=== PATIENT | male | born 1955 | race Caucasian/White ===

== ENCOUNTER → 2019-05-08 08:49 | Outpatient (CLI) | payer OTHER, SELFPAY ==
--- NOTE | 2019-05-08 | DI.ECHO.S_ITS ---
[facility] +---------+ : : [address] : : : [place], [place] : : : : [id number] : : : : Phone: [phone] Echocardiogram Report + + :Name: MADDIE DE LEON Study Date: 05/08/2019 Height: 69 in : :[facility] Exam Location: [facility] Weight: 183 lb : : Gender: Male BSA: 2.0 m2 : :: 1955 Age: 63 yrs BP: 128/74 mmHg: :Reason For Study: DIZZINESS : : Performed By: Conrado Yu : :Referring: ADELA VILLEDA : + + Interpretation Summary Overall left ventricular systolic function is preserved with the ejection fraction visually estimated to be 55-60% with thinning and akinesis of the proximal fourth of the inferior wall but no other focal wall motion abnormalities. There is borderline concentric left ventricular hypertrophy with diastolic parameters that suggest probable normal left ventricular diastolic function and normal filling pressures. There has been no significant change since the previous study. The right ventricle is at the upper limits of normal in size and systolic function is normal and appears unchanged compared to the previous study. The right ventricular systolic pressure is estimated to be at least 24 mmHg based on an estimated right atrial pressure of 3 mm Hg, and it is likely slightly lower compared to the previous study. Both atria are normal in size but both have slightly increased in size compared to the previous study. There is no significant valvular heart disease. Procedure: A two-dimensional transthoracic echocardiogram with color flow and Doppler was performed. The study quality was technically difficult. Comparison is made with the echocardiogram of 11/20/10. The patient was in normal sinus rhythm during the exam. Left Ventricle: The left ventricle is normal in size. There is borderline concentric left ventricular hypertrophy. Overall left ventricular systolic function is preserved. The ejection fraction is estimated to be 55-60%. There is thinning and akinesis of the proximal fourth of the inferior wall but no other focal wall motion abnormalities. There is been no significant change from the previous exam. Diastolic parameters suggest probable normal left ventricular diastolic function and normal filling pressures. There has been no significant change since the previous study. Right Ventricle: The right ventricle is at the upper limits of normal in size. The right ventricular systolic function is normal. This is unchanged compared to the previous study. Atria: Both atria are normal in size. This is slightly increased in size compared to the previous study. The interatrial septum is intact with no evidence for an atrial septal defect. Mitral Valve: The mitral valve leaflets are slightly calcified. The mitral valve leaflets appear to open well. There is trace mitral regurgitation. Aortic Valve: The aortic valve is trileaflet. The aortic valve is slightly calcified. The aortic valve opens well. No aortic regurgitation is present. Tricuspid Valve: The tricuspid valve is normal in structure and function. There is trace tricuspid regurgitation. The right ventricular systolic pressure is estimated to be at least 24 mmHg based on an estimated right atrial pressure of 3 mm Hg. This is slightly lower compared to the previous study. Pulmonic Valve: The pulmonic valve is not well visualized. There is no pulmonic valvular regurgitation. There is no significant valvular heart disease. Great Vessels: The aortic root is normal size. The ascending aorta could not be visualized. The pulmonary artery is normal size. The IVC is of normal diameter and collapses greater than 50% with a sniff. This suggests a low right atrial pressure of 3 mm Hg. Pericardium/ Pleura There is no pericardial effusion. There is no pleural effusion. MMode/2D Measurements & Calculations LVIDd: 4.1 cm LVOT diam: 2.2 cm LVIDs: 3.3 cm Ao root diam: 2.8 cm FS: 19.4 % EPSS: 0.52 cm IVSd: 0.95 cm LVPWd: 1.0 cm LV paz. diameter/BSA (cm/m^2): 2.1 LV sys. diameter/BSA (cm/m^2): 1.7 LA dimension: 3.4 cm RA long axis: 4.6 cm LA A2 area: 20.3 cm2 RA area: 16.3 cm2 LA A4 area: 17.4 cm2 RA vol: 49.8 ml LA length (vol): 5.0 cm RA : 25.0 ml/m2 LA vol: 60.3 ml IVC diam: 2.1 cm LA vol index: 30.3 ml/m2 Doppler Measurements & Calculations Ao V2 max: 135.1 cm/sec LVOT Max Jordan: 81.9 cm/sec Ao V2 mean: 101.5 cm/sec LV V1 max P.7 mmHg Ao max P.3 mmHg LV V1 VTI: 20.2 cm Ao mean P.4 mmHg JOHN(I,D): 2.8 cm2 Ao V2 VTI: 28.1 cm JOHN(V,D): 2.4 cm2 sev ratio: 0.72 JOHN indexed to BSA (cm^2/m^2): 1.4 MV E max jordan: 57.0 cm/sec TR max jordan: 228.5 cm/sec MV A max jordan: 66.8 cm/sec TR max P.9 mmHg MV E/A: 0.85 PA V2 max: 74.1 cm/sec Med Peak E' Jordan: 7.7 cm/sec PA V2 mean: 59.0 cm/sec E/E' med: 7.4 PA mean P.5 mmHg Lat Peak E' Jordan: 7.9 cm/sec PA pr(Accel): 44.1 mmHg E/E' lat: 7.2 PA Accel Time: 0.08 sec E/e' average: 7.3 MV dec time: 0.22 sec SV(PAULOT): 78.7 ml Reading Physician:PM
== END ==
PROVIDERS: PCP Nurse Practitioner Family; Visit Provider Specialist
DX: R42 Dizziness and giddiness (principal)
CPT/HCPCS: 93306

== ENCOUNTER 2023-08-14 13:58 | Emergency (ER) | payer MEDICARE, OTHER, SELFPAY ==
[2023-08-14] VITALS (13 sets, daily range): BP systolic 136–174; BP diastolic 69–90; PULSE 60–96; RESP 16–20; TEMP 36.6–37.3; O2SAT 93–99; BMI 27.0
[2023-08-14 14:51] LABS: Add Manual Diff / Slide Review NO; Basophils Absolute Auto 100 /uL (0-100); Basophils Percent Auto 0.7 % (0-2); Eosinophils Absolute Auto 200 /uL (0-450); Eosinophils Percent Auto 1.2 % (2-4); Hematocrit 41.8 % (41-53); Hemoglobin 14.8 g/dL (13.5-17.5); Lymphocytes Absolute Auto 1800 /uL (1100-4500); Lymphocytes Percent Auto 12.5 % (25-40); Mean Corpuscular HGB Conc 35.3 % (30-36); Mean Corpuscular Hemoglobin 30.9 PG (26-34); Mean Corpuscular Volume 87.4 fL (80-100); Monocytes Absolute Auto 1000 /uL (0-900); Neutrophils Absolute Auto 11200 /uL (1500-7000); Neutrophils Percent Auto 78.6 % (50-75); Platelet Count 254 X10^3/uL (150-400); Red Blood Cell Count 4.78 X10^6/uL (4.5-5.9); Red Cell Distribution Width 13.1 % (11.6-14.8); White Blood Cell Count 14.2 X10^3/uL (4.5-11.0)
[2023-08-14 15:30] LABS: Alanine Aminotransferase 21 IU/L (<50); Albumin 4.5 g/dL (3.5-5.0); Albumin Globulin Ratio 1.5 (1.0-2.8); Alkaline Phosphatase 50 U/L (38-126); Aspartate Aminotransferase 26 IU/L (17-59); BUN Creatinine Ratio 11.5 (6-22); Bilirubin Total 0.6 mg/dL (0.2-1.3); Blood Urea Nitrogen 13 mg/dL (9-20); Calcium 9.6 mg/dL (8.4-10.2); Carbon Dioxide 28 mmol/L (22-32); Chloride 90 mmol/L (98-107); Estimated Glomerular Filt Rate > 60 mL/min (>60); Glucose 133 mg/dL (80-110); HEMOLYSIS < 15 (0-50); Lipase 88 U/L (23-300); Potassium 4.2 mmol/L (3.4-5.1); Sodium 128 mmol/L (137-145); Total Protein 7.5 g/dL (6.3-8.2)
--- NOTE | 2023-08-14 17:16 | DI.CT.S_ITS ---
PROCEDURE: CT ABDOMEN PELVIS W CON INDICATIONS: Lower abdominal pain TECHNIQUE: After the administration of IV contrast, axial sections were acquired from the lung bases to the pubic symphysis. Coronal and sagittal reformats were performed. For radiation dose reduction, the following was used: automated exposure control, adjustment of mA and/or kV according to patient size. COMPARISON: [facility], CT, ABDOMEN/PELVIS WITH CONTRAST, 01/30/2011, 18:47. FINDINGS: Image quality: Excellent. Lung bases: Unremarkable. Heart: No significant findings. ABDOMEN: Liver: Small cyst. Gallbladder: Not distended. No pericholecystic fluid. Biliary ducts: Unremarkable. Pancreas: Unremarkable. Spleen: Small splenule. Adrenal Glands: No nodule. Kidneys and Ureters: No hydronephrosis. Small simple left renal cysts. Stomach and Bowel: Inflammatory change about the sigmoid colon in the left lower quadrant, (2/61). There is adjacent thickening of the sigmoid colon. No fluid collection to suggest abscess. No free air identified. The appendix is partially visualized and is not dilated with air within its lumen. No small bowel obstruction. The stomach is within normal limits. Peritoneum: No abnormal intraperitoneal fluid. No free air. Ventral Wall: No hernia. Abdominal Nodes: No retroperitoneal or mesenteric adenopathy by size criteria. Vessels: Aorta and inferior vena cava are normal in size. Retroaortic left renal vein. PELVIS: Pelvic Organs: Prostatomegaly. Bladder: No stone. Pelvic Nodes: No enlarged lymph nodes. Miscellaneous: No inguinal hernias are seen. Bones: No suspicious osseous lesion. Bilateral L5 pars defect. IMPRESSION: 1. Left lower quadrant diverticulitis. No abscess. Thickening of the sigmoid colon. Recommend follow-up colonoscopy if not recently performed to exclude malignancy. 2. The appendix is partially visualized and is within normal limits. 3. No small bowel obstruction. No free fluid. Comment: Findings were discussed with Dr. Bailey at time of dictation. Dictated by: Adam Zheng M.D. on 08/14/2023 at 18:00 Approved by: Adam Zheng M.D. on 08/14/2023 at 18:10
--- NOTE | 2023-08-14 17:25 | ED_ITS ---
HPI - Abdominal Pain <Fahad Morales MD - Last Filed: 08/20/23 08:32> General Chief Complaint: Abdominal Pain Stated Complaint: Lower Stomach pain Time Seen by Provider: 08/14/23 17:08 Source: patient Mode of arrival: Ambulatory History of Present Illness HPI narrative: Patient here for complaints of bilateral lower abdominal pain with dysuria. Ongoing for the past 10 days. Patient has history of diverticulosis by colonoscopy in the past but no history of diverticulitis. Has had chills, has had nausea without vomiting. Has had diarrhea. No black or bloody stools. Pain worse with palpation or movement. He does not want anything for pain at this time. Pain is sharp he states. Denies any other abdominal surgical history Related Data Home Medications Medication Instructions Recorded Confirmed LISINOPRIL (Zestril / Prinivil) 5 mg PO BID ##0 01/30/11 Metoprolol Tartrate (Lopressor) 50 mg PO BID ##0 01/30/11 [FISH OIL] 1,000 mg BID ##0 01/30/11 nitroglycerin 0.3 mg sublingual 0.3 mg sublingual PRN PRN #0 tabs 08/18/16 tablet (Nitrostat) aspirin 81 mg tablet,delayed ##0 12/30/17 release rosuvastatin 40 mg tablet (Crestor) ##0 12/30/17 Previous Rx's Medication Instructions Recorded ciprofloxacin HCl 500 mg tablet 500 mg PO BID #14 tabs 12/30/17 (Cipro) metronidazole 500 mg tablet 500 mg PO BID #14 tabs 12/30/17 (Flagyl) amoxicillin 875 mg-potassium 1 tab PO Q12H #20 tabs 08/14/23 clavulanate 125 mg tablet hydrocodone 5 mg-acetaminophen 325 1 tab PO Q4-6H PRN pain #10 tabs 08/14/23 mg tablet ondansetron 4 mg disintegrating 4 mg PO TID-QID PRN nausea and 08/14/23 tablet vomiting #10 tabs Allergies Allergy/AdvReac Type Severity Reaction Status Date / Time No Known Drug Allergies Allergy Unverified 08/11/23 13:48 Review of Systems <Fahad Morales MD - Last Filed: 08/20/23 08:32> Review of Systems Narrative: GENERAL: Positive chills, negative fatigue, malaise, fever, sweats. HEENT: negative sinus pain, ear pain, sore throat RESPIRATORY: negative dyspnea, cough CARDIOVASCULAR: negative chest pain, palpitations GASTROINTESTINAL: Positive nausea, abdominal pain : negative dysuria, frequency, hematuria, patient states uncomfortable with urination MUSCULOSKELETAL: negative muscle or bony pain SKIN: negative rash, skin lesions NEUROLOGIC: negative weakness, numbness ROS Unobtainable: All systems reviewed & are unremarkable except as noted in HPI and below Patient History <Fahad Morales MD - Last Filed: 08/20/23 08:32> Social History Smoking Status: Current every day smoker Smoking Status: Current every day smoker tobacco type: cigarettes Substance Use Type: does not use Exam <Fahad Morales MD - Last Filed: 08/20/23 08:32> Narrative Exam Narrative: GENERAL: in no distress, not toxic not dyspneic HEAD: Normocephalic. EYES: Pupils equal round ENT: Mucous membranes moist. NECK: Trachea midline. CARDIOVASCULAR: Regular rate and rhythm RESPIRATORY: Clear to auscultation. Breath sounds equal bilaterally. No wheezes, rales, or rhonchi. GASTROINTESTINAL: Abdomen soft, abdomen is soft, there is reproducible right lower quadrant suprapubic and left lower quadrant tenderness. No pain out of proportion to exam. Bowel sounds are present. No peritoneal signs. No CVA tenderness. EXTREMITIES: No gross deformities. BACK: No flank tenderness. NEURO: AOx4. Clear speech SKIN: Warm and dry PSYCH: Not anxious, is cooperative Initial Vital Signs Initial Vital Signs: Vital Signs Temperature 99.1 F 08/14/23 14:03 Pulse Rate 78 08/14/23 14:03 Respiratory Rate 18 08/14/23 14:03 Blood Pressure 153/85 H 08/14/23 14:03 Pulse Oximetry 99 08/14/23 14:03 Oxygen Delivery Method Room Air 08/14/23 14:03 <Jasiel Bailey DO - Last Filed: 08/15/23 01:27> Initial Vital Signs Initial Vital Signs: Vital Signs Temperature 99.1 F 08/14/23 14:03 Pulse Rate 78 08/14/23 14:03 Respiratory Rate 18 08/14/23 14:03 Blood Pressure 153/85 H 08/14/23 14:03 Pulse Oximetry 99 08/14/23 14:03 Oxygen Delivery Method Room Air 08/14/23 14:03 Course <Fahad Morales MD - Last Filed: 08/20/23 08:32> Orders Ordered: Discontinued Medications Sodium Chloride (Normal Saline 0.9%) 1,000 mls @ 1,000 mls/hr IV BOLUS ONE Stop: 08/14/23 18:15 Last Infusion: 08/14/23 18:44 Dose: Infused Documented By: Admin: 08/14/23 17:41 Dose: 1,000 mls/hr Documented By: Ondansetron HCl (Ondansetron 4 Mg Odt) 4 mg PO NOW PRN PRN Reason: Nausea And Vomiting Ondansetron HCl (Ondansetron 4 Mg/2 Ml Inj) 4 mg IV NOW PRN PRN Reason: Nausea And Vomiting Vital Signs Vital signs: Vital Signs - 8 hr 08/14/23 17:30 08/14/23 17:37 08/14/23 17:39 Temperature Pulse Rate 60 96 H Respiratory Rate 16 Blood Pressure 142/69 H 166/71 H Pulse Oximetry 97 Oxygen Delivery Method Room Air Oxygen Flow Rate 08/14/23 17:39 08/14/23 18:00 08/14/23 18:00 Temperature Pulse Rate 95 H 86 Respiratory Rate Blood Pressure 155/80 H Pulse Oximetry 99 99 Oxygen Delivery Method Oxygen Flow Rate 08/14/23 18:30 08/14/23 18:46 Temperature 97.9 F Pulse Rate 84 84 Respiratory Rate 16 Blood Pressure 155/80 H Pulse Oximetry 99 99 Oxygen Delivery Method Room Air Oxygen Flow Rate 0 <Jasiel Bailey DO - Last Filed: 08/15/23 01:27> Orders Ordered: Discontinued Medications Sodium Chloride (Normal Saline 0.9%) 1,000 mls @ 1,000 mls/hr IV BOLUS ONE Stop: 08/14/23 18:15 Last Infusion: 08/14/23 18:44 Dose: Infused Documented By: Admin: 08/14/23 17:41 Dose: 1,000 mls/hr Documented By: Ondansetron HCl (Ondansetron 4 Mg Odt) 4 mg PO NOW PRN PRN Reason: Nausea And Vomiting Ondansetron HCl (Ondansetron 4 Mg/2 Ml Inj) 4 mg IV NOW PRN PRN Reason: Nausea And Vomiting Vital Signs Vital signs: Vital Signs - 8 hr 08/14/23 17:30 08/14/23 17:37 08/14/23 17:39 Temperature Pulse Rate 60 96 H Respiratory Rate 16 Blood Pressure 142/69 H 166/71 H Pulse Oximetry 97 Oxygen Delivery Method Room Air Oxygen Flow Rate 08/14/23 17:39 08/14/23 18:00 08/14/23 18:00 Temperature Pulse Rate 95 H 86 Respiratory Rate Blood Pressure 155/80 H Pulse Oximetry 99 99 Oxygen Delivery Method Oxygen Flow Rate 08/14/23 18:30 08/14/23 18:46 Temperature 97.9 F Pulse Rate 84 84 Respiratory Rate 16 Blood Pressure 155/80 H Pulse Oximetry 99 99 Oxygen Delivery Method Room Air Oxygen Flow Rate 0 MDM - Abdominal Pain <Fahad Morales MD - Last Filed: 08/20/23 08:32> Lab Data 08/14/23 14:25 08/14/23 14:25 Labs: Lab Results 08/14/23 08/14/23 Range/Units 14:25 16:12 WBC 14.2 H (4.5-11.0) X10^3/uL RBC 4.78 (4.5-5.9) X10^6/uL Hgb 14.8 (13.5-17.5) g/dL Hct 41.8 (41-53) % MCV 87.4 (80-100) fL MCH 30.9 (26-34) PG MCHC 35.3 (30-36) % RDW 13.1 (11.6-14.8) % Plt Count 254 (150-400) X10^3/uL Neut % (Auto) 78.6 H (50-75) % Lymph % (Auto) 12.5 L (25-40) % [place] % (Auto) 7.0 (3-14) % Eos % (Auto) 1.2 L (2-4) % Baso % (Auto) 0.7 (0-2) % Neut # (Auto) 92110 H (4846-8843) /uL Lymph # (Auto) 1800 (3429-4524) /uL [place] # (Auto) 1000 H (0-900) /uL Eos # (Auto) 200 (0-450) /uL Baso # (Auto) 100 (0-100) /uL Sodium 128 L (137-145) mmol/L Potassium 4.2 (3.4-5.1) mmol/L Chloride 90 L (98-107) mmol/L Carbon Dioxide 28 (22-32) mmol/L BUN 13 (9-20) mg/dL Creatinine 1.13 (0.66-1.25) mg/dL Estimated GFR > 60 (>60) mL/min BUN/Creatinine Ratio 11.5 (6-22) Glucose 133 H (80-110) mg/dL Calcium 9.6 (8.4-10.2) mg/dL Total Bilirubin 0.6 (0.2-1.3) mg/dL AST 26 (17-59) IU/L ALT 21 (<50) IU/L Alkaline Phosphatase 50 (38-126) U/L Total Protein 7.5 (6.3-8.2) g/dL Albumin 4.5 (3.5-5.0) g/dL Globulin 3.0 (1.7-4.1) g/dL Albumin/Globulin Ratio 1.5 (1.0-2.8) Lipase 88 (23-300) U/L Urine Color Yellow Urine Appearance Clear Urine pH 6.5 (4.5-8.0) Ur Specific [place] 1.025 (1.000-1.035) Urine Protein Trace H (Negative) Urine Glucose (UA) Negative (Negative) g/dL Urine Ketones Negative (NEGATIVE) Urine Occult Blood Negative (Negative) Urine Nitrate Negative (Negative) Urine Bilirubin Negative (NEGATIVE) Urine Urobilinogen 1.0 (0.2) E.U./dL Ur Leukocyte Esterase Negative (NEGATIVE) Urine RBC 1-5/hpf (0-5/HPF) Urine WBC 1-5/hpf (0-5/HPF) Ur Squamous Epith Cells 10-30 /hpf H (0-5/HPF) Amorphous Sediment 1+ Urine Bacteria Few (2-10) H (None) Ur Culture Indicated? Specimen cultured Point of care testing: Urine Dip Bedside Urine Glucose Negative Bedside Urine Bilirubin - Negative Bedside Urine Ketone - Negative Urine Specific [place] 1.020 Bedside Urine Occult Blood - Negative Bedside Urine pH 6.0 Bedside Urine Protein +/- 15 Bedside Urine Urobilinogen - Negative Bedside Urine Nitrite - Negative Bedside Urine Leukocytes - Negative Esterase MDM Narrative Medical decision making narrative: Patient here for complaints of bilateral lower abdominal pain with dysuria. Ongoing for the past 10 days. Patient has history of diverticulosis by colonoscopy in the past but no history of diverticulitis. Has had chills, has had nausea without vomiting. Has had diarrhea. No black or bloody stools. Pain worse with palpation or movement. He does not want anything for pain at this time. Pain is sharp he states. Denies any other abdominal surgical history After history and exam CBC CMP normal saline CT abdomen pelvis [facility] CC: Abdominal pain Complicating co-morbidities: None Data collected from: Patient Medical records reviewed: Patient seen here 3 days ago at walk-in clinic for the same, he did not want go to the emergency department at that time Differential considered: Includes but not limited to diverticulitis colitis appendicitis UTI kidney stone Exam documented above, pertinent findings include: Tender lower abdomen bilaterally Lab Test results independently reviewed as above. Pertinent findings: WBC 14.2 sodium 128 AST 26 ALT 21 lipase 88 Urinalysis negative nitrate negative leukocyte esterase Independently reviewed EKG normal sinus rhythm rate [address] elevation or depression Imaging studies independently reviewed: CT abdomen pelvis Consultations: Treatments: Re-evaluations: Discussion: Diagnosis: 6:00 p.m.. Carmen: Sign out to Dr Bailey reassess patient. CT imaging pending results. <Jasiel Bailey, - Last Filed: 08/15/23 01:27> Lab Data Labs: Lab Results 08/14/23 08/14/23 Range/Units 14:25 16:12 WBC 14.2 H (4.5-11.0) X10^3/uL RBC 4.78 (4.5-5.9) X10^6/uL Hgb 14.8 (13.5-17.5) g/dL Hct 41.8 (41-53) % MCV 87.4 (80-100) fL MCH 30.9 (26-34) PG MCHC 35.3 (30-36) % RDW 13.1 (11.6-14.8) % Plt Count 254 (150-400) X10^3/uL Neut % (Auto) 78.6 H (50-75) % Lymph % (Auto) 12.5 L (25-40) % [place] % (Auto) 7.0 (3-14) % Eos % (Auto) 1.2 L (2-4) % Baso % (Auto) 0.7 (0-2) % Neut # (Auto) 72313 H (6984-2040) /uL Lymph # (Auto) 1800 (0426-1911) /uL [place] # (Auto) 1000 H (0-900) /uL Eos # (Auto) 200 (0-450) /uL Baso # (Auto) 100 (0-100) /uL Sodium 128 L (137-145) mmol/L Potassium 4.2 (3.4-5.1) mmol/L Chloride 90 L (98-107) mmol/L Carbon Dioxide 28 (22-32) mmol/L BUN 13 (9-20) mg/dL Creatinine 1.13 (0.66-1.25) mg/dL Estimated GFR > 60 (>60) mL/min BUN/Creatinine Ratio 11.5 (6-22) Glucose 133 H (80-110) mg/dL Calcium 9.6 (8.4-10.2) mg/dL Total Bilirubin 0.6 (0.2-1.3) mg/dL AST 26 (17-59) IU/L ALT 21 (<50) IU/L Alkaline Phosphatase 50 (38-126) U/L Total Protein 7.5 (6.3-8.2) g/dL Albumin 4.5 (3.5-5.0) g/dL Globulin 3.0 (1.7-4.1) g/dL Albumin/Globulin Ratio 1.5 (1.0-2.8) Lipase 88 (23-300) U/L Urine Color Yellow Urine Appearance Clear Urine pH 6.5 (4.5-8.0) Ur Specific [place] 1.025 (1.000-1.035) Urine Protein Trace H (Negative) Urine Glucose (UA) Negative (Negative) g/dL Urine Ketones Negative (NEGATIVE) Urine Occult Blood Negative (Negative) Urine Nitrate Negative (Negative) Urine Bilirubin Negative (NEGATIVE) Urine Urobilinogen 1.0 (0.2) E.U./dL Ur Leukocyte Esterase Negative (NEGATIVE) Urine RBC 1-5/hpf (0-5/HPF) Urine WBC 1-5/hpf (0-5/HPF) Ur Squamous Epith Cells 10-30 /hpf H (0-5/HPF) Amorphous Sediment 1+ Urine Bacteria Few (2-10) H (None) Ur Culture Indicated? Specimen cultured Point of care testing: Urine Dip Bedside Urine Glucose Negative Bedside Urine Bilirubin - Negative Bedside Urine Ketone - Negative Urine Specific [place] 1.020 Bedside Urine Occult Blood - Negative Bedside Urine pH 6.0 Bedside Urine Protein +/- 15 Bedside Urine Urobilinogen - Negative Bedside Urine Nitrite - Negative Bedside Urine Leukocytes - Negative Esterase MDM Narrative Medical decision making narrative: Patient here for complaints of bilateral lower abdominal pain with dysuria. Ongoing for the past 10 days. Patient has history of diverticulosis by colonoscopy in the past but no history of diverticulitis. Has had chills, has had nausea without vomiting. Has had diarrhea. No black or bloody stools. Pain worse with palpation or movement. He does not want anything for pain at this time. Pain is sharp he states. Denies any other abdominal surgical history After history and exam CBC CMP normal saline CT abdomen pelvis MDM CC: Abdominal pain Complicating co-morbidities: None Data collected from: Patient Medical records reviewed: Patient seen here 3 days ago at walk-in clinic for the same, he did not want go to the emergency department at that time Differential considered: Includes but not limited to diverticulitis colitis appendicitis UTI kidney stone Exam documented above, pertinent findings include: Tender lower abdomen bilaterally Lab Test results independently reviewed as above. Pertinent findings: WBC 14.2 sodium 128 AST 26 ALT 21 lipase 88 Urinalysis negative nitrate negative leukocyte esterase Independently reviewed EKG normal sinus rhythm rate [address] elevation or depression Imaging studies independently reviewed: CT abdomen pelvis Consultations: Radiology (Dr. Zheng) called with CT findings noting diverticulitis without perf or abscess, though this is significant thickening. Will need follow up colonoscopy Treatments: Fluids, zofran 6:00 p.m.. Carmen: Sign out to Dr Bailey reassess patient. CT imaging pending results. [1800] (Leo) Patient received in sign out from [Carmen]. I have reviewed the clinical course and performed an independent history and physical exam. Re-evaluations: Patient's pain is well controlled Discussion: Patient with lower abdominal pain sent for evaluation. Multiple diagnoses considered as noted above. Patient shows no signs of sepsis, pain is controlled and he is tolerating orals. There is some elevation of white blood cells and imaging shows diverticulitis without abscess or perforation. He is appropriate for discharge Discharge Plan Departure Patient Disposition: Home Clinical Impression: Diverticulitis Instructions: DI for Diverticulitis Activity Restrictions/Additional Instructions: *You have been diagnosed with [abdominal pain due to diverticulitis] * As we discussed your history and physical exam as well as labs and imaging are very reassuring. There is no evidence of any severe diagnoses that would require a specific or immediate intervention. *What to do: *Please continue to take your regular medications as directed. [x ] New medication prescriptions sent to your pharmacy: [[facility] ] *Please follow up with your primary care provider in 2-3 days, call for an appointment. Let them know you were seen in the Emergency Department and that we ask that you be seen in follow up. We will electronically transmit a record of today's note if your PCP is in our system *Please consider a clear liquid diet for the next 24-48 hours and then slowly advance to regular as tolerated. Also, try to avoid alcohol, nicotine, caffeine, spicy, acidic or fatty foods as this may worsen your symptoms *The CT shows diverticulitis with no evidence of abscess or perforation, but a large amount of thickening. Radiology recommends a colonoscopy after your diverticulitis clears to make sure there is not another underlying problem. Your Primary Care Provider can help you arrange this. *If you do not have a primary care provider please contact the [facility] Resource line at [phone]. They will ask some questions about your medical history and help get you set up with a doctor in the community. *Return to Emergency Department if you should have any new, worsening or concerning symptoms, such as [fever greater than 101 F, shaking chills, worsening pain, persistent vomiting or other bothersome symptoms] Prescriptions: New amoxicillin-pot clavulanate 875-125 mg tablet 1 tab PO Q12H Qty: 20 0RF hydrocodone-acetaminophen 5-325 mg tablet 1 tab PO Q4-6H PRN (Reason: pain) Qty: 10 0RF ondansetron 4 mg tablet,disintegrating 4 mg PO TID-QID PRN (Reason: nausea and vomiting) Qty: 10 0RF No Action Metoprolol Tartrate (Lopressor) 50 mg PO BID Qty: 0 [FISH OIL] 1,000 mg BID Qty: 0 LISINOPRIL (Zestril / Prinivil) 5 mg PO BID Qty: 0 nitroglycerin [Nitrostat] 0.3 MG tablet, sublingual 0.3 mg Sublingual PRN PRNQty: 0 aspirin 81 MG tablet,delayed release (DR/EC) Qty: 0 rosuvastatin [Crestor] 40 MG tablet Qty: 0 metronidazole [Flagyl] 500 MG tablet 500 mg PO BID Qty: 14 0RF ciprofloxacin HCl [Cipro] 500 MG tablet 500 mg PO BID Qty: 14 0RF Referrals: Jia Orlando ARNP [Primary Care Provider] - Stand Alone Forms: Patient Portal/API
--- NOTE | 2023-08-14 17:27 | PC.NURSE ---
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
[2023-08-14] MEDS: SODIUM CHLORIDE 0.9% 1,000 ML 1000 ML IV (17:41)
[2023-08-14 17:43] LABS: Appearance Urine UA CLEAR; Bilirubin Urine UA NEGATIVE (NEGATIVE); Color Urine UA YELLOW; Glucose Urine UA NEGATIVE (Negative); Ketones Urine UA NEGATIVE (NEGATIVE); Leukocyte Esterase Urine UA NEGATIVE (NEGATIVE); Nitrite Urine UA NEGATIVE (Negative); Occult Blood Urine UA NEGATIVE (Negative); Protein Urine UA TRACE (Negative); Specific Gravity Urine UA 1.025 (1.000-1.035); pH Urine UA 6.5 (4.5-8.0)
[2023-08-14 17:51] LABS: Amorphous Sediment Urine 1+; Bacteria Urine Few (2-10); Culture Indicated Urine Specimen Cultured; RBC Urine 1-5/HPF (0-5/HPF); Squamous Epithelial Cell Urine 10-30 /HPF (0-5/HPF); WBC Urine 1-5/HPF (0-5/HPF)
== END 2023-08-14 18:46 | disposition home or self-care (01) ==
PROVIDERS: Emergency Medicine; Emergency Provider Emergency Medicine; PCP Nurse Practitioner; Referring Provider Emergency Medicine
DX: K57.92 Diverticulitis of intestine, part unspecified, without perforation or abscess without bleeding (principal); R30.0 Dysuria; R03.0 Elevated blood-pressure reading, without diagnosis of hypertension
CPT/HCPCS: 36415; 74177; 80053; 81001; 81003; 83690; 85025; 87086; 93005; 93010; 96360; 99284; Q9967

== ENCOUNTER 2023-08-20 18:59 | Emergency (ER) | payer MEDICARE, OTHER, SELFPAY ==
[2023-08-20 19:03] VITALS: BP 147/82; PULSE 72; RESP 16; TEMP 37.1; O2SAT 98; BMI 27.0
--- NOTE | 2023-08-20 19:21 | ED.GENADULT ---
HPI - General Adult General Chief complaint: Abdominal Pain Stated complaint: here t-4/states diverticulitus/V Time Seen by Provider: 08/20/23 19:03 History of Present Illness HPI narrative: 67-year-old male smoker with history of hypertension and hyperlipidemia as well as diverticulitis returns for evaluation. He was seen here a few days ago with complaint of lower abdominal discomfort and had an extensive evaluation including labs with an elevated white blood cell count and a CT of his abdomen and pelvis which demonstrated diverticulitis in the left lower quadrant without evidence of perforation or abscess. He was discharged on prescriptions for pain control and Augmentin which he has been taking as directed. He states that he has persistent pain which is certainly not any better but he does not necessarily know if it is any worse. He did have some vomiting tonight. Denies any fever or chills. His pain is worse when he moves and improves with rest. Related Data Home Medications Medication Instructions Recorded Confirmed LISINOPRIL (Zestril / Prinivil) 5 mg PO BID ##0 01/30/11 Metoprolol Tartrate (Lopressor) 50 mg PO BID ##0 01/30/11 [FISH OIL] 1,000 mg BID ##0 01/30/11 nitroglycerin 0.3 mg sublingual 0.3 mg sublingual PRN PRN #0 tabs 08/18/16 tablet (Nitrostat) aspirin 81 mg tablet,delayed ##0 12/30/17 release rosuvastatin 40 mg tablet (Crestor) ##0 12/30/17 Previous Rx's Medication Instructions Recorded ciprofloxacin HCl 500 mg tablet 500 mg PO BID #14 tabs 12/30/17 (Cipro) metronidazole 500 mg tablet 500 mg PO BID #14 tabs 12/30/17 (Flagyl) amoxicillin 875 mg-potassium 1 tab PO Q12H #20 tabs 08/14/23 clavulanate 125 mg tablet hydrocodone 5 mg-acetaminophen 325 1 tab PO Q4-6H PRN pain #10 tabs 08/14/23 mg tablet ondansetron 4 mg disintegrating 4 mg PO TID-QID PRN nausea and 08/14/23 tablet vomiting #10 tabs ciprofloxacin HCl 500 mg tablet 500 mg PO Q12H #20 tabs 08/20/23 (Cipro) hydrocodone 5 mg-acetaminophen 325 1 tab PO Q4-6H PRN pain #14 tabs 08/20/23 mg tablet metronidazole 500 mg tablet 500 mg PO Q8H #30 tabs 08/20/23 Allergies Allergy/AdvReac Type Severity Reaction Status Date / Time No Known Drug Allergies Allergy Unverified 08/11/23 13:48 Review of Systems Review of Systems Narrative: GENERAL: Denies chills, fatigue, malaise, fever, sweats. HEENT: Denies sinus pain, ear pain, sore throat, difficulty swallowing, dizziness. RESPIRATORY: Denies dyspnea, cough, wheezing, hemoptysis, sputum. CARDIOVASCULAR: Denies chest pain, palpitations, orthopnea, edema, GASTROINTESTINAL: See HPI : Denies dysuria, frequency, incontinence, hematuria, urinary retention. MUSCULOSKELETAL: denies weakness, joint pain, or bony pain SKIN: Denies rash, skin lesions, or other NEUROLOGIC: Denies weakness, headache, numbness, change in speech, confusion, seizures, incoordination. PSYCHIATRIC: No concerning psychosocial issues. 12 point review of systems is negative except for those stated above Patient History Social History Smoking Status: Current every day smoker Smoking Status: Current every day smoker tobacco type: cigarettes Substance Use Type: does not use Exam Narrative Exam Narrative: GENERAL: [67] year old patient appears stated age. Well-developed patient, in mild distress. HEAD: Atraumatic. Normocephalic. EYES: Pupils equal round and reactive. Extraocular motions intact. No scleral icterus. No injection or drainage. ENT: Nose without bleeding, purulent drainage. Throat without erythema, tonsillar hypertrophy or exudate. Airway patent. NECK: Trachea midline. Non tender CARDIOVASCULAR: Regular rate and rhythm without murmurs, gallops, or rubs. RESPIRATORY: Clear to auscultation. Breath sounds equal bilaterally. No wheezes, rales, or rhonchi. GASTROINTESTINAL: Abdomen soft, tender in the suprapubic region and left lower quadrant with local guarding, bowel sounds present but decreased., nondistended. EXTREMITIES: No edema or joint tenderness. BACK: Nontender without deformity or crepitance. No flank tenderness. NEURO: AOx3. SKIN: No rash or erythema of visible areas Initial Vital Signs Initial Vital Signs: Vital Signs Temperature 98.8 F 08/20/23 19:03 Pulse Rate 72 08/20/23 19:03 Respiratory Rate 16 08/20/23 19:03 Blood Pressure 147/82 H 08/20/23 19:03 Pulse Oximetry 98 08/20/23 19:03 Oxygen Delivery Method Room Air 08/20/23 19:03 Course Orders Ordered: ED Orders 08/20/23 19:26 XR acute abdomen series Stat 08/20/23 19:39 Complete Blood Count AUTO DIFF Stat Comprehensive Metabolic Panel Stat Lactate (Lactic Acid) Stat Lipase Stat 08/20/23 21:04 CT abdomen pelvis w con Stat Discontinued Medications Ciprofloxacin (Ciprofloxacin 250 Mg Tablet) 500 mg PO NOW ONE Stop: 08/20/23 22:34 Last Admin: 08/20/23 22:54 Dose: 500 mg Documented By: JOSE Hydromorphone HCl (Hydromorphone 0.5 Mg Inj) 0.5 mg IV NOW ONE Stop: 08/20/23 19:27 Last Admin: 08/20/23 19:47 Dose: 0.5 mg Documented By: JOSE Sodium Chloride (Normal Saline 0.9%) 1,000 mls @ 1,000 mls/hr IV BOLUS ONE Stop: 08/20/23 20:25 Last Infusion: 08/20/23 20:47 Dose: Infused Documented By: Admin: 08/20/23 19:47 Dose: 1,000 mls/hr Documented By: JOSE Metronidazole (Metronidazole 500 Mg Tablet) 500 mg PO NOW ONE Stop: 08/20/23 22:34 Last Admin: 08/20/23 22:54 Dose: 500 mg Documented By: JOSE Ondansetron HCl (Ondansetron 4 Mg Odt) 4 mg PO NOW ONE Stop: 08/20/23 19:27 Last Admin: 08/20/23 20:24 Dose: Not Given Documented By: JOSE Ondansetron HCl (Ondansetron 4 Mg/2 Ml Inj) 4 mg IV NOW ONE Stop: 08/20/23 19:39 Last Admin: 08/20/23 19:45 Dose: 4 mg Documented By: JOSE Vital Signs Vital signs: Vital Signs - 8 hr 08/20/23 20:21 08/20/23 20:21 08/20/23 20:30 Temperature Pulse Rate 75 76 Respiratory Rate Blood Pressure 129/82 Pulse Oximetry 97 97 Oxygen Delivery Method 08/20/23 20:30 08/20/23 22:06 08/20/23 22:07 Temperature Pulse Rate 83 83 Respiratory Rate Blood Pressure 153/86 H Pulse Oximetry 94 95 Oxygen Delivery Method 08/20/23 22:07 08/20/23 22:34 Temperature 98 F Pulse Rate 94 H Respiratory Rate 18 Blood Pressure 155/88 H 150/83 H Pulse Oximetry 94 Oxygen Delivery Method Room Air Medical Decision Making Lab Data 08/20/23 19:39 08/20/23 19:39 Labs: Lab Results 08/20/23 Range/Units 19:39 WBC 13.9 H (4.5-11.0) X10^3/uL RBC 4.69 (4.5-5.9) X10^6/uL Hgb 14.4 (13.5-17.5) g/dL Hct 40.4 L (41-53) % MCV 86.1 (80-100) fL MCH 30.7 (26-34) PG MCHC 35.6 (30-36) % RDW 12.9 (11.6-14.8) % Plt Count 272 (150-400) X10^3/uL Neut % (Auto) 78.7 H (50-75) % Lymph % (Auto) 12.2 L (25-40) % [place] % (Auto) 7.3 (3-14) % Eos % (Auto) 1.4 L (2-4) % Baso % (Auto) 0.4 (0-2) % Neut # (Auto) 19563 H (4532-4952) /uL Lymph # (Auto) 1700 (7901-7343) /uL [place] # (Auto) 1000 H (0-900) /uL Eos # (Auto) 200 (0-450) /uL Baso # (Auto) 100 (0-100) /uL Sodium 125 L (137-145) mmol/L Potassium 4.0 (3.4-5.1) mmol/L Chloride 88 L (98-107) mmol/L Carbon Dioxide 25 (22-32) mmol/L BUN 11 (9-20) mg/dL Creatinine 1.01 (0.66-1.25) mg/dL Estimated GFR > 60 (>60) mL/min BUN/Creatinine Ratio 10.9 (6-22) Glucose 103 (80-110) mg/dL Lactate 1.0 (0.7-2.1) mmol/L Calcium 9.4 (8.4-10.2) mg/dL Total Bilirubin 0.7 (0.2-1.3) mg/dL AST 25 (17-59) IU/L ALT 18 (<50) IU/L Alkaline Phosphatase 47 (38-126) U/L Total Protein 7.4 (6.3-8.2) g/dL Albumin 4.3 (3.5-5.0) g/dL Globulin 3.1 (1.7-4.1) g/dL Albumin/Globulin Ratio 1.4 (1.0-2.8) Lipase 64 (23-300) U/L Urine Dip Bedside Urine Glucose Negative Bedside Urine Bilirubin - Negative Bedside Urine Ketone - Negative Urine Specific [place] 1.010 Bedside Urine Occult Blood - Negative Bedside Urine pH 6.0 Bedside Urine Protein - Negative Bedside Urine Urobilinogen - Negative Bedside Urine Nitrite - Negative Bedside Urine Leukocytes - Negative Esterase Point of care testing: Urine Dip Bedside Urine Glucose Negative Bedside Urine Bilirubin - Negative Bedside Urine Ketone - Negative Urine Specific [place] 1.010 Bedside Urine Occult Blood - Negative Bedside Urine pH 6.0 Bedside Urine Protein - Negative Bedside Urine Urobilinogen - Negative Bedside Urine Nitrite - Negative Bedside Urine Leukocytes - Negative Esterase MDM Narrative Medical decision making narrative: [67] year old patient presents with lower abdominal pain and recent diagnosis of diverticulitis Multiple etiologies for patient's symptoms considered including, but not limited to: [Diverticulitis versus diverticulitis with abscess versus perforation versus kidney stone versus bowel obstruction versus other] Prior Charts reviewed in our EMR Primary Historian: patient Labs reviewed and interpreted by myself: Still a leukocytosis at 13.9 which is actually improved from a few days ago when he was at 14.2, no signs of anemia, slight hyponatremia 125, other primary electrolytes and renal function at baseline, lactate 1.0, Imaging reviewed: After shared decision-making we elect to perform another CT scan to rule out perforation or abscess. CT of abdomen and pelvis is performed and thankfully shows no abscess or perforation but does show some interval worsening of thickening Patient's history and physical exam are reassuring. No signs of sepsis. Pain is well controlled and he is tolerating orals. There is no evidence of perforation or abscess on imaging. We did discuss hospitalization for IV antibiotics versus changing the antibiotic regimen given the apparent failure of Augmentin. We discussed risks and benefits and patient would prefer to go home on Cipro Flagyl and understands return precautions which include but are not limited to worsening pain, fever, shaking chills, persistent vomiting or other concerning symptoms Patient's symptoms improved over duration of stay with above-stated therapies. Findings and discharge diagnosis discussed with patient/family followed by verbalization of understanding Return precautions discussed with patient/family whom verbalize understanding of diagnosis and plan Discharge Plan Departure Patient Disposition: Home Clinical Impression: Diverticulitis Instructions: Diverticulitis Activity Restrictions/Additional Instructions: *You have been diagnosed with [abdominal pain due to diverticulitis] * As we discussed your history and physical exam as well as labs and imaging are reassuring and though there is some subtle worsening of the inflammation in your bowel there is no evidence of perforation or abscess. *What to do: * please stop taking the previously prescribed antibiotic and begin taking the new 1 that we gave you tonight. Otherwise please continue to take your regular medications as directed. [x ] New medication prescriptions sent to your pharmacy: [ [facility] [place]] *Please follow up with your primary care provider in 2-3 days, call for an appointment. Let them know you were seen in the Emergency Department and that we ask that you be seen in follow up. We will electronically transmit a record of today's note if your PCP is in our system *Please consider a clear liquid diet for the next 24-48 hours and then slowly advance to regular as tolerated. Also, try to avoid alcohol, nicotine, caffeine, spicy, acidic or fatty foods as this may worsen your symptoms *If you do not have a primary care provider please contact the [facility] Resource line at [phone]. They will ask some questions about your medical history and help get you set up with a doctor in the community. *Return to Emergency Department if you should have any new, worsening or concerning symptoms, such as [fever greater than 101 F, shaking chills, worsening pain, persistent vomiting or other bothersome symptoms] You have been prescribed a short course of narcotic medications. These are potentially dangerous and addictive medications that should be used carefully. While on these medications you cannot drive or operate heavy machinery. Additionally, you cannot sign legal documents or perform any duties such as this. 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 Please understand that we cannot provide further refills of narcotics or controlled substances through the ED and your pain management will need to be through your Primary Care Provider Prescriptions: New ciprofloxacin HCl [Cipro] 500 mg tablet 500 mg PO Q12H Qty: 20 0RF metronidazole 500 mg tablet 500 mg PO Q8H Qty: 30 0RF hydrocodone-acetaminophen 5-325 mg tablet 1 tab PO Q4-6H PRN (Reason: pain) Qty: 14 0RF No Action Metoprolol Tartrate (Lopressor) 50 mg PO BID Qty: 0 [FISH OIL] 1,000 mg BID Qty: 0 LISINOPRIL (Zestril / Prinivil) 5 mg PO BID Qty: 0 nitroglycerin [Nitrostat] 0.3 MG tablet, sublingual 0.3 mg Sublingual PRN PRNQty: 0 aspirin 81 MG tablet,delayed release (DR/EC) Qty: 0 rosuvastatin [Crestor] 40 MG tablet Qty: 0 metronidazole [Flagyl] 500 MG tablet 500 mg PO BID Qty: 14 0RF ciprofloxacin HCl [Cipro] 500 MG tablet 500 mg PO BID Qty: 14 0RF amoxicillin-pot clavulanate 875-125 mg tablet 1 tab PO Q12H Qty: 20 0RF hydrocodone-acetaminophen 5-325 mg tablet 1 tab PO Q4-6H PRN (Reason: pain) Qty: 10 0RF ondansetron 4 mg tablet,disintegrating 4 mg PO TID-QID PRN (Reason: nausea and vomiting) Qty: 10 0RF Referrals: Jia Orlando ARNP [Primary Care Provider] - Stand Alone Forms: Patient Portal/API
--- NOTE | 2023-08-20 19:26 | DI.RAD.S_ITS ---
PROCEDURE: XR ACUTE ABDOMEN SERIES INDICATIONS: worsening LLQ pain TECHNIQUE: One view chest and two views of the abdomen were acquired. COMPARISON: [facility], CT, CT ABDOMEN PELVIS W CON, 08/14/2023, 17:24. FINDINGS: Surgical changes and devices: None. Chest: Lungs are clear. Heart size is normal. No pleural effusions. No pneumoperitoneum. Abdomen: Somewhat prominent loops of small bowel in the left abdomen. Somewhat prominent stool in the right colon. No suspicious calcifications. Visualized solid organ contours appear normal. Bones: No suspicious bony lesions. IMPRESSION: No acute cardiopulmonary abnormality. Prominent loops of small bowel in the left abdomen. This could be due to small bowel obstruction or ileus. Prominent stool in the right colon. If clinically indicated consider CT abdomen pelvis for further evaluation Dictated by: Adam Zheng M.D. on 08/20/2023 at 20:24 Approved by: Adam Zheng M.D. on 08/20/2023 at 20:25
[2023-08-20 19:45] LABS: Add Manual Diff / Slide Review NO; Basophils Absolute Auto 100 /uL (0-100); Basophils Percent Auto 0.4 % (0-2); Eosinophils Absolute Auto 200 /uL (0-450); Eosinophils Percent Auto 1.4 % (2-4); Hematocrit 40.4 % (41-53); Hemoglobin 14.4 g/dL (13.5-17.5); Lymphocytes Absolute Auto 1700 /uL (1100-4500); Lymphocytes Percent Auto 12.2 % (25-40); Mean Corpuscular HGB Conc 35.6 % (30-36); Mean Corpuscular Hemoglobin 30.7 PG (26-34); Mean Corpuscular Volume 86.1 fL (80-100); Monocytes Absolute Auto 1000 /uL (0-900); Monocytes Percent Auto 7.3 % (3-14); Neutrophils Absolute Auto 10900 /uL (1500-7000); Neutrophils Percent Auto 78.7 % (50-75); Platelet Count 272 X10^3/uL (150-400); Red Blood Cell Count 4.69 X10^6/uL (4.5-5.9); Red Cell Distribution Width 12.9 % (11.6-14.8); White Blood Cell Count 13.9 X10^3/uL (4.5-11.0)
[2023-08-20] MEDS: ONDANSETRON 4 MG/2 ML INJ IV (19:45)
[2023-08-20] MEDS: HYDROMORPHONE 0.5 MG INJ IV (19:47)
[2023-08-20] MEDS: SODIUM CHLORIDE 0.9% 1,000 ML 1000 ML IV (19:47)
[2023-08-20 19:57] LABS: Alanine Aminotransferase 18 IU/L (<50); Albumin 4.3 g/dL (3.5-5.0); Albumin Globulin Ratio 1.4 (1.0-2.8); Alkaline Phosphatase 47 U/L (38-126); Aspartate Aminotransferase 25 IU/L (17-59); BUN Creatinine Ratio 10.9 (6-22); Bilirubin Total 0.7 mg/dL (0.2-1.3); Blood Urea Nitrogen 11 mg/dL (9-20); Calcium 9.4 mg/dL (8.4-10.2); Carbon Dioxide 25 mmol/L (22-32); Chloride 88 mmol/L (98-107); Estimated Glomerular Filt Rate > 60 mL/min (>60); Globulin 3.1 g/dL (1.7-4.1); Glucose 103 mg/dL (80-110); HEMOLYSIS 26 (0-50); Lipase 64 U/L (23-300); Sodium 125 mmol/L (137-145); Total Protein 7.4 g/dL (6.3-8.2)
[2023-08-20 20:21] VITALS: BP 129/82; PULSE 75; O2SAT 97
[2023-08-20 20:30] VITALS: BP 153/86; PULSE 76; O2SAT 97
--- NOTE | 2023-08-20 21:04 | DI.CT.S_ITS ---
PROCEDURE: CT ABDOMEN PELVIS W CON INDICATIONS: worsening abd pain, seen 08/14 for divertic TECHNIQUE: After the administration of intravenous contrast, axial sections acquired from the lung bases to the pubic symphysis. Coronal and sagittal reformats were performed. For radiation dose reduction, the following was used: automated exposure control, adjustment of mA and/or kV according to patient size. COMPARISON: [facility], CT, CT ABDOMEN PELVIS W CON, 08/14/2023, 17:24. FINDINGS: Image quality: Excellent. Lung bases: Unremarkable. Heart: No significant findings. ABDOMEN: Liver: Subcentimeter hypodensities, presumably cysts. Gallbladder: Normal. Biliary ducts: Nondilated. Pancreas: Normal. Spleen: Normal. Moderate size splenule. Adrenal Glands: No nodules. Kidneys and Ureters: Symmetric enhancement. No nephrolithiasis or hydronephrosis. No hydroureter. 2 left cortical renal cysts. Stomach and Bowel: Hazy pericolonic inflammatory fat stranding in the left lower quadrant involving the proximal sigmoid colon. There are several prominent size diverticula with hyperemia. No extraluminal gas or associated fluid collection. The appendix is normal. There is an increased quantity of colonic stool elsewhere. Small bowel loops are nonobstructed. Proximal gastric wall is diffusely thickened, chronic. Peritoneum: No abnormal intraperitoneal fluid. No free air. Ventral Wall: No hernias. Abdominal Nodes: No retroperitoneal or mesenteric adenopathy by size criteria. Vessels: Aorta and inferior vena cava are normal in size. Retro aortic left renal vein. PELVIS: Pelvic Organs: Moderate prostatomegaly. Bladder: Normal wall thickness. Pelvic Nodes: No enlarged lymph nodes. Miscellaneous: No hernias are seen. Bones: Unremarkable. IMPRESSION: 1. Persistent and slightly worsened proximal sigmoid diverticulitis without evidence of perforation or abscess formation. 2. No other acute changes. Dictated by: Rosa Gloria M.D. on 08/20/2023 at 22:05 Approved by: Rosa Gloria M.D. on 08/20/2023 at 22:12
[2023-08-20 22:06] VITALS: PULSE 83; O2SAT 94
[2023-08-20 22:07] VITALS: BP 155/88; PULSE 83; O2SAT 95
[2023-08-20 22:34] VITALS: BP 150/83; PULSE 94; RESP 18; TEMP 36.6; O2SAT 94
[2023-08-20] MEDS: metroNIDAZOLE 500 MG TABLET PO (22:54)
[2023-08-20] MEDS: CIPROFLOXACIN 250 MG TABLET 500 MG PO (22:54)
== END 2023-08-20 23:00 | disposition home or self-care (01) ==
PROVIDERS: Emergency Provider Emergency Medicine; PCP Nurse Practitioner
DX: K57.92 Diverticulitis of intestine, part unspecified, without perforation or abscess without bleeding (principal)
CPT/HCPCS: 36415; 74022; 74177; 80053; 81003; 83605; 83690; 85025; 96361; 96374; 96375; 99284; J1170; J2405; Q9967

== ENCOUNTER 2023-08-29 12:46 | Inpatient (IN) | payer MEDICARE, OTHER, SELFPAY ==
[2023-08-29] VITALS (7 sets, daily range): BP systolic 117–158; BP diastolic 76–87; PULSE 71–88; RESP 16–18; TEMP 36.6–36.7; O2SAT 95–98; BMI 27.0
--- NOTE | 2023-08-29 14:11 | PC.NURSE ---
pt ambulatory to BR in nad, urine cup provided
--- NOTE | 2023-08-29 14:43 | DI.CT.S_ITS ---
PROCEDURE: CT ABDOMEN PELVIS W CON INDICATIONS: currently treated for diverticulitis, worsening pain TECHNIQUE: After the administration of IV contrast, axial sections were acquired from the lung bases to the pubic symphysis. Coronal and sagittal reformats were performed. For radiation dose reduction, the following was used: automated exposure control, adjustment of mA and/or kV according to patient size. COMPARISON: [facility], CT, CT ABDOMEN PELVIS W CON, 08/20/2023, 21:14. FINDINGS: Image quality: Excellent. Lung bases: Unremarkable. Heart: No significant findings. ABDOMEN: Liver: Hepatic steatosis. Subcentimeter focus of hepatic low-attenuation is unchanged likely small cyst. Gallbladder: Unremarkable. Biliary ducts: Unremarkable. Pancreas: Unremarkable. Spleen: Unremarkable. Adrenal Glands: Unremarkable. Kidneys and Ureters: Low-attenuation focus is present within the left kidney likely simple cysts. Retroaortic left renal vein is incidentally noted. Stomach and Bowel: Stomach, small bowel loops, and colon are nonobstructive. Colonic diverticula are present. There is inflammatory change in thickening within the distal descending colon extending to the sigmoid colon. No abscess. No perforation. Peritoneum: No abnormal intraperitoneal fluid. No free air. Ventral Wall: No hernia. Abdominal Nodes: No retroperitoneal or mesenteric adenopathy by size criteria. Vessels: Aorta and inferior vena cava are normal in size. PELVIS: Pelvic Organs: Unremarkable. Bladder: Unremarkable. Pelvic Nodes: No enlarged lymph nodes. Miscellaneous: No inguinal hernias are seen. Bones: Unremarkable. IMPRESSION: Descending and sigmoid colitis secondary to diverticulitis. No evidence of abscess. Dictated by: Angela Wu M.D. on 08/29/2023 at 16:05 Approved by: Angela Wu M.D. on 08/29/2023 at 16:06
--- NOTE | 2023-08-29 14:45 | ED.ABDPAIN ---
HPI - Abdominal Pain <Camilla De La Rosa PA-C - Last Filed: 08/29/23 17:32> General Chief Complaint: Abdominal Pain Stated Complaint: diverticulitus T-28 Time Seen by Provider: 08/29/23 14:30 Source: patient Mode of arrival: Ambulatory History of Present Illness HPI narrative: Patient is a 59-year-old male seen in the emergency room on 08/14/2023 with abdominal pain and diagnosed by CT and labs with diverticulitis, started on Augmentin. He came back to the ER on August 20 due to persistent pain. His CT did not show any abscess or perforation but he still had a leukocytosis, was started on Cipro and Flagyl. He reports initially feeling better but over the past 2 days has felt much worse, with left lower quadrant pain that comes in waves and is quite severe. He denies nausea or vomiting but has minimal appetite, has not been drinking very much water, is having soft stools nearly daily. He denies fever or chills. He has been taking his antibiotics as prescribed. He has been focusing on small meals with foods such as toast, eggs, applesauce and Jell-O. Related Data Home Medications Medication Instructions Recorded Confirmed lisinopril 5 mg tablet 5 mg PO BEDTIME ##0 01/30/11 09/10/23 metoprolol tartrate 50 mg tablet 50 mg PO BID ##0 01/30/11 09/10/23 aspirin 81 mg tablet,delayed 81 mg PO DAILY ##0 12/30/17 09/10/23 release rosuvastatin 40 mg tablet 40 mg PO DAILY 08/30/23 09/10/23 omeprazole 20 mg capsule,delayed 20 mg PO QPM 09/10/23 09/10/23 release Previous Rx's Medication Instructions Recorded ondansetron 4 mg disintegrating 4 mg PO TID-QID PRN nausea and 08/14/23 tablet vomiting #10 tabs ciprofloxacin HCl 750 mg tablet 750 mg PO BID #20 tabs 08/31/23 metronidazole 500 mg tablet 500 mg PO TID #30 tabs 08/31/23 metronidazole 500 mg tablet 1,000 mg (2 x 500 mg) PO .COMPLEX 09/05/23 #4 tabs oxycodone 5 mg tablet 5 mg PO Q8H PRN pain #20 tabs 09/11/23 Allergies Allergy/AdvReac Type Severity Reaction Status Date / Time No Known Drug Allergies Allergy Unverified 09/05/23 14:28 Review of Systems <Camilla De La Rosa PA-C - Last Filed: 08/29/23 17:32> Review of Systems ROS Unobtainable: All systems reviewed & are unremarkable except as noted in HPI and below Patient History <Camilla De La Rosa PA-C - Last Filed: 08/29/23 17:32> Medical History (Updated 09/10/23 @ 12:08 by Ana Lilia Crocker RN) COPD (chronic obstructive pulmonary disease) H/O ETOH abuse Inferior SC (2010) GERD (gastroesophageal reflux disease) HLD (hyperlipidemia) Coronary artery disease HTN (hypertension) Surgical History (Updated 09/10/23 @ 12:08 by Ana Lilia Crocker RN) H/O vasectomy S/P UPPP (uvulopalatopharyngoplasty) (~1993) H/O heart artery stent (2010) Family History Father Heart disease Social History marital status: household members: spouse lives independently: Yes occupational status: previously employed Smoking Status: Current every day smoker alcohol intake: former substance use type: does not use Smoking Status: Current every day smoker tobacco type: cigarettes Substance Use Type: does not use Exam <Camilla De La Rosa PA-C - Last Filed: 08/29/23 17:32> Narrative Exam Narrative: GENERAL: 67 year old patient appears stated age. Well-developed patient, in mild distress. NEURO: AOx3. HEAD: Atraumatic. Normocephalic. EYES: Pupils equal round and reactive. Extraocular motions intact. No scleral icterus. No injection or drainage. ENT: Nose without bleeding or purulent drainage. Airway patent. NECK: Trachea midline. Non tender CARDIOVASCULAR: Regular rate and rhythm without murmurs, gallops, or rubs. RESPIRATORY: Clear to auscultation. Breath sounds equal bilaterally. No wheezes, rales, or rhonchi. GASTROINTESTINAL: Active bowel sounds in 4 quadrants. Abdomen soft, severe tenderness to light palpation of left lower quadrant, mild left upper quadrant tenderness. SKIN: No rash or erythema of visible areas Initial Vital Signs Initial Vital Signs: Vital Signs Temperature 98 F 08/29/23 13:01 Pulse Rate 71 08/29/23 13:01 Respiratory Rate 18 08/29/23 13:01 Blood Pressure 158/81 H 08/29/23 13:01 Pulse Oximetry 97 08/29/23 13:01 Oxygen Delivery Method Room Air 08/29/23 13:01 <Fahad Morales MD - Last Filed: 09/16/23 07:09> Initial Vital Signs Initial Vital Signs: Vital Signs Temperature 98 F 08/29/23 13:01 Pulse Rate 71 08/29/23 13:01 Respiratory Rate 18 08/29/23 13:01 Blood Pressure 158/81 H 08/29/23 13:01 Pulse Oximetry 97 08/29/23 13:01 Oxygen Delivery Method Room Air 08/29/23 13:01 Course <Camilla De La Rosa PA-C - Last Filed: 08/29/23 17:32> Orders Ordered: Discontinued Medications Acetaminophen (Acetaminophen 325 Mg Tablet) 650 mg PO Q6H PRN PRN Reason: Fever/Mild Pain (1-3) Last Admin: 08/30/23 14:55 Dose: 650 mg Documented By: CORTES Enoxaparin Sodium (Enoxaparin 40 Mg/0.4 Ml Syringe) 40 mg SUBCUT DAILY [facility] Last Admin: 08/31/23 08:21 Dose: Not Given Documented By: Admin: 08/30/23 10:44 Dose: Not Given Documented By: CORTES Hydromorphone HCl (Hydromorphone 0.5 Mg Inj) 0.5 mg IV NOW ONE Stop: 08/29/23 14:44 Last Admin: 08/29/23 14:53 Dose: 0.5 mg Documented By: ELI Hydromorphone HCl (Hydromorphone 0.5 Mg Inj) 0.5 mg IV Q2H PRN PRN Reason: Pain, Severe (7-10) Sodium Chloride (Normal Saline 0.9%) 1,000 mls @ 1,000 mls/hr IV BOLUS PRN PRN Reason: Fluid replacement Last Infusion: 08/29/23 16:02 Dose: Infused Documented By: Admin: 08/29/23 14:54 Dose: 1,000 mls/hr Documented By: ELI Piperacillin Sod/Tazobactam (Sod 4.5 gm/ Sodium Chloride) 100 mls @ 200 mls/hr IV NOW ONE Stop: 08/29/23 17:20 Last Infusion: 08/29/23 18:20 Dose: Infused Documented By: Admin: 08/29/23 17:50 Dose: 200 mls/hr Documented By: BRYANNA Dextrose/Sodium Chloride (Dextrose 5%-0.45% Ns) 1,000 mls @ 100 mls/hr IV CONT [facility] Last Infusion: 08/30/23 12:30 Dose: 0 mls/hr Documented By: Admin: 08/30/23 07:33 Dose: 100 mls/hr Documented By: Infusion: 08/30/23 07:33 Dose: Infused Documented By: Admin: 08/29/23 21:50 Dose: 100 mls/hr Documented By: Piperacillin Sod/Tazobactam (Sod 3.375 gm/ Sodium Chloride) 100 mls @ 25 mls/hr IV Q8H [facility] Last Admin: 08/31/23 05:59 Dose: 25 mls/hr Documented By: Infusion: 08/31/23 02:02 Dose: Infused Documented By: Admin: 08/30/23 21:51 Dose: 25 mls/hr Documented By: Infusion: 08/30/23 18:40 Dose: Infused Documented By: Admin: 08/30/23 14:40 Dose: 25 mls/hr Documented By: Infusion: 08/30/23 10:02 Dose: Infused Documented By: Admin: 08/30/23 05:29 Dose: 25 mls/hr Documented By: Infusion: 08/30/23 01:57 Dose: Infused Documented By: Admin: 08/29/23 21:57 Dose: 25 mls/hr Documented By: SR Ibuprofen (Ibuprofen 600 Mg Tablet) 600 mg PO Q6H PRN PRN Reason: Fever/Mild Pain (1-3) Naloxone HCl (Naloxone 0.4 Mg/Ml Vial) 0.2 mg IV Q2MIN PRN PRN Reason: Opiate Reversal Ondansetron HCl (Ondansetron 4 Mg Odt) 4 mg PO NOW PRN PRN Reason: Nausea And Vomiting Ondansetron HCl (Ondansetron 4 Mg/2 Ml Inj) 4 mg IV NOW PRN PRN Reason: Nausea And Vomiting Ondansetron HCl (Ondansetron 4 Mg/2 Ml Inj) 4 mg IV NOW ONE Stop: 08/29/23 14:44 Last Admin: 08/29/23 16:01 Dose: Not Given Documented By: BRYANNA Ondansetron HCl (Ondansetron 4 Mg/2 Ml Inj) 4 mg IV Q8HR PRN PRN Reason: Nausea And Vomiting Oxycodone HCl (Oxycodone Ir 5 Mg Tablet) 5 mg PO Q3H PRN PRN Reason: Pain, Moderate (4-6) Last Admin: 08/30/23 14:55 Dose: 5 mg Documented By: CORTES Sodium Chloride (Sodium Chloride 0.9% Flush) 10 ml IV PRN PRN PRN Reason: Flush Last Admin: 08/31/23 05:59 Dose: 10 ml Documented By: Admin: 08/30/23 21:51 Dose: 10 ml Documented By: FLORIDALMA Sodium Chloride (Sodium Chloride 0.9% Flush) 10 ml IV BID [facility] Last Admin: 08/31/23 08:21 Dose: 10 ml Documented By: MARY Vital Signs Vital signs: Vital Signs - 8 hr 08/29/23 13:01 08/29/23 16:00 Temperature 98 F Pulse Rate 71 74 Respiratory Rate 18 16 Blood Pressure 158/81 H 125/80 Pulse Oximetry 97 97 Oxygen Delivery Method Room Air Room Air <Fahad Morales MD - Last Filed: 09/16/23 07:09> Orders Ordered: Discontinued Medications Acetaminophen (Acetaminophen 325 Mg Tablet) 650 mg PO Q6H PRN PRN Reason: Fever/Mild Pain (1-3) Last Admin: 08/30/23 14:55 Dose: 650 mg Documented By: CORTES Enoxaparin Sodium (Enoxaparin 40 Mg/0.4 Ml Syringe) 40 mg SUBCUT DAILY [facility] Last Admin: 08/31/23 08:21 Dose: Not Given Documented By: Admin: 08/30/23 10:44 Dose: Not Given Documented By: CORTES Hydromorphone HCl (Hydromorphone 0.5 Mg Inj) 0.5 mg IV NOW ONE Stop: 08/29/23 14:44 Last Admin: 08/29/23 14:53 Dose: 0.5 mg Documented By: ELI Hydromorphone HCl (Hydromorphone 0.5 Mg Inj) 0.5 mg IV Q2H PRN PRN Reason: Pain, Severe (7-10) Sodium Chloride (Normal Saline 0.9%) 1,000 mls @ 1,000 mls/hr IV BOLUS PRN PRN Reason: Fluid replacement Last Infusion: 08/29/23 16:02 Dose: Infused Documented By: Admin: 08/29/23 14:54 Dose: 1,000 mls/hr Documented By: ELI Piperacillin Sod/Tazobactam (Sod 4.5 gm/ Sodium Chloride) 100 mls @ 200 mls/hr IV NOW ONE Stop: 08/29/23 17:20 Last Infusion: 08/29/23 18:20 Dose: Infused Documented By: Admin: 08/29/23 17:50 Dose: 200 mls/hr Documented By: BRYANNA Dextrose/Sodium Chloride (Dextrose 5%-0.45% Ns) 1,000 mls @ 100 mls/hr IV CONT [facility] Last Infusion: 08/30/23 12:30 Dose: 0 mls/hr Documented By: Admin: 08/30/23 07:33 Dose: 100 mls/hr Documented By: Infusion: 08/30/23 07:33 Dose: Infused Documented By: Admin: 08/29/23 21:50 Dose: 100 mls/hr Documented By: Piperacillin Sod/Tazobactam (Sod 3.375 gm/ Sodium Chloride) 100 mls @ 25 mls/hr IV Q8H [facility] Last Admin: 08/31/23 05:59 Dose: 25 mls/hr Documented By: Infusion: 08/31/23 02:02 Dose: Infused Documented By: Admin: 08/30/23 21:51 Dose: 25 mls/hr Documented By: Infusion: 08/30/23 18:40 Dose: Infused Documented By: Admin: 08/30/23 14:40 Dose: 25 mls/hr Documented By: Infusion: 08/30/23 10:02 Dose: Infused Documented By: Admin: 08/30/23 05:29 Dose: 25 mls/hr Documented By: Infusion: 08/30/23 01:57 Dose: Infused Documented By: Admin: 08/29/23 21:57 Dose: 25 mls/hr Documented By: Ibuprofen (Ibuprofen 600 Mg Tablet) 600 mg PO Q6H PRN PRN Reason: Fever/Mild Pain (1-3) Naloxone HCl (Naloxone 0.4 Mg/Ml Vial) 0.2 mg IV Q2MIN PRN PRN Reason: Opiate Reversal Ondansetron HCl (Ondansetron 4 Mg Odt) 4 mg PO NOW PRN PRN Reason: Nausea And Vomiting Ondansetron HCl (Ondansetron 4 Mg/2 Ml Inj) 4 mg IV NOW PRN PRN Reason: Nausea And Vomiting Ondansetron HCl (Ondansetron 4 Mg/2 Ml Inj) 4 mg IV NOW ONE Stop: 08/29/23 14:44 Last Admin: 08/29/23 16:01 Dose: Not Given Documented By: BRYANNA Ondansetron HCl (Ondansetron 4 Mg/2 Ml Inj) 4 mg IV Q8HR PRN PRN Reason: Nausea And Vomiting Oxycodone HCl (Oxycodone Ir 5 Mg Tablet) 5 mg PO Q3H PRN PRN Reason: Pain, Moderate (4-6) Last Admin: 08/30/23 14:55 Dose: 5 mg Documented By: CORTES Sodium Chloride (Sodium Chloride 0.9% Flush) 10 ml IV PRN PRN PRN Reason: Flush Last Admin: 08/31/23 05:59 Dose: 10 ml Documented By: Admin: 08/30/23 21:51 Dose: 10 ml Documented By: FLORIDALMA Sodium Chloride (Sodium Chloride 0.9% Flush) 10 ml IV BID [facility] Last Admin: 08/31/23 08:21 Dose: 10 ml Documented By: MARY Vital Signs Vital signs: Vital Signs - 8 hr 08/29/23 13:01 08/29/23 16:00 Temperature 98 F Pulse Rate 71 74 Respiratory Rate 18 16 Blood Pressure 158/81 H 125/80 Pulse Oximetry 97 97 Oxygen Delivery Method Room Air Room Air MDM - Abdominal Pain <Camilla De La Rosa PA-C - Last Filed: 08/29/23 17:32> Lab Data 08/31/23 05:10 08/31/23 05:10 Labs: Lab Results 08/29/23 08/29/23 08/29/23 Range/Units 14:15 14:22 14:23 WBC 11.7 H (4.5-11.0) X10^3/uL RBC 4.79 (4.5-5.9) X10^6/uL Hgb 14.5 (13.5-17.5) g/dL Hct 41.9 (41-53) % MCV 87.5 (80-100) fL MCH 30.3 (26-34) PG MCHC 34.7 (30-36) % RDW 13.2 (11.6-14.8) % Plt Count 270 (150-400) X10^3/uL Neut % (Auto) 80.4 H (50-75) % Lymph % (Auto) 10.3 L (25-40) % [place] % (Auto) 7.4 (3-14) % Eos % (Auto) 1.2 L (2-4) % Baso % (Auto) 0.7 (0-2) % Neut # (Auto) 9400 H (9628-4956) /uL Lymph # (Auto) 1200 (6763-2349) /uL [place] # (Auto) 900 (0-900) /uL Eos # (Auto) 100 (0-450) /uL Baso # (Auto) 100 (0-100) /uL Sodium 129 L (137-145) mmol/L Potassium 4.0 (3.4-5.1) mmol/L Chloride 90 L (98-107) mmol/L Carbon Dioxide 27 (22-32) mmol/L BUN 11 (9-20) mg/dL Creatinine 1.13 (0.66-1.25) mg/dL Estimated GFR > 60 (>60) mL/min BUN/Creatinine Ratio 9.7 (6-22) Glucose 102 (80-110) mg/dL Calcium 9.7 (8.4-10.2) mg/dL Total Bilirubin 0.6 (0.2-1.3) mg/dL AST 46 (17-59) IU/L ALT 50 H (<50) IU/L Alkaline Phosphatase 52 (38-126) U/L Total Protein 7.6 (6.3-8.2) g/dL Albumin 4.6 (3.5-5.0) g/dL Globulin 3.0 (1.7-4.1) g/dL Albumin/Globulin Ratio 1.5 (1.0-2.8) Lipase 82 (23-300) U/L Urine Color Yellow Urine Appearance Clear Urine pH 6.5 (4.5-8.0) Ur Specific [place] 1.025 (1.000-1.035) Urine Protein 1+ H (Negative) Urine Glucose (UA) Negative (Negative) g/dL Urine Ketones Trace H (NEGATIVE) Urine Occult Blood Negative (Negative) Urine Nitrate Positive H (Negative) Urine Bilirubin 1+ H (NEGATIVE) Ur Bilirubin Confirm Negative (Negative) Urine Urobilinogen 1.0 (0.2) E.U./dL Ur Leukocyte Esterase Trace H (NEGATIVE) Urine RBC 0-1/hpf (0-5/HPF) Urine WBC 1-5/hpf (0-5/HPF) Ur Squamous Epith Cells 1-5 /hpf D (0-5/HPF) Urine Bacteria Occasional (0-1) (None) Hyaline Casts 0-1/lpf (None) Urine Mucus 2+ H (Negative) Ur Culture Indicated? Specimen cultured Imaging Data CT scan - abdomen/pelvis: Radiologist's Impression: PROCEDURE: CT ABDOMEN PELVIS W CON INDICATIONS: currently treated for diverticulitis, worsening pain TECHNIQUE: After the administration of IV contrast, axial sections were acquired from the lung bases to the pubic symphysis. Coronal and sagittal reformats were performed. For radiation dose reduction, the following was used: automated exposure control, adjustment of mA and/or kV according to patient size. COMPARISON: [facility], CT, CT ABDOMEN PELVIS W CON, 08/20/2023, 21:14. FINDINGS: Image quality: Excellent. Lung bases: Unremarkable. Heart: No significant findings. ABDOMEN: Liver: Hepatic steatosis. Subcentimeter focus of hepatic low-attenuation is unchanged likely small cyst. Gallbladder: Unremarkable. Biliary ducts: Unremarkable. Pancreas: Unremarkable. Spleen: Unremarkable. Adrenal Glands: Unremarkable. Kidneys and Ureters: Low-attenuation focus is present within the left kidney likely simple cysts. Retroaortic left renal vein is incidentally noted. Stomach and Bowel: Stomach, small bowel loops, and colon are nonobstructive. Colonic diverticula are present. There is inflammatory change in thickening within the distal descending colon extending to the sigmoid colon. No abscess. No perforation. Peritoneum: No abnormal intraperitoneal fluid. No free air. Ventral Wall: No hernia. Abdominal Nodes: No retroperitoneal or mesenteric adenopathy by size criteria. Vessels: Aorta and inferior vena cava are normal in size. PELVIS: Pelvic Organs: Unremarkable. Bladder: Unremarkable. Pelvic Nodes: No enlarged lymph nodes. Miscellaneous: No inguinal hernias are seen. Bones: Unremarkable. IMPRESSION: Descending and sigmoid colitis secondary to diverticulitis. No evidence of abscess. Dictated by: Angela Wu M.D. on 08/29/2023 at 16:05 Approved by: Angela Wu M.D. on 08/29/2023 at 16:06 [facility] Narrative Medical decision making narrative: Multiple etiologies for patient's symptoms considered including, but not limited to: Complications of diverticulitis such as abscess formation, perforation. Possibly also pancreatitis, cholecystitis or pyelonephritis. CT shows diverticulitis without abscess or perforation. Labs show improving leukocytosis with stable hyponatremia and hypochloremia. UA with some evidence of infection. Patient has been on Cipro, which should cover most urinary organisms. Discussed with Dr. Morales who agrees the patient has failed outpatient therapy and should be admitted. Dr. Juarez consulted at 5:20 p.m. and agrees to admit for IV antibiotics. Zosyn ordered per Dr. Juarez's recommendation. Patient's pain controlled with 0.5 mg hydromorphone while in ER. He also received 1 L normal saline bolus. <Fahad Morales MD - Last Filed: 09/16/23 07:09> Lab Data Labs: Lab Results 08/29/23 08/29/23 08/29/23 Range/Units 14:15 14:22 14:23 WBC 11.7 H (4.5-11.0) X10^3/uL RBC 4.79 (4.5-5.9) X10^6/uL Hgb 14.5 (13.5-17.5) g/dL Hct 41.9 (41-53) % MCV 87.5 (80-100) fL MCH 30.3 (26-34) PG MCHC 34.7 (30-36) % RDW 13.2 (11.6-14.8) % Plt Count 270 (150-400) X10^3/uL Neut % (Auto) 80.4 H (50-75) % Lymph % (Auto) 10.3 L (25-40) % Villalba % (Auto) 7.4 (3-14) % Eos % (Auto) 1.2 L (2-4) % Baso % (Auto) 0.7 (0-2) % Neut # (Auto) 9400 H (8952-2921) /uL Lymph # (Auto) 1200 (7239-5312) /uL [place] # (Auto) 900 (0-900) /uL Eos # (Auto) 100 (0-450) /uL Baso # (Auto) 100 (0-100) /uL Sodium 129 L (137-145) mmol/L Potassium 4.0 (3.4-5.1) mmol/L Chloride 90 L (98-107) mmol/L Carbon Dioxide 27 (22-32) mmol/L BUN 11 (9-20) mg/dL Creatinine 1.13 (0.66-1.25) mg/dL Estimated GFR > 60 (>60) mL/min BUN/Creatinine Ratio 9.7 (6-22) Glucose 102 (80-110) mg/dL Calcium 9.7 (8.4-10.2) mg/dL Total Bilirubin 0.6 (0.2-1.3) mg/dL AST 46 (17-59) IU/L ALT 50 H (<50) IU/L Alkaline Phosphatase 52 (38-126) U/L Total Protein 7.6 (6.3-8.2) g/dL Albumin 4.6 (3.5-5.0) g/dL Globulin 3.0 (1.7-4.1) g/dL Albumin/Globulin Ratio 1.5 (1.0-2.8) Lipase 82 (23-300) U/L Urine Color Yellow Urine Appearance Clear Urine pH 6.5 (4.5-8.0) Ur Specific [place] 1.025 (1.000-1.035) Urine Protein 1+ H (Negative) Urine Glucose (UA) Negative (Negative) g/dL Urine Ketones Trace H (NEGATIVE) Urine Occult Blood Negative (Negative) Urine Nitrate Positive H (Negative) Urine Bilirubin 1+ H (NEGATIVE) Ur Bilirubin Confirm Negative (Negative) Urine Urobilinogen 1.0 (0.2) E.U./dL Ur Leukocyte Esterase Trace H (NEGATIVE) Urine RBC 0-1/hpf (0-5/HPF) Urine WBC 1-5/hpf (0-5/HPF) Ur Squamous Epith Cells 1-5 /hpf D (0-5/HPF) Urine Bacteria Occasional (0-1) (None) Hyaline Casts 0-1/lpf (None) Urine Mucus 2+ H (Negative) Ur Culture Indicated? Specimen cultured Discharge Plan Departure Patient Disposition: Admitted as Observation Clinical Impression: Diverticulitis Admit Date/Time: 08/29/23 17:22 Admit Provider: Abdon Juarez ED Sign-out <Fahad Morales MD - Last Filed: 09/16/23 07:09> Cosign ED Attending Cosignature Attestation: I was immediately available in the department for consultation. ?This documentation has been reviewed and I agree with assessment and plan. Supervised by Fahad Morales MD
[2023-08-29] MEDS: HYDROMORPHONE 0.5 MG INJ IV (14:53)
[2023-08-29 14:54] LABS: Appearance Urine UA CLEAR; Bilirubin Urine UA 1+ (NEGATIVE); Color Urine UA YELLOW; Glucose Urine UA NEGATIVE (Negative); Ketones Urine UA TRACE (NEGATIVE); Leukocyte Esterase Urine UA TRACE (NEGATIVE); Nitrite Urine UA POSITIVE (Negative); Occult Blood Urine UA NEGATIVE (Negative); Protein Urine UA 1+ (Negative); Specific Gravity Urine UA 1.025 (1.000-1.035); pH Urine UA 6.5 (4.5-8.0)
[2023-08-29] MEDS: SODIUM CHLORIDE 0.9% 1,000 ML 1000 ML IV (14:54)
[2023-08-29 14:59] LABS: Add Manual Diff / Slide Review NO; Basophils Absolute Auto 100 /uL (0-100); Basophils Percent Auto 0.7 % (0-2); Eosinophils Absolute Auto 100 /uL (0-450); Eosinophils Percent Auto 1.2 % (2-4); Hematocrit 41.9 % (41-53); Hemoglobin 14.5 g/dL (13.5-17.5); Lymphocytes Absolute Auto 1200 /uL (1100-4500); Lymphocytes Percent Auto 10.3 % (25-40); Mean Corpuscular HGB Conc 34.7 % (30-36); Mean Corpuscular Hemoglobin 30.3 PG (26-34); Mean Corpuscular Volume 87.5 fL (80-100); Monocytes Absolute Auto 900 /uL (0-900); Monocytes Percent Auto 7.4 % (3-14); Neutrophils Absolute Auto 9400 /uL (1500-7000); Neutrophils Percent Auto 80.4 % (50-75); Platelet Count 270 X10^3/uL (150-400); Red Blood Cell Count 4.79 X10^6/uL (4.5-5.9); Red Cell Distribution Width 13.2 % (11.6-14.8); White Blood Cell Count 11.7 X10^3/uL (4.5-11.0)
[2023-08-29 15:06] LABS: Bacteria Urine Occasional (0-1); Culture Indicated Urine Specimen Cultured; Hyaline Casts Urine 0-1/LPF; Ictotest Urine Negative (Negative); Mucus Urine 2+ (Negative); RBC Urine 0-1/HPF (0-5/HPF); Squamous Epithelial Cell Urine 1-5 /HPF (0-5/HPF); WBC Urine 1-5/HPF (0-5/HPF)
[2023-08-29 15:07] LABS: Alanine Aminotransferase 50 IU/L (<50); Albumin 4.6 g/dL (3.5-5.0); Albumin Globulin Ratio 1.5 (1.0-2.8); Alkaline Phosphatase 52 U/L (38-126); Aspartate Aminotransferase 46 IU/L (17-59); BUN Creatinine Ratio 9.7 (6-22); Bilirubin Total 0.6 mg/dL (0.2-1.3); Blood Urea Nitrogen 11 mg/dL (9-20); Calcium 9.7 mg/dL (8.4-10.2); Carbon Dioxide 27 mmol/L (22-32); Chloride 90 mmol/L (98-107); Estimated Glomerular Filt Rate > 60 mL/min (>60); Glucose 102 mg/dL (80-110); Lipase 82 U/L (23-300); Sodium 129 mmol/L (137-145); Total Protein 7.6 g/dL (6.3-8.2)
[2023-08-29 15:30] LABS: HEMOLYSIS 16 (0-50)
[2023-08-29] MEDS: PIPERACILLIN/TAZO 4.5 GM in SODIUM CHLORIDE 0.9% 100 ML IV (17:50)
--- NOTE | 2023-08-29 18:02 | PC.NURSE ---
pt requesting to eat, okay per provider; ER snacks provided.
--- NOTE | 2023-08-29 19:36 | PC.NURSE ---
report to sachin govea
[2023-08-29] MEDS: DEXTROSE 5%-0.45% NS 1,000 ML 100 ML IV (21:50)
[2023-08-29] MEDS: PIPERACILLIN/TAZO 3.375 GM in SODIUM CHLORIDE 0.9% 100 ML IV (21:57)
[2023-08-30] VITALS (12 sets, daily range): BP systolic 123–140; BP diastolic 73–84; PULSE 70–80; RESP 16–19; TEMP 36.1–37.2; O2SAT 96–99
[2023-08-30] MEDS: PIPERACILLIN/TAZO 3.375 GM in SODIUM CHLORIDE 0.9% 100 ML IV ×3 (05:29→21:51)
[2023-08-30 05:56] LABS: Add Manual Diff / Slide Review NO; Basophils Absolute Auto 100 /uL (0-100); Basophils Percent Auto 0.8 % (0-2); Eosinophils Absolute Auto 200 /uL (0-450); Eosinophils Percent Auto 2.5 % (2-4); Hematocrit 39.1 % (41-53); Hemoglobin 13.7 g/dL (13.5-17.5); Lymphocytes Absolute Auto 1600 /uL (1100-4500); Lymphocytes Percent Auto 17.4 % (25-40); Mean Corpuscular HGB Conc 35.1 % (30-36); Mean Corpuscular Hemoglobin 30.4 PG (26-34); Mean Corpuscular Volume 86.8 fL (80-100); Monocytes Absolute Auto 800 /uL (0-900); Monocytes Percent Auto 8.3 % (3-14); Neutrophils Absolute Auto 6500 /uL (1500-7000); Platelet Count 239 X10^3/uL (150-400); Red Cell Distribution Width 13.1 % (11.6-14.8); White Blood Cell Count 9.2 X10^3/uL (4.5-11.0)
[2023-08-30 06:01] LABS: BUN Creatinine Ratio 8.5 (6-22); Blood Urea Nitrogen 9 mg/dL (9-20); Carbon Dioxide 25 mmol/L (22-32); Chloride 98 mmol/L (98-107); Estimated Glomerular Filt Rate > 60 mL/min (>60); Glucose 119 mg/dL (80-110); HEMOLYSIS < 15 (0-50); Sodium 129 mmol/L (137-145)
[2023-08-30] MEDS: DEXTROSE 5%-0.45% NS 1,000 ML 100 ML IV (07:33)
--- NOTE | 2023-08-30 07:48 | P.HP_ITS ---
History of Present Illness History of Present Illness Date Patient Seen: 08/30/23 Chief complaint: diverticulitus T-28 Narrative: 67-year-old man PMH diverticulitis and active tobacco use presents to the [facility] Emergency Department August 29 2023 with complaint of abdominal pain. At admission WBC 12, afebrile vital signs within normal limits. CT abdomen pelvis demonstrates diverticulitis of the sigmoid colon without free air or abscess. He was seen in the emergency department here August [address] findings started antibiotic therapy and discharge home then re- presented to the emergency department August 20 antibiotics were changed and again sent home. He reports that over the past month he has waxing and waning symptoms. No blood per rectum unintentional weight loss or family history of intestinal malignancy. He had a previous colonoscopy date unknown which demonstrated diverticular disease. [facility] Social History household members: spouse Smoking Status: Current every day smoker alcohol intake: current Meds Home Medications and Allergies Home Medications Medication Instructions Recorded Confirmed Type LISINOPRIL (Zestril / Prinivil) 5 mg PO QAM ##0 01/30/11 08/30/23 History Metoprolol Tartrate (Lopressor) 50 mg PO BID ##0 01/30/11 08/29/23 History aspirin 81 mg tablet,delayed 81 mg PO DAILY ##0 12/30/17 08/29/23 History release ciprofloxacin HCl 500 mg tablet 500 mg PO BID #14 tabs 12/30/17 08/29/23 Rx (Cipro) ondansetron 4 mg disintegrating 4 mg PO TID-QID PRN nausea and 08/14/23 08/29/23 Rx tablet vomiting #10 tabs metronidazole 500 mg tablet 500 mg PO Q8H #30 tabs 08/20/23 08/29/23 Rx rosuvastatin 40 mg tablet 40 mg PO DAILY 08/30/23 08/30/23 History Allergies Allergy/AdvReac Type Severity Reaction Status Date / Time No Known Drug Allergies Allergy Unverified 08/11/23 13:48 Exam Vital Signs (past 8 hours): - 08/30/23 01:00 08/30/23 02:00 08/30/23 05:00 Temperature 98.0 F 97.2 F L Pulse Rate 70 80 Respiratory Rate 16 17 Blood Pressure 140/76 125/81 Pulse Oximetry 98 98 96 Oxygen Delivery Method Room Air Oxygen Flow Rate 0 0 08/30/23 06:00 Temperature Pulse Rate Respiratory Rate Blood Pressure Pulse Oximetry 96 Oxygen Delivery Method Room Air Oxygen Flow Rate Oxygen Delivery Method Room Air Oxygen Flow Rate 0 Narrative Exam Narrative: GENERAL: A well nourished, well developed adult, resting comfortably, in no acute distress. HEENT: Normocephalic, atraumatic. No scleral icterus CHEST: Rising symmetrically. No audible wheezes CARDIOVASCULAR: Warm and well perfused. Regular rate ABDOMEN: Tender left lower quadrant no peritonitis EXTREMITIES: Normal tone and without edema. NEUROLOGIC: Moving all extremities spontaneously. No gross motor deficits. Objective Labs 08/30/23 05:28 08/30/23 05:28 Labs: Laboratory Results - last 24 hr 08/29/23 08/29/23 08/29/23 14:15 14:22 14:23 WBC 11.7 H RBC 4.79 Hgb 14.5 Hct 41.9 MCV 87.5 MCH 30.3 MCHC 34.7 RDW 13.2 Plt Count 270 Neut % (Auto) 80.4 H Lymph % (Auto) 10.3 L [place] % (Auto) 7.4 Eos % (Auto) 1.2 L Baso % (Auto) 0.7 Neut # (Auto) 9400 H Lymph # (Auto) 1200 [place] # (Auto) 900 Eos # (Auto) 100 Baso # (Auto) 100 Sodium 129 L Potassium 4.0 Chloride 90 L Carbon Dioxide 27 BUN 11 Creatinine 1.13 Estimated GFR > 60 BUN/Creatinine Ratio 9.7 Glucose 102 Calcium 9.7 Total Bilirubin 0.6 AST 46 ALT 50 H Alkaline Phosphatase 52 Total Protein 7.6 Albumin 4.6 Globulin 3.0 Albumin/Globulin Ratio 1.5 Lipase 82 Urine Color Yellow Urine Appearance Clear Urine pH 6.5 Ur Specific [place] 1.025 Urine Protein 1+ H Urine Glucose (UA) Negative Urine Ketones Trace H Urine Occult Blood Negative Urine Nitrate Positive H Urine Bilirubin 1+ H Ur Bilirubin Confirm Negative Urine Urobilinogen 1.0 Ur Leukocyte Esterase Trace H Urine RBC 0-1/hpf Urine WBC 1-5/hpf Ur Squamous Epith Cells 1-5 /hpf D Urine Bacteria Occasional (0-1) Hyaline Casts 0-1/lpf Urine Mucus 2+ H Ur Culture Indicated? Specimen cultured 08/30/23 05:28 WBC 9.2 RBC 4.50 Hgb 13.7 Hct 39.1 L MCV 86.8 MCH 30.4 MCHC 35.1 RDW 13.1 Plt Count 239 Neut % (Auto) 71.0 Lymph % (Auto) 17.4 L [place] % (Auto) 8.3 Eos % (Auto) 2.5 Baso % (Auto) 0.8 Neut # (Auto) 6500 Lymph # (Auto) 1600 [place] # (Auto) 800 Eos # (Auto) 200 Baso # (Auto) 100 Sodium 129 L Potassium 4.0 Chloride 98 Carbon Dioxide 25 BUN 9 Creatinine 1.06 Estimated GFR > 60 BUN/Creatinine Ratio 8.5 Glucose 119 H Calcium 9.0 Total Bilirubin AST ALT Alkaline Phosphatase Total Protein Albumin Globulin Albumin/Globulin Ratio Lipase Urine Color Urine Appearance Urine pH Ur Specific [place] Urine Protein Urine Glucose (UA) Urine Ketones Urine Occult Blood Urine Nitrate Urine Bilirubin Ur Bilirubin Confirm Urine Urobilinogen Ur Leukocyte Esterase Urine RBC Urine WBC Ur Squamous Epith Cells Urine Bacteria Hyaline Casts Urine Mucus Ur Culture Indicated? Assessment & Plan Assessment and plan (1) Diverticulitis: Status: Acute Assessment & Plan narrative: 67-year-old man PMH active tobacco use in diverticular disease who is admitted with recurrent uncomplicated diverticulitis. CT abdomen pelvis personally reviewed demonstrates diverticulitis of the sigmoid colon without free air or abscess. Review of his notes demonstrates seen twice in the emergency department over the past 1 month for ongoing diverticulitis which has not resolved with oral antibiotics. I discussed my recommendations that we admit for IV antibiotic therapy and bowel rest. I explained he has smoldering disease and will likely require sigmoid colectomy for definitive treatment in the near future.. The goal is to convert his acute situation into an elective operation with primary anastomosis as opposed to fecal diversion. His questions have been answered and he is in agreement with this plan -okay for diet -Zosyn -SCDs and prophylactic Lovenox Quality VTE Deep Vein Thrombosis/Pulmonary Embolism Present on Admission: No
[2023-08-30] MEDS: ACETAMINOPHEN 325 MG TABLET 650 MG PO (14:55)
[2023-08-30] MEDS: OXYCODONE IR 5 MG TABLET PO (14:55)
--- NOTE | 2023-08-30 15:45 | CM.DANOTE ---
Patient is a 67 yo male who was admitted on 08/29/23 for Diverticulitis. Pt has [employer] for insurance and his PCP is Jia Orlando. EMR was reviewed. Per MD, pt failed outpt po abx and admitted for IV-Abx and fluids. SW met bedside with pt and explained role and pt confirms he lives in [place] with his spouse and is independent with ADLs at baseline and drives and does not use DME at baseline. Pt is retired but spouse is working but able to assist if needed. Pt denies any hx of HH or SNF and does not anticipate any d/c needs and was hopeful to d/c home today as he really don't like hospitals. Pt confirms spouse can transport home. Plan: SW to follow closely for plan of discharge home when medically stable and any further identified discharge planning needs. NAYA Roberson Discharge Planning/Care Management CM Discharge Assessment Start: 08/30/23 15:44 Freq: Status: Active Protocol: Document 08/30/23 15:44 BF (Rec: 08/30/23 15:45 BF [id number]) Discharge Planning Assessment Assigned Acoustical Logging Engineer NAYA Cha DPOA/Assigned Designee Name spouse Cheri Contact Information [phone] Advance Directives? Yes Advance Directives on File No History Provided By Patient,Medical Record Has Patient been admitted in last 30 No days? Prior Living Arrangements House Household Members spouse Type of transporation used prior to Drives own vehicle admit Independent with ADL's Yes Is patient alert and oriented? Yes Caregiver for Another No Barriers to Discharge No Discharge Plan Home Transportation Arrangement [facility] will transport Referrals Initiated None needed Whiteboard Updated in Patient Room with Yes name and ext. # of Acoustical Logging Engineer Review Status In Process Please Provide Date Initial DC 08/30/23 Assessment Was Performed Next Review Type Continued Stay Review
[2023-08-30] MEDS: SODIUM CHLORIDE 0.9% FLUSH 10 ML IV (21:51)
[2023-08-31 04:00] VITALS: BP 113/89; PULSE 89; RESP 18; TEMP 36; O2SAT 97
[2023-08-31 05:00] VITALS: O2SAT 97
[2023-08-31 05:23] LABS: Add Manual Diff / Slide Review NO; Basophils Absolute Auto 100 /uL (0-100); Basophils Percent Auto 1.3 % (0-2); Eosinophils Absolute Auto 200 /uL (0-450); Eosinophils Percent Auto 3.1 % (2-4); Hematocrit 36.4 % (41-53); Lymphocytes Absolute Auto 1600 /uL (1100-4500); Lymphocytes Percent Auto 21.5 % (25-40); Mean Corpuscular HGB Conc 35.7 % (30-36); Mean Corpuscular Hemoglobin 30.8 PG (26-34); Mean Corpuscular Volume 86.2 fL (80-100); Monocytes Absolute Auto 600 /uL (0-900); Monocytes Percent Auto 7.6 % (3-14); Neutrophils Absolute Auto 5000 /uL (1500-7000); Neutrophils Percent Auto 66.5 % (50-75); Platelet Count 212 X10^3/uL (150-400); Red Blood Cell Count 4.22 X10^6/uL (4.5-5.9); White Blood Cell Count 7.6 X10^3/uL (4.5-11.0)
[2023-08-31 05:27] LABS: BUN Creatinine Ratio 7.5 (6-22); Blood Urea Nitrogen 8 mg/dL (9-20); Calcium 9.1 mg/dL (8.4-10.2); Carbon Dioxide 23 mmol/L (22-32); Chloride 99 mmol/L (98-107); Estimated Glomerular Filt Rate > 60 mL/min (>60); Glucose 95 mg/dL (80-110); HEMOLYSIS < 15 (0-50); Potassium 3.9 mmol/L (3.4-5.1); Sodium 130 mmol/L (137-145)
[2023-08-31] MEDS: PIPERACILLIN/TAZO 3.375 GM in SODIUM CHLORIDE 0.9% 100 ML IV (05:59)
[2023-08-31] MEDS: SODIUM CHLORIDE 0.9% FLUSH 10 ML IV ×2 (05:59→08:21)
[2023-08-31 08:00] VITALS: BP 142/82; PULSE 83; RESP 16; TEMP 36.9; O2SAT 95
[2023-08-31 09:00] VITALS: O2SAT 97
--- NOTE | 2023-08-31 09:39 | PC.NURSE ---
Addendum entered by Clare Gilliland R.N. 08/31/23 11:57: dc paperwork reviewed. meds reviewed. patient escorted to his truck in ED parking lot. left facility in his truck. see dc Original Note: a/o voices needs. ind w/ mobility and ADLs. denies pain/discomfort, appetite is minimum, states he hasnt been eating much lately, so just isnt hungry. anticipate d/c home later today.
--- NOTE | 2023-08-31 10:51 | P.DS_ITS ---
History of Present Illness History of Present Illness Chief complaint: diverticulitus T-28 Narrative: 67-year-old man PMH diverticulitis and active tobacco use presents to the [facility] Emergency Department August 29 2023 with complaint of abdominal pain. At admission WBC 12, afebrile vital signs within normal limits. CT abdomen pelvis demonstrates diverticulitis of the sigmoid colon without free air or abscess. He was seen in the emergency department here August [address] findings started antibiotic therapy and discharge home then re- presented to the emergency department August 20 antibiotics were changed and again sent home. He reports that over the past month he has waxing and waning symptoms. No blood per rectum unintentional weight loss or family history of intestinal malignancy. He had a previous colonoscopy date unknown which demonstrated diverticular disease. Discharge Providers Provider Date of admission: 08/29/23 17:22 Discharge Date: 08/31/23 Primary care physician: AKASH Calixto Discharge provider: Abdon Juarez MD Summary Hospital Course Discharge Diagnosis: Diverticulitis Hospital Course: Mr Burgess was treated for acute uncomplicated diverticulitis with IV antibiotic therapy. He has chronic diverticulitis which has not resolved with oral antibiotic therapy. He significantly improved over the course of his hospitalization and at discharge he is tolerant of a regular diet without abdominal pain fever or leukocytosis. He is discharged home on PO antibiotics with plan to follow up in the general surgery clinic next week. We have discussed that he will likely require a sigmoid colectomy in the near future as he has smolering diverticulitis which is unlikely to ever completely resolve with antibiotic therapy. Exam Vital Signs (past 8 hours): - 08/31/23 04:00 08/31/23 05:00 08/31/23 08:00 Temperature 96.8 F L 98.4 F Pulse Rate 89 83 Respiratory Rate 18 16 Blood Pressure 113/89 142/82 H Pulse Oximetry 97 97 95 Oxygen Delivery Method Room Air Oxygen Flow Rate 0 0 08/31/23 09:00 Temperature Pulse Rate Respiratory Rate Blood Pressure Pulse Oximetry 97 Oxygen Delivery Method Room Air Oxygen Flow Rate Oxygen Delivery Method Room Air Oxygen Flow Rate 0 Narrative Exam Narrative: General adult man alert oriented no acute distress Chest nonlabored respiration Abdomen soft non tender Extremities warm well perfused Objective Labs 08/31/23 05:10 08/31/23 05:10 Labs: Laboratory Results - last 24 hr 08/31/23 05:10 WBC 7.6 RBC 4.22 L Hgb 13.0 L Hct 36.4 L MCV 86.2 MCH 30.8 MCHC 35.7 RDW 13.0 Plt Count 212 Neut % (Auto) 66.5 Lymph % (Auto) 21.5 L [place] % (Auto) 7.6 Eos % (Auto) 3.1 Baso % (Auto) 1.3 Neut # (Auto) 5000 Lymph # (Auto) 1600 [place] # (Auto) 600 Eos # (Auto) 200 Baso # (Auto) 100 Sodium 130 L Potassium 3.9 Chloride 99 Carbon Dioxide 23 BUN 8 L Creatinine 1.06 Estimated GFR > 60 BUN/Creatinine Ratio 7.5 Glucose 95 Calcium 9.1 PFSH Social History household members: spouse Smoking Status: Current every day smoker alcohol intake: current Discharge Plan Discharge Plan Patient Disposition: Home Nursing Discharge Comment: follow up w/ PCP w/in 7-10 days of todays date. follow up w/ surgeon as directed. phone number: [phone] [facility] # contact PCP for questions about medications. return to ER/call 911 if symptoms that brought you to the hospital return. call for fever > 101.9 not relieved by rest/tylenol. call for increased pain not relieved by rest/pain medication. Discharge orders & Medications Prescriptions: New ciprofloxacin HCl 750 mg tablet 750 mg PO BID Qty: 20 0RF metronidazole 500 mg tablet 500 mg PO TID Qty: 30 0RF Continued Metoprolol Tartrate (Lopressor) 50 mg PO BID Qty: 0 LISINOPRIL (Zestril / Prinivil) 5 mg PO QAM Qty: 0 aspirin 81 MG tablet,delayed release (DR/EC) 81 mg PO DAILY Qty: 0 ondansetron 4 mg tablet,disintegrating 4 mg PO TID-QID PRN (Reason: nausea and vomiting) Qty: 10 0RF rosuvastatin 40 mg tablet 40 mg PO DAILY Discontinued ciprofloxacin HCl [Cipro] 500 MG tablet 500 mg PO BID Qty: 14 0RF metronidazole 500 mg tablet 500 mg PO Q8H Qty: 30 0RF Follow up/Referrals: Abdon Juarez MD [Physician] - 1 Week Diet/Activity/Treatments Diet: Diet as Tolerated Skin/Wound/Dressing Care Report to your healthcare provider any signs of infection, such as:: chills, fever and increased pain Visit Report/Discharge Packet Instructions: Diverticulitis (Alternative Therapy), DI for Diverticulitis, How to Prevent Falls Stand Alone Forms: Patient Portal/API, Stroke Signs & Symptoms Discharge Data Primary Care Provider: Jia Orlando VTE Deep Vein Thrombosis/Pulmonary Embolism Present on Admission: No
== END 2023-08-31 11:58 | disposition home or self-care (01) | DRG 392 ==
LOC: ED 14:30 → AC 17:31
PROVIDERS: Emergency Medicine; Admitting Provider Surgery; Emergency Provider Physician Assistant; PCP Nurse Practitioner; Referring Provider Physician Assistant; Visit Provider Surgery
DX: K57.32 Diverticulitis of large intestine without perforation or abscess without bleeding (principal); F17.210 Nicotine dependence, cigarettes, uncomplicated
CPT/HCPCS: 36415; 74177; 80048; 80053; 81001; 83690; 85025; 87086; 93005; 96365; 96375; 99232; 99238; 99284; 99285; J1170; J2543

== ENCOUNTER 2023-09-18 10:01 | Inpatient (IN) | payer MEDICARE, OTHER, SELFPAY ==
[2023-08-29 20:18] VITALS: BMI 27.0
[2023-09-10 10:45] VITALS: BMI 25.1
[2023-09-18] VITALS (14 sets, daily range): BP systolic 108–129; BP diastolic 74–88; PULSE 82–95; RESP 11–18; TEMP 35.9–36.9; O2SAT 93–98; BMI 23.8
--- NOTE | 2023-09-18 | PATH_ITS ---
[facility] Accession Number: [id number] No. of containers..01 Tissue . 01 Material submitted: . sigmoid colon - SIGMOID COLON -STITCHMARKS PROXIMAL END . 01 Diagnosis: Sigmoid Colon, Segmental Resection: Extensive diverticulosis with diverticulitis, pericolorectal abscess, serositis, and serosal fibrous adhesions. No evidence of dysplasia or malignancy. MRV 10/02/2023 1803 Local . 01 Electronically signed: . Kayce Tamez MD, Pathologist NPI- [id number] . 01 Gross description: . The specimen is received in formalin labeled with the patient's name, , and sigmoid colon, stitch mcfarland proximal, consists of an oriented segment of colon with a long suture marking the proximal end, per the requisition, and measuring 10.6 cm in length by 3.0 cm in average diameter with attached yellow to congested adipose extending up to 0.3 cm. The proximal margin is inked blue, the distal margin is inked orange, and the mesenteric margin is inked green. The serosa is mireles and smooth with no puckering identified. The mucosa is mireles and velvety with normal appearing folds, and no polyps or lesions identified. The brandon average 0.5 cm thick with numerous diverticula extending up to 2.4 cm in maximum depth and filled with solidified fecal material. No perforations are grossly identified. Palpation of the adipose reveals six mireles lymph node candidates ranging from 0.3 to 0.6 cm in greatest dimension. . Tongue And Groove Machine Operator sections are submitted as follows: A1-A2: Rep margins en face. A3-A6: Diverticula. A7: Unremarkable mucosa. A8: Six intact lymph node candidates. ([id number]) . Additional sections of diverticula are submitted in cassettes A9-A11. ([id number]) /MRV 10/01/2023 1816 Local . 01 Pathologist provided ICD-10: K57.30 . 01 CPT . 598214 Specimen Comment: A courtesy copy of this report has been sent to [phone] Performed at: 01 [facility] [address] [place] [address] [address] [facility], [place], [place] [id number] MD Sami Mcdonald MD Phone: [phone]
[2023-09-18] MEDS: LACTATED RINGERS 1,000 ML 21 ML IV (10:45)
--- NOTE | 2023-09-18 10:57 | PM.PREOP ---
Pre-operative Note Interval Note History & Physical reviewed/Exam performed by Physician: Yes Changes to H&P: No
[2023-09-18] MEDS: PIPERACILLIN/TAZO 4.5 GM in SODIUM CHLORIDE 0.9% 100 ML IV (11:41)
--- NOTE | 2023-09-18 12:08 | SUR.OPER ---
Lithotomy on padded OR bed. [place] Pad Positioner under torso. Head on pillow, arms padded and tucked at sides. Legs secured in padded yellow fins stirrups.
[2023-09-18] MEDS: BUPIVACAINE 0.25% (PF) 30 ML, EPINEPHrine 0.15 MG INJ (12:53)
[2023-09-18] MEDS: BUPIVACAINE LIPOSOME 266 MG/20 ML VIAL INJ (12:55)
[2023-09-18] MEDS: LACTATED RINGERS 1,000 ML 42 ML IV (13:11)
[2023-09-18] MEDS: OXYCODONE IR 5 MG TABLET PO ×3 (14:38→20:30)
[2023-09-18] MEDS: ONDANSETRON 4 MG/2 ML INJ IV (14:40)
[2023-09-18] MEDS: DEXTROSE 5%-0.45% NS 1,000 ML 100 ML IV (15:08)
--- NOTE | 2023-09-18 16:48 | PT-IP ANOTE ---
PT eval order received. EMR reviewed. checked pt and pt refused PT. stated that he is not ready but agreed to do PT tomorrow. will f/u.
[2023-09-18] MEDS: PANTOPRAZOLE DR 20 MG TABLET PO (17:01)
--- NOTE | 2023-09-18 17:23 | PC.NURSE ---
provider ok with advancing patient to full liquid diet. incisions CDI. no n/v. call light in reach.
--- NOTE | 2023-09-18 17:31 | P.OP_ITS ---
Operative Date/Time/Diagnoses Date of procedure: 09/18/23 Time of procedure: 17:31 Pre-op diagnosis: Recurrent diverticulitis Post-op diagnosis: same Procedure & Clinicians Procedure: Laparoscopic sigmoid colectomy Same procedure as scheduled: Yes Indications: 67-year-old man with 6 weeks of uncomplicated diverticulitis. He has required least 1 hospitalization for antibiotic therapy and nearly 6 weeks of oral antibiotics. Despite these measures symptoms are waxing and waning and given his smoldering disease he is taken to the operating room for a semi elective resection Surgeon: Abdon Juarez Edge Burnisher: Breonna Love Anesthesia Type: General Operative Notes Findings: Chronic inflamed sigmoid colon consistent with smoldering diverticulitis. No abscess. Leak test negative. Left ureter identified. Specimen(s): other (Sigmoid colon. Stitch mcfarland proximal end) Estimated Blood Loss (mL): 50 Procedure in detail: The patient was brought to the operating room and placed supine on the table. Bilateral lower extremity compression devices were applied. General anesthesia was induced and they were intubated with an endotracheal tube. They were placed in the lithotomy position and prepped and draped in sterile fashion. A selby catheter was placed under sterile condition. They received 3.375 g of Zosyn prior to skin incision. Time-out was performed. An infraumbilical 1 cm incision was made, the umbilical stalk was elevated, the fascia was sharply incised and the abdomen was entered atraumatically. Pneumoperitoneum was established. The laparoscope was inserted into the abdomen, inspection was made there was no evidence of injury upon entry. 5 mm ports were placed suprapubic, left lower quadrant and a 12 mm trocar in the right lower quadrant. There were significant adhesions between the the sigmoid colon and the left pelvic sidewall consistent with a history of multiple episodes of diverticulitis. The attachments between the sigmoid colon and the side wall were taken with electrocautery and dissection was carried along the white line of [place] to the splenic flexure. We then turned our attention to the pelvis. The left ureter was identified in proximity to the iliac vessels and confirmed by its vermiculate fashion. The ureter was kept posterior out of harm's way. The sigmoid colon was redundant and its pelvic attachments were divided staying close to the wall of the colon. A small infraumbilical incision was made through the existing laparoscopic port and a wound protector was placed. The sigmoid colon was exteriorized. We chose an area just proximal to the sigmoid colon which was relatively free of diverticular disease soft and pliable. Window within the mesentery was made here and then the bowel was divided with a KIM stapler 75 mm blue load. We continued to divide the mesentery working towards the rectum end-stage close to the wall of the sigmoid colon. When we reached the rectosigmoid junction this area was also relatively free of diverticular disease and the colon was divided here using the TA stapler. Specimen was then passed off the field labeled sigmoid colon stitch mcfarland the proximal end. The rectum was sized and appropriately fit 33 mm Sizer. A 31 mm EEA stapler was selected. The use staple line of the proximal colon was resected and then A 3-0 Prolene suture was pursestrung and a 31 mm EEA anvil was placed. The EEA stapler was advanced through the rectum and its point was deployed under direct visualization through the rectal staple line. Ensuring that the colon mesentery was without twist, the anvil and stapler were mated and the anastomosis was completed without tension. The stapler was removed and inspection of the anastomotic donuts demonstrated 2 intact anastomotic doughnut. The proximal bowel was occluded, the pelvis filled with saline and insufflation of the rectum demonstrated no leak. The abdomen was copiously irrigated and hemostasis checked. The midline fascia was closed with #1 Maxon running fashion. The subcutaneous tissues were reapproximated using 3 0 Vicryl, skin closed with 3-0 Monocryl. The laparoscopic port incisions were closed with 4-0 Monocryl. The skin was sealed with Dermabond. The sponge instrument count at the end of the operation was correct. The patient emerged from general anesthesia, extubated and transferred to the postoperative care unit in stable condition. Complications: none Post-operative Condition: stable Disposition: Acute Care
[2023-09-18] MEDS: CELECOXIB 200 MG CAPSULE PO (20:30)
[2023-09-18] MEDS: ATORVASTATIN 20 MG TABLET 80 MG PO (20:30)
[2023-09-18] MEDS: MELATONIN 3 MG TABLET 10 MG PO (20:45)
[2023-09-19 04:00] VITALS: BP 114/69; PULSE 90; RESP 17; TEMP 37.1; O2SAT 96
[2023-09-19 04:43] LABS: Add Manual Diff / Slide Review NO; Basophils Absolute Auto 100 /uL (0-100); Basophils Percent Auto 0.4 % (0-2); Eosinophils Absolute Auto 0 /uL (0-450); Hematocrit 37.7 % (41-53); Hemoglobin 13.2 g/dL (13.5-17.5); Lymphocytes Absolute Auto 1200 /uL (1100-4500); Lymphocytes Percent Auto 7.7 % (25-40); Mean Corpuscular Hemoglobin 30.1 PG (26-34); Mean Corpuscular Volume 85.8 fL (80-100); Monocytes Absolute Auto 1000 /uL (0-900); Monocytes Percent Auto 6.6 % (3-14); Neutrophils Absolute Auto 13500 /uL (1500-7000); Neutrophils Percent Auto 85.3 % (50-75); Platelet Count 314 X10^3/uL (150-400); Red Blood Cell Count 4.39 X10^6/uL (4.5-5.9); Red Cell Distribution Width 13.3 % (11.6-14.8); White Blood Cell Count 15.8 X10^3/uL (4.5-11.0)
[2023-09-19 04:47] LABS: BUN Creatinine Ratio 10.5 (6-22); Blood Urea Nitrogen 11 mg/dL (9-20); Calcium 9.1 mg/dL (8.4-10.2); Carbon Dioxide 20 mmol/L (22-32); Chloride 95 mmol/L (98-107); Estimated Glomerular Filt Rate > 60 mL/min (>60); Glucose 150 mg/dL (80-110); HEMOLYSIS < 15 (0-50); Potassium 4.2 mmol/L (3.4-5.1); Sodium 128 mmol/L (137-145)
[2023-09-19 08:00] VITALS: BP 118/70; PULSE 99; RESP 16; TEMP 37.3; O2SAT 94
[2023-09-19] MEDS: METOPROLOL IR 50 MG TABLET PO (08:29)
[2023-09-19] MEDS: OXYCODONE IR 5 MG TABLET PO (08:29)
[2023-09-19] MEDS: CELECOXIB 200 MG CAPSULE PO (08:29)
--- NOTE | 2023-09-19 08:51 | OT.IPNOTE ---
Spoke to pt regarding OT needs and pt states has already been up to the bathroom his own and feels has no needs. Able to give pt information of needs and suggestions after abdominal sx. Discharge OT eval orders , no charge.
[2023-09-19 10:00] VITALS: O2SAT 94
--- NOTE | 2023-09-19 10:41 | P.DS_ITS ---
History of Present Illness History of Present Illness Date Patient Seen: 09/19/23 Time Patient Seen: 10:56 Chief complaint: Lap Assist Colectomy Narrative: 67-year-old man with recurrent uncomplicated diverticulitis here for semi elective laparoscopic sigmoid colectomy. Discharge Providers Provider Date of admission: 09/18/23 10:01 Discharge Date: 09/19/23 Primary care physician: AKASH Calixto Consults: 09/18/23 14:20 Consult to Physical Therapy Evaluate & Treat Comment: Physician Instructions: Evaluate and Treat 09/18/23 14:21 Consult to Occupational Therapy Evaluate & Treat Comment: Physician Instructions: Evaluate and treat Discharge provider: Abdon Juarez MD Summary Hospital Course Discharge Diagnosis: Diverticulitis Sigmoid colectomy Hospital Course: Underwent laparoscopic-assisted sigmoid colectomy September 18, 2023. Unremarkable operation. Postoperatively he did well. He had return of bowel function diet progressed which he tolerated without issue. He has been ambulatory and afebrile pain is well controlled with oral medication. Exam Vital Signs (past 8 hours): - 09/19/23 04:00 09/19/23 06:00 09/19/23 08:00 Temperature 98.8 F 99.2 F Pulse Rate 90 99 H Respiratory Rate 17 16 Blood Pressure 114/69 118/70 Pulse Oximetry 96 94 Oxygen Delivery Method Room Air Oxygen Flow Rate 0 09/19/23 10:00 Temperature Pulse Rate Respiratory Rate Blood Pressure Pulse Oximetry 94 Oxygen Delivery Method Room Air Oxygen Flow Rate 0 Oxygen Delivery Method Room Air Oxygen Flow Rate 0 Narrative Exam Narrative: General adult man alert oriented no acute distress Abdomen soft appropriately tender to palpation. Incisions clean dry intact. Objective Labs 09/19/23 04:26 09/19/23 04:26 Labs: Laboratory Results - last 24 hr 09/19/23 04:26 WBC 15.8 H RBC 4.39 L Hgb 13.2 L Hct 37.7 L MCV 85.8 MCH 30.1 MCHC 35.0 RDW 13.3 Plt Count 314 Neut % (Auto) 85.3 H Lymph % (Auto) 7.7 L Sunflower % (Auto) 6.6 Eos % (Auto) 0.0 L Baso % (Auto) 0.4 Neut # (Auto) 60622 H Lymph # (Auto) 1200 Sunflower # (Auto) 1000 H Eos # (Auto) 0 Baso # (Auto) 100 Sodium 128 L Potassium 4.2 Chloride 95 L Carbon Dioxide 20 L BUN 11 Creatinine 1.05 Estimated GFR > 60 BUN/Creatinine Ratio 10.5 Glucose 150 H Calcium 9.1 PFSH Medical History (Updated 09/10/23 @ 12:08 by Ana Lilia Crocker RN) COPD (chronic obstructive pulmonary disease) H/O ETOH abuse Inferior [place] (2010) GERD (gastroesophageal reflux disease) HLD (hyperlipidemia) Coronary artery disease HTN (hypertension) Surgical History (Updated 09/10/23 @ 12:08 by Ana Lilia Crocker RN) H/O vasectomy S/P UPPP (uvulopalatopharyngoplasty) (~1993) H/O heart artery stent (2010) Family History Father Heart disease Social History marital status: household members: spouse lives independently: Yes occupational status: previously employed Smoking Status: Current every day smoker alcohol intake: former substance use type: does not use Discharge Plan Discharge Plan Patient Disposition: Home Provider Discharge Comment: -Okay to shower today. -Do not submerge/soak wounds in water until seen in follow-up. -No lifting >10 lbs x 4 weeks. -Walking only for exercise for 4 weeks. -No driving while taking narcotics. Discharge orders & Medications Prescriptions: New oxycodone 5 mg tablet 5 mg PO Q6H PRN (Reason: pain) Qty: 20 0RF acetaminophen [Tylenol] 325 mg capsule 650 mg PO QID PRN (Reason: pain) Qty: 60 0RF ibuprofen 200 mg tablet 400 mg PO Q6H Qty: 60 0RF Continued metoprolol tartrate 50 mg Tablet 50 mg PO BID Qty: 0 lisinopril 5 mg Tablet 5 mg PO BEDTIME Qty: 0 aspirin 81 MG tablet,delayed release (DR/EC) 81 mg PO DAILY Qty: 0 oxycodone 5 mg tablet 5 mg PO Q8H PRN (Reason: pain) Qty: 20 0RF ondansetron 4 mg tablet,disintegrating 4 mg PO TID-QID PRN (Reason: nausea and vomiting) Qty: 10 0RF omeprazole 20 mg Capsule,Delayed Release(Dr/Ec) 20 mg PO QPM rosuvastatin 40 mg tablet 40 mg PO DAILY Discontinued ciprofloxacin HCl 750 mg tablet 750 mg PO BID metronidazole 500 mg tablet 500 mg PO BID Follow up/Referrals: Jia Orlando ARNP [Primary Care Provider] - 1 Month Abdon Juarez MD [Physician] - 2 Weeks Visit Report/Discharge Packet Stand Alone Forms: Patient Portal/API, Stroke Signs & Symptoms Discharge Data Primary Care Provider: Jia Orlando Quality VTE Deep Vein Thrombosis/Pulmonary Embolism Present on Admission: No
--- NOTE | 2023-09-19 13:38 | PT.IIE ---
Current Diagnoses Diverticulitis of intestine, part unspecified, without perforation or abscess without bleeding (09/18/23) Surgery Performed Operation Date: 09/18/23 11:15 Actual Procedures p Laparoscopic Sigmoid Colectomy(Not Applicable) - Abdon Juarez MD Surgical History (Last Updated 09/10/23 @ 12:08 by Ana Lilia Crocker, RN) H/O heart artery stent (2010) H/O vasectomy S/P UPPP (uvulopalatopharyngoplasty) (~1993) Medical History (Last Updated 09/10/23 @ 12:08 by Ana Lilia Crocker RN) COPD (chronic obstructive pulmonary disease) Coronary artery disease GERD (gastroesophageal reflux disease) H/O ETOH abuse HLD (hyperlipidemia) HTN (hypertension) Inferior [place] (2010) Physical Therapy Inpatient Evaluation/Re-Eval M1 PT/OT-IP Prior Functional Status Start: 09/19/23 13:40 Freq: NEEDED Status: Active Protocol: Document 09/19/23 13:41 AB (Rec: 09/19/23 13:50 AB [id number]) Medical Review Prior Functional Status Medical History Reviewed Yes Communication Pt is able to express all needs. Mobility and Gait IND Activities of Daily Living and IADL's IND with all ADLs and IADLs Social History Household Members spouse Living Arrangements House Number of Floors (Floors) One Floor Number of Stairs To Enter/Railing? 1 PARAMJIT Home Environment Standard Height Toilet,Walk in Shower Additional Social History Comment Pt's is able to assist if needed. M2 PT-IP Current Condition Start: 09/19/23 13:40 Freq: NEEDED Status: Active Protocol: Document 09/19/23 13:41 AB (Rec: 09/19/23 13:50 AB [id number]) Physical Therapy Current Condition Current Condition Evaluation Date 09/19/23 Treatment Diagnosis s/p laparoscopic sigmoid colectomy Onset Date 09/18/23 M3 PT-IP Subjective Start: 09/19/23 13:40 Freq: NEEDED Status: Active Protocol: Document 09/19/23 13:41 AB (Rec: 09/19/23 13:50 AB [id number]) Subjective Physical Therapy Visit Type Type Initial Evaluation Visit Start Time 13:27 Visit Stop Time 13:38 Total Visit Minutes 11 Physical Therapy Visit Comments Patient Comments Pt presents supine in bed and is agreeable to PT eval. Therapy Pain Assessment Pain When Pain Assessed At Rest Pain Present Pain Present Denied Pain M4 PT-IP Mobility and Gait Start: 09/19/23 13:40 Freq: NEEDED Status: Active Protocol: Document 09/19/23 13:41 AB (Rec: 09/19/23 13:50 AB [id number]) PT-Bed Mobility Assessment Rolling Level of Assist Independent Supine to Sit Supine to Sit Independent Sit to Supine Sit to Supine Independent Scooting Scooting to Edge of Bed Independent PT-Transfer Assessment Sit to and From Stand Sit to and from Stand Independent Equipment Transfer Assistive Device Gait Belt Transfers Transfer Destination Bed,Toilet Transfer Technique ambulated Transfer Ability Level of Assist Independent Comments Mobility Comments The pt performs bed mobility, STS and ambulates with bathroom with independence. The pt is agreeable to change into his clothes and attempt to void. He transfers to toilet independently and dresses independently. The pt is unable to void at this time . The pt then ambulates 250ft independently and ascend/ descend 3 steps without hand rails independently, and ambulates back to room. He is left sitting in bed with all needs met and present at bedside. RN is agreeable to pt being independent in room until discharge. Gait Assessment Gait Gait Assistance Required: Independent Distance (Feet) 250 Assistive Devices Assistive Device Gait Belt Gait Deviations General Gait Pattern Within Normal Limits Comments Gait Comments See mobility comments. No deficits noted. Stair Climbing Assessment Evaluation Level of Assist On Stairs Independent Devices Stair Climbing Assistive Devices None Technique/Endurance Stair Climbing Direction Ascend and Descend Stair Climbing Technique Step Over Step Number of Steps Climbed 3 Query Text: Stair Climbing Set # Repetitions (reps) 1 Comments Stair Climbing Comments See mobility comments. PT-Balance Assessment Sitting Balance and Reactions Static Sitting Balance Ability Normal Dynamic Sitting Balance Ability Normal Standing Balance and Reactions Static Standing Balance Ability Normal Dynamic Standing Balance Ability Normal Device Used none M5 PT-IP Objective Assessments Start: 09/19/23 13:40 Freq: NEEDED Status: Active Protocol: Document 09/19/23 13:41 AB (Rec: 09/19/23 13:50 AB [id number]) Orientation Orientation/Cognition Level of Alertness Alert Orientation Name,Age,Birthday,Month,Date, Year,Day of Week,Place, Situation Language Function Ability No Deficits Noted Safety Awareness Understands Safety Issues Memory Description No Deficits Noted Gross Range of Motion Upper Extremity ROM Assessment Within Functional Limits Lower Extremity ROM Assessment Within Functional Limits Strength Upper Extremity Strength Assessment Within Functional Limits Lower Extremity Strength Assessment Within Functional Limits M6 PT-IP Treatment Start: 09/19/23 13:40 Freq: NEEDED Status: Active Protocol: Document 09/19/23 13:50 AB (Rec: 09/19/23 13:50 AB [id number]) Physical Therapy Treatment Education Education Provided Precautions,Post-Op Packet, Safety Brace Education Patient M7 PT-IP Assessment and Plan Start: 09/19/23 13:40 Freq: NEEDED Status: Active Protocol: Document 09/19/23 13:41 AB (Rec: 09/19/23 13:50 AB [id number]) PT Summary Assessment and Plan Potential Rehabilitation Potential Excellent Status of Condition at Evaluation Stable Summary Impairments Activity Tolerance Progress Towards Goals Safe For Discharge,Goals Met Assessment Summary Russell Burgess is a male patient who is s/p laparoscopic sigmoid colectomy performed on 09/18/23. The pt currently demonstrates independence with all functional mobility and good safety awareness, as detailed above. Based on his high level of function, PT recommends discharge to home with assistance. Pt will be discharged from PT, as he does not have a need for skilled services at this time. Goals Bed Mobility Goal Independent Transfer Goal Independent Gait Goal Independent Gait Distance 300 Other Goals Pt to ambulate 500ft independently to show ability to ambulate community distances. Days to Meet Goals 10 Frequency of Treatment Frequency Of Treatment Discharge Treatment Plan Physical Therapy Treatment Plan Bed Mobility Training,Transfer Training,Gait Training, Therapeutic Exercise,Balance Retraining,Post Op Education, Discharge Planning,Hot or Cold Pack,Neuromuscular Re-ed, Coordination Retraining,Manual Therapy Precautions Abdominal Surgery Precautions Log Roll,Lifting Restrictions, Gait Belt above Incisional Area Weight Bearing Status Weight Bearing Status Weight Bear as Tolerated Recommendations To Nursing Amount of Assist Needed Independent Discharge Recommendations PT Discharge Recommendations Home with Assistance Transportation Needs at Discharge Private Vehicle
[2023-09-19] MEDS: OXYCODONE/APAP 5/325 PREPACK 1 BOTTLE MISC (13:53)
--- NOTE | 2023-09-19 15:34 | CM.DANOTE ---
Reviewed EMR and team rounds for pt's medical status and anticipated d/c needs. Pt discharged prior to this TRAILER STEERER's ability to assess his needs in person. Payor: Medicare Attending: Dr. Mc PCP: Jia Orlando Pt is a 67 year-old M admitted for semi elective laparoscopic sigmoid colectomy. He is post-op day 1, and has been discharged home with the plan of family support, OP f/u with surgeon in 2-weeks. No further d/c needs identified at this time. Discharge Planning/Care Management CM Discharge Assessment Start: 09/19/23 15:33 Freq: Status: Discharge Protocol: Document 09/19/23 15:33 DPL (Rec: 09/19/23 15:34 DPL [id number]) Discharge Planning Assessment Assigned Surveillance Analyst NAYA Galo Advance Directives? No Advance Directives on File No History Provided By Medical Record Expected Length of Stay 1 Prior Living Arrangements House Household Members spouse Type of transporation used prior to Drives own vehicle admit Independent with ADL's Yes Is patient alert and oriented? Yes Caregiver for Another No Comment No anticipated home d/c needs. Barriers to Discharge No Discharge Plan Home Transportation Arrangement [facility] will transport Referrals Initiated None needed Review Status In Process Please Provide Date Initial DC 09/19/23 Assessment Was Performed Pre-Anesthesia Assessment Start: 09/10/23 10:45 Freq: Status: Complete Protocol: Document 09/10/23 10:45 CAB (Rec: 09/10/23 11:18 CAB [id number]) Pre-Anesthesia Assessment PAC Comment Admit to 08/29/23-08/31/23 for Diverticulitis Preferred Name Conrado Patient Information Reviewed Via Phone Assessment Assessment Completed With Patient Primary Care Provider Jia Orlando Seen Specialist in Last 12 Months Yes Specialist Seen Fuel Quality Tech,General surgeon Primary Language Salvadorean Preferred Language Salvadorean Surveyor Mine Required No Height 175.26 cm Weight 77.111 kg Body Mass Index (BMI) 25.1 Hearing Ability Normal Visual Assist Magnifying Glass Dentition Type Teeth, Natural Present,Teeth, Missing Barriers to Learning None Hx Anesthesia Reactions No Hx Family Anesthesia Reaction No Hx Malignant Hyperthermia No Hx Blood Transfusions No Anesthesia Review Requested No Sales Enablement Consultant No alcohol intake former Smoking Status Current every day smoker Tobacco type cigarettes Smoking packs per day 0.5 Substance Use Type does not use Pain Present Pain Reported Comment Abdominal History of Falling (Recent or History of No ) Patient is completely paralyzed or No completely immobile Mental Status Oriented to own ability Is patient on oxygen? No Does patient have WALTERS/SOB No Hx Sleep Apnea No Currently Taking a Beta Jose Yes: Metoprolol Can You Climb a Flight of Stairs Without Yes SOB Hx Chest Pain No Hx SOB No Hx Syncope or Dizziness No Anti-Coagulant Therapy Yes: ASA 81mg-pt advised to hold per surgeon Has a Fuel Quality Tech Yes: Last visit 07/10/[address] Hahn @ [facility] Cardiac Testing No Hx Pacemaker/ICD No Pacemaker Rep Required? No Comment Hx of cardiac stent > 10 years ago Additional comment Cardiac records scanned Diet Type At Home Regular Dysphagia No Gastrointestinal Symptoms Abdominal Pain,Excessive Flatus,Loose Stools,Reflux Urinary Catheter Present No Hx Urinary Self Catheterization No Diabetes No Hx Drug Resistant Organism No Presence of External or Internal Medical Yes: Cardiac stent Devices Received a COVID vaccine? Yes Received all doses? No Marital Status Lives With spouse Current Living Arrangements House Number of Floors (Floors) One Floor Support System Spouse Does the Patient Have Assistance After Yes Surgery Patient Discharge Plan Description Return Home Comment Pt advised 1-3 day length of stay per surgeon Feels Safe in Current Environment Yes Been Physically Hurt or Threatened By a No Person in Current Environment Do you have thoughts of harming yourself None or others? Are you currently considering suicide? No Do you have a plan to hurt yourself or No Plan others? Do You Have Any Spiritual Beliefs That No May Affect Your HC Choices? Do You Have Any Cultural Practices That No May Affect Your HC Choices? Comment Scientologist Who Can We Speak to About Patient's Care Family, friends Identifying Code for Release of Patient Declines to issue Information Health Care Proxy/Next of Kin Cheri () Health Care Proxy Emergency Contact Name Cheri () Emergency Contact Advance Directives? No Advance Directives on File No Power of Power Plant Operator Apprentice No PAC Instructions Durable medical equipment, Medications to take/avoid, Nasal antibiotic,No ETOH/ petroleum product on skin DOS, NPO,Post-op transportation,Pre -op antibiotic,Pre-surgical wash,Sensory aids,Sturdy shoes /comfortable clothes,Do not bring valuables and remove jewelry
== END 2023-09-19 13:55 | disposition home or self-care (01) | DRG 331 ==
PROVIDERS: Admitting Provider Surgery; PCP Nurse Practitioner; Referring Provider Surgery; Visit Provider Surgery
PROC: 0DTE0ZZ Resection of Large Intestine, Open Approach (ICD-10-PCS; principal; 2023-09-18 11:15)
DX: K57.32 Diverticulitis of large intestine without perforation or abscess without bleeding (principal); I10 Essential (primary) hypertension; K21.9 Gastro-esophageal reflux disease without esophagitis; E78.5 Hyperlipidemia, unspecified; F17.210 Nicotine dependence, cigarettes, uncomplicated
CPT/HCPCS: 36415; 44204; 80048; 85025; 97161; C9290; J0171; J1100; J1170; J1885; J2250; J2405; J2543; J2704; J3010; J3490

== ENCOUNTER 2024-08-26 20:15 | Emergency (ER) | payer MEDICARE, OTHER, SELFPAY ==
[2023-09-18 14:51] VITALS: BMI 23.8
[2024-08-26] VITALS (7 sets, daily range): BP systolic 173–217; BP diastolic 93–110; PULSE 66–78; RESP 15–24; TEMP 37.1; O2SAT 96–98; BMI 25.8
--- NOTE | 2024-08-26 20:31 | DI.CT.S_ITS ---
PROCEDURE: CT HEAD/BRAIN WO CON INDICATIONS: slurred speeech, hand weakness, resolved TECHNIQUE: Noncontrast 4.5 mm thick angled axial sections acquired from the foramen magnum to the vertex, with coronal and sagittal reformats. For radiation dose reduction, the following was used: automated exposure control, adjustment of mA and/or kV according to patient size. COMPARISON: None. FINDINGS: Image quality: Diagnostic. CSF spaces: Basal cisterns are patent. No extra-axial fluid collections. The ventricles are symmetric in size and shape. Brain: No intracranial bleeds or masses. There is cerebral volume loss for age, with resultant ventricular and sulcal prominence. There are periventricular and deep white matter chronic small vessel ischemic changes. There is intracranial internal carotid artery atherosclerosis. Skull and face: Calvarium and visualized facial bones appear intact, without suspicious lesions. Sinuses: Visualized sinuses and mastoids are clear. IMPRESSION: 1. CT head without acute intracranial abnormalities or acute calvarial fractures. 2. Age-related senescent changes and sequela of chronic small vessel ischemic disease. Dictated by: Talon Mcclellan M.D. on 08/26/2024 at 21:26 Approved by: Talon Mcclellan M.D. on 08/26/2024 at 21:27
--- NOTE | 2024-08-26 20:33 | ED.NEUROSD ---
HPI - Neuro Symptoms/Deficit General Chief Complaint: Neuro Symptoms/Deficit Stated Complaint: poss mini stroke t-1 Time Seen by Provider: 08/26/24 20:31 Source: patient and family Mode of arrival: Ambulatory History of Present Illness HPI Narrative: 68-year-old male left-handed, current smoker, no history of prior stroke/TIA, has history of coronary artery disease status post prior coronary vessel stenting, noted to have right hand tingling and numbness and difficulty holding items 2:00 p.m. yesterday, lasting about 2 hours, did not seek care for this problem, did not mentioned to his . He was well the rest of yesterday, slept, this morning was well, proximally 9:00 a.m. however this morning noted he had some slight slurred speech, as if he had a fat lip, no facial weakness or swelling, encouraged patient to go to seek care but patient did declined, went to work through 6:00 p.m., phoned him at 6:00 p.m. and noted speech seemed to be pretty clear, but encouraged him to come here for further evaluation. No numbness or weakness, no speech or swallowing problems, no visual complaints. No headaches. He takes baby aspirin daily, no missed doses, no other blood thinner medications. He admits to having right finger numbness to the 4th and 5th fingers for few hours in March 2024, did not seek care for this problem. No injury or wrist pain problems at that time. He has a chronic smoker's cough, increased for about 1 month, denies shortness of breath or chest pain. On Anticoagulants: No Related Data Home Medications Medication Instructions Recorded Confirmed lisinopril 5 mg tablet 5 mg PO BEDTIME ##0 01/30/11 10/31/23 metoprolol tartrate 50 mg tablet 50 mg PO BID ##0 01/30/11 10/31/23 aspirin 81 mg tablet,delayed 81 mg PO DAILY ##0 12/30/17 10/31/23 release rosuvastatin 40 mg tablet 40 mg PO DAILY 08/30/23 10/31/23 omeprazole 20 mg capsule,delayed 20 mg PO QPM 09/10/23 10/31/23 release Previous Rx's Medication Instructions Recorded ondansetron 4 mg disintegrating 4 mg PO TID-QID PRN nausea and 08/14/23 tablet vomiting #10 tabs acetaminophen 325 mg capsule 650 mg (2 x 325 mg) PO QID PRN 09/19/23 (Tylenol) pain #60 caps ibuprofen 200 mg tablet 400 mg (2 x 200 mg) PO Q6H #60 tabs 09/19/23 oxycodone 5 mg tablet 5 mg PO Q6H PRN pain #20 tabs 09/19/23 Allergies Allergy/AdvReac Type Severity Reaction Status Date / Time No Known Drug Allergies Allergy Verified 10/31/23 12:55 Review of Systems Review of Systems Narrative: see HPI Hematologic/Lymphatic On Anticoagulants: No Patient History Medical History COPD (chronic obstructive pulmonary disease) H/O ETOH abuse Inferior NC (2010) GERD (gastroesophageal reflux disease) HLD (hyperlipidemia) Coronary artery disease HTN (hypertension) Surgical History Hx of colectomy H/O vasectomy S/P UPPP (uvulopalatopharyngoplasty) (~1993) H/O heart artery stent (2010) Family History Father Heart disease Social History marital status: household members: spouse lives independently: Yes occupational status: previously employed Smoking Status: Current every day smoker alcohol intake: former substance use type: does not use Smoking Status: Current every day smoker tobacco type: cigarettes alcohol intake frequency: holidays/special occasions only Substance Use Type: does not use Exam Narrative Exam Narrative: GENERAL: Well-developed patient, in mild distress. HEAD: Atraumatic. Normocephalic. EYES: Pupils equal round and reactive. Extraocular motions intact. No scleral icterus. No injection or drainage. ENT: Nose without bleeding, purulent drainage. Throat without erythema, tonsillar hypertrophy or exudate. Airway patent. NECK: Trachea midline. Non tender CARDIOVASCULAR: Regular rate and rhythm without murmurs, gallops, or rubs. RESPIRATORY: Clear to auscultation. Breath sounds equal bilaterally. No wheezes, rales, or rhonchi. GASTROINTESTINAL: Abdomen soft, non-tender, nondistended. EXTREMITIES: No edema or joint tenderness. BACK: Nontender without deformity or crepitance. No flank tenderness. NEURO: AOx3. Clear speech, at baseline per at bedside. Cranial nerves 2 through 12 intact. Motor functions 5/5 bilateral upper extremities. Motor functions 5/5 bilateral lower extremities. Intact to light touch face upper extremities lower extremities. NIHSS score 0. SKIN: No rash or erythema of visible areas Initial Vital Signs Initial Vital Signs: Vital Signs Temperature 98.7 F 08/26/24 20:20 Pulse Rate 78 08/26/24 20:20 Respiratory Rate 18 08/26/24 20:20 Blood Pressure 217/102 H 08/26/24 20:20 Pulse Oximetry 98 08/26/24 20:20 Oxygen Delivery Method Room Air 08/26/24 20:20 Scores NIH Stroke Scale Level of Conciousness: Alert, keenly responsive Ask month/age: Answers both questions correctly. Open/close eyes, close hand: Performs both tasks correctly Best gaze horizontal: Normal Visual smith: No visual loss Facial palsy: Normal symetrical movement Left arm drift: No drift for full 10 sec Right arm drift: No drift for full 10 sec Left leg drift: No drift for full 5 sec Right leg drift: No drift for full 5 sec Sensory on face/arms/legs: Normal, no sensory loss Best language: No aphasia, normal Dysarthria: Normal Extinction or inattention: No abnormality Citation:: NIHSS score 0. Course Orders Ordered: ED Orders 08/26/24 20:30 Complete Blood Count AUTO DIFF Stat Comprehensive Metabolic Panel Stat Ethanol (ETOH) Stat PTT Partial Thromboplastin Tres Stat Prothrombin Time INR Stat Troponin & CK Cardiac Panel Stat 08/26/24 20:31 CT head/brain wo con Stat EKG-12 Lead Stat 08/26/24 20:32 CT angio head and neck Stat 08/26/24 21:18 COVID19 -Nasal RAPID Stat 08/26/24 22:06 Urine Drug Screen, Rapid Stat Discontinued Medications Aspirin (Aspirin 81 Mg Chew Tab) 243 mg PO NOW ONE Stop: 08/26/24 21:42 Last Admin: 08/26/24 21:50 Dose: 243 mg Documented By: KACI Vital Signs Vital signs: Vital Signs - 8 hr 08/26/24 20:20 08/26/24 20:32 08/26/24 21:00 Temperature 98.7 F Pulse Rate 78 77 68 Respiratory Rate 18 24 21 Blood Pressure 217/102 H Pulse Oximetry 98 96 96 Oxygen Delivery Method Room Air 08/26/24 21:01 08/26/24 21:01 08/26/24 21:20 Temperature Pulse Rate 67 69 Respiratory Rate 17 15 Blood Pressure 179/93 H Pulse Oximetry 96 97 Oxygen Delivery Method Room Air 08/26/24 21:20 08/26/24 21:30 08/26/24 21:30 Temperature Pulse Rate 66 Respiratory Rate 22 Blood Pressure 194/110 H 187/107 H Pulse Oximetry 97 Oxygen Delivery Method Room Air 08/26/24 22:00 08/26/24 22:00 Temperature Pulse Rate 67 Respiratory Rate 21 Blood Pressure 173/107 H Pulse Oximetry 96 Oxygen Delivery Method MDM - Neuro Symptoms/Deficit Medical Records Medical records narrative: 68-year-old left-handed male with history of ongoing smoking, previous coronary stenting, now with right hand tingling and numbness for about 2 hours yesterday that seemed to be resolved, noted by 9 this morning to have altered speech but did not want to seek care, was not aware of altered speech, returned from work 6:00 p.m. feels that his speech is better but wants him to be evaluated, patient here for evaluation per 's urging. He takes baby aspirin daily. CT head noncontrast, no acute changes. See radiology report CT head and neck vessels, no thromboses or significant narrowing. See radiology report We will give additional oral aspirin 243 mg. Consider admission for telemetry monitoring, MRI imaging, echo, fasting lipids. Patient amenable. Will contact hospitalist Patient however decided not to stay to talk with hospitalist, did not want to stay in the hospital or have further testing, stated this in front of his to did not protest his decision, we discussed his departure could lead to missing other diagnoses that could be quite serious, result in worsening condition, disability, loss of independence, and in theory even . Patient persisted in his desire to leave against medical advice now. Discharged against medical advice with . Informed they could return at any time. Lab Data Attestation: I reviewed the patient's lab results. Lab results narrative: Glucose 110. White blood cell count 8200, hemoglobin 15.8, platelets [id number] adequate. Electrolytes unremarkable, renal function normal. Liver functions normal. Ethanol negative. 08/26/24 20:30 08/26/24 20:30 Labs: Lab Results 08/26/24 08/26/24 08/26/24 Range/Units 20:30 21:18 22:06 WBC 8.2 (4.5-11.0) X10^3/uL RBC 5.14 (4.5-5.9) X10^6/uL Hgb 15.8 (13.5-17.5) g/dL Hct 44.9 (41-53) % MCV 87.4 (80-100) fL MCH 30.8 (26-34) PG MCHC 35.2 (30-36) % RDW 13.1 (11.6-14.8) % Plt Count 180 (150-400) X10^3/uL Neut % (Auto) 55.7 (50-75) % Lymph % (Auto) 29.0 (25-40) % Dickson % (Auto) 9.3 (3-14) % Eos % (Auto) 4.8 H (2-4) % Baso % (Auto) 1.2 (0-2) % Neut # (Auto) 4500 (8388-7615) /uL Lymph # (Auto) 2400 (4654-2000) /uL Dickson # (Auto) 800 (0-900) /uL Eos # (Auto) 400 (0-450) /uL Baso # (Auto) 100 (0-100) /uL PT 11.4 (9.4-12.5) SECONDS INR 1.0 (0.9-1.3) APTT 35 (25.1-36.5) SECONDS Sodium 136 L (137-145) mmol/L Potassium 3.9 (3.4-5.1) mmol/L Chloride 95 L (98-107) mmol/L Carbon Dioxide 31 (22-32) mmol/L BUN 12 (9-20) mg/dL Creatinine 1.17 (0.66-1.25) mg/dL Estimated GFR > 60 (>60) mL/min BUN/Creatinine Ratio 10.3 (6-22) Glucose 110 (80-110) mg/dL Calcium 9.9 (8.4-10.2) mg/dL Total Bilirubin 0.8 (0.2-1.3) mg/dL AST 31 (17-59) IU/L ALT 20 (<50) IU/L Alkaline Phosphatase 57 (38-126) U/L Total Creatine Kinase 188 H (55-170) U/L Troponin I < 0.012 (0.01-0.034) ng/mL Total Protein 8.1 (6.3-8.2) g/dL Albumin 4.9 (3.5-5.0) g/dL Globulin 3.2 (1.7-4.1) g/dL Albumin/Globulin Ratio 1.5 (1.0-2.8) U Opiates 300ng/mL cut Negative (Negative) Ur Oxycodone Screen Negative (Negative) Urine Methadone Screen Negative (Negative) Ur Barbiturates Screen Negative (Negative) U Tricyclic Antidepress Negative (Negative) Ur Phencyclidine Scrn Negative (Negative) Ur Amphetamines Screen Negative (Negative) U Methamphetamines Scrn Negative (Negative) Ur MDMA Scrn (Ecstasy) Negative (Negative) U Benzodiazepines Scrn Negative (Negative) Urine Cocaine Screen Negative (Negative) U Marijuana (THC) Screen Negative (Negative) Urine pH Normal (Normal) Urine Specific [place] Normal (Normal) Ethyl Alcohol < 10 ( - 10) mg/dL Ur Creatinine Normal (Normal) SARS-CoV-2 (PCR) Negative (Negative) Point of Care Testing Glucose POC [address] scan - head: Radiologist's Impression: [place] [address] CT Scan Report Signed Patient: Russell Burgess MR#: [id number] : 1955 Acct:[id number] Age/Sex: 68 / M Date of Service: 08/26/24 Loc: ED Accession Number: [id number] Procedure: CT head/brain wo con Ordering Provider: Anibal Abreu MD PROCEDURE: CT HEAD/BRAIN WO CON INDICATIONS: slurred speeech, hand weakness, resolved TECHNIQUE: Noncontrast 4.5 mm thick angled axial sections acquired from the foramen magnum to the vertex, with coronal and sagittal reformats. For radiation dose reduction, the following was used: automated exposure control, adjustment of mA and/or kV according to patient size. COMPARISON: None. FINDINGS: Image quality: Diagnostic. CSF spaces: Basal cisterns are patent. No extra-axial fluid collections. The ventricles are symmetric in size and shape. Brain: No intracranial bleeds or masses. There is cerebral volume loss for age, with resultant ventricular and sulcal prominence. There are periventricular and deep white matter chronic small vessel ischemic changes. There is intracranial internal carotid artery atherosclerosis. Skull and face: Calvarium and visualized facial bones appear intact, without suspicious lesions. Sinuses: Visualized sinuses and mastoids are clear. IMPRESSION: 1. CT head without acute intracranial abnormalities or acute calvarial fractures. 2. Age-related senescent changes and sequela of chronic small vessel ischemic disease. Dictated by: Talon Mcclellan M.D. on 08/26/2024 at 21:26 Approved by: Talon Mcclellan M.D. on 08/26/2024 at 21:27 CTA - brain/neck: Radiologist's Impression: [address] [address] [address] Scan Report Signed Patient: Russell Burgess MR#: [id number] : 1955 Acct:[id number] Age/Sex: 68 / M Date of Service: 08/26/24 Loc: ED Accession Number: [id number] Procedure: CT angio head and neck Ordering Provider: Anibal Abreu MD PROCEDURE: CT ANGIO HEAD AND NECK INDICATIONS: slurred speech, hand weakness, resolved TECHNIQUE: After the administration of intravenous contrast, 1 mm thick sections acquired from the aortic arch through the [place] of [place]. 3-dimensional havhldr-trxxquebx-siketisjjl (MIP) and/or volume rendering reformats were acquired of the central intracranial vasculature and neck separately. For radiation dose reduction, the following was used: automated exposure control, adjustment of mA and/or kV according to patient size. COMPARISON: None. FINDINGS: Image quality: Diagnostic. BRAIN: CSF spaces: Ventricles are normal in size and shape. Basal cisterns are patent. No extra-axial fluid collections. Brain: No midline shift. No intracranial masses. No suspicious enhancement. Mei-white matter interface appears intact. Skull and face: Calvarium and facial bones appear intact, without suspicious lesions. Orbits appear normal. Sinuses: Sinuses and mastoids are clear. HEAD CT ANGIOGRAPHY: Anterior circulation: There are atherosclerotic calcifications of the intracranial segments of the internal carotid arteries. Intracranial internal carotid arteries appear patent without high-grade stenosis. There is flow/opacification within the paired anterior cerebral arteries. There is opacification within the middle cerebral arteries. The anterior communicating artery is seen. No aneurysms are seen. No occlusion. Posterior circulation: Atherosclerotic calcifications of the intracranial segments of the vertebral arteries. Visualized portions of the vertebral arteries are patent and join to form a normal appearing basilar artery. No evidence for high-grade stenosis. No occlusions. There is opacification of the posterior cerebral arteries. No aneurysms are seen. NECK CT ANGIOGRAPHY: Carotid system: The great vessels demonstrate a conventional anatomy as they arise from the aortic arch. Atherosclerotic calcifications of the aortic arch are present. The origins of the common carotid arteries appear patent. The common carotid arteries appear patent throughout their visualized courses without high grade stenosis. The bifurcation regions are both patent without high grade stenosis. The internal carotid arteries demonstrate normal calibers and courses. Posterior circulation: The origins of the vertebral arteries both appear patent without hemodynamically significant stenosis. The more superior extracranial portions of both vertebral arteries also demonstrate normal courses and calibers. They join to form a normal appearing basilar artery. Soft tissues: Visualized neck soft tissues demonstrate no suspicious abnormalities. No apical pneumothorax. No suspicious adenopathy. Bones: No suspicious bony lesions. Visualized cervical spine appears normally aligned. No acute compression fractures of the vertebral bodies. Multilevel cervical spondylosis. IMPRESSION: No significant intracranial arterial abnormality is seen. No significant abnormality is seen within the arteries of the neck. If there is persistent or high clinical suspicion for acute cerebrovascular ischemia/stroke, more sensitive evaluation with brain MRI can be considered. Any quantitative measurements of stenosis were performed using NASCET criteria. Dictated by: Talon Mcclellan M.D. on 08/26/2024 at 21:27 Approved by: Talon Mcclellan M.D. on 08/26/2024 at 21:31 ECG Data Attestation: I personally reviewed and interpreted this ECG as follows: Interpretation: Normal sinus rhythm with rate of 63, no obvious ST segment elevation or depression changes. WI 166, QRS 88, QTC 431. Discharge Plan Departure Patient Disposition: Left Against Medical Advice Clinical Impression: Transient ischemic attack (TIA), Current smoker, Left against medical advice Activity Restrictions/Additional Instructions: Right hand weakness yesterday, difficulty with speech noted by earlier today, symptoms resolved. EKG and blood work unremarkable. CT head no acute changes. CT angiogram head and neck vessels unremarkable. Recommendations were for admission on continued telemetry cardiac monitoring, with MRI of the brain tomorrow, echocardiogram heart ultrasound, further blood testing, and coordination of Neurology follow up consultation depending on results. You declined all of these, and decided that you would leave against medical advice now. You stated that you would return tomorrow for further testing, did not want have testing now. Refusal of testing now could result in recurrence of neurological problems that could perhaps persist, causing a stroke, causing loss of activity, loss of independence, even more severe difficulties with ability to breathe and take care herself, even . You did not want to have further testing and evaluation at this time, were encouraged to take full aspirin daily. You decided not have further testing and evaluation here in the emergency department, and left emergency department against medical advice. You left the department with your , who was aware of your decision to leave against medical advice at this time. Prescriptions: No Action metoprolol tartrate 50 mg Tablet 50 mg PO BID Qty: 0 lisinopril 5 mg Tablet 5 mg PO BEDTIME Qty: 0 aspirin 81 MG tablet,delayed release (DR/EC) 81 mg PO DAILY Qty: 0 ondansetron 4 mg tablet,disintegrating 4 mg PO TID-QID PRN (Reason: nausea and vomiting) Qty: 10 0RF omeprazole 20 mg Capsule,Delayed Release(Dr/Ec) 20 mg PO QPM ibuprofen 200 mg tablet 400 mg PO Q6H Qty: 60 0RF oxycodone 5 mg tablet 5 mg PO Q6H PRN (Reason: pain) Qty: 20 0RF acetaminophen [Tylenol] 325 mg capsule 650 mg PO QID PRN (Reason: pain) Qty: 60 0RF rosuvastatin 40 mg tablet 40 mg PO DAILY Referrals: Jia Orlando ARNP [Primary Care Provider] - Stand Alone Forms: Patient Portal/API, Against Medical Advice
[2024-08-26 20:41] LABS: Add Manual Diff / Slide Review NO; Basophils Absolute Auto 100 /uL (0-100); Basophils Percent Auto 1.2 % (0-2); Eosinophils Absolute Auto 400 /uL (0-450); Eosinophils Percent Auto 4.8 % (2-4); Hematocrit 44.9 % (41-53); Hemoglobin 15.8 g/dL (13.5-17.5); Lymphocytes Absolute Auto 2400 /uL (1100-4500); Mean Corpuscular HGB Conc 35.2 % (30-36); Mean Corpuscular Hemoglobin 30.8 PG (26-34); Mean Corpuscular Volume 87.4 fL (80-100); Monocytes Absolute Auto 800 /uL (0-900); Monocytes Percent Auto 9.3 % (3-14); Neutrophils Absolute Auto 4500 /uL (1500-7000); Neutrophils Percent Auto 55.7 % (50-75); Platelet Count 180 X10^3/uL (150-400); Red Blood Cell Count 5.14 X10^6/uL (4.5-5.9); Red Cell Distribution Width 13.1 % (11.6-14.8); White Blood Cell Count 8.2 X10^3/uL (4.5-11.0)
[2024-08-26 20:49] LABS: Prothrombin Time 11.4 SECONDS (9.4-12.5)
[2024-08-26 20:52] LABS: PTT Partial Thromboplastin Tim 35 SECONDS (25.1-36.5)
[2024-08-26 20:54] LABS: Alanine Aminotransferase 20 IU/L (<50); Albumin 4.9 g/dL (3.5-5.0); Albumin Globulin Ratio 1.5 (1.0-2.8); Alkaline Phosphatase 57 U/L (38-126); Aspartate Aminotransferase 31 IU/L (17-59); BUN Creatinine Ratio 10.3 (6-22); Bilirubin Total 0.8 mg/dL (0.2-1.3); Blood Urea Nitrogen 12 mg/dL (9-20); Calcium 9.9 mg/dL (8.4-10.2); Carbon Dioxide 31 mmol/L (22-32); Chloride 95 mmol/L (98-107); Creatine Kinase 188 U/L (55-170); Estimated Glomerular Filt Rate > 60 mL/min (>60); Ethanol (ETOH) < 10 mg/dL; Globulin 3.2 g/dL (1.7-4.1); Glucose 110 mg/dL (80-110); HEMOLYSIS < 15 (0-50); Potassium 3.9 mmol/L (3.4-5.1); Sodium 136 mmol/L (137-145); Total Protein 8.1 g/dL (6.3-8.2)
[2024-08-26 21:05] LABS: Troponin I < 0.012 ng/mL (0.01-0.034)
--- NOTE | 2024-08-26 21:07 | PC.NURSE ---
Pt to imaging via stretcher with tech
[2024-08-26 21:38] LABS: COVID19 -Nasal RAPID Negative (Negative)
[2024-08-26] MEDS: ASPIRIN 81 MG CHEW TAB 243 MG PO (21:50)
--- NOTE | 2024-08-26 21:58 | EKG_ITS ---
[address] [address] Test Date: 2024-08-26 Pat Name: Russell Burgess Department: Room: Gender: Male Cytology Laboratory Manager: CHERRIE WAYLON : 1955 Requested By: Order Number: [id number] Reading MD: Tonio Shelton Measurements Intervals [place] Rate: 63 P: 76 UT: 166 QRS: 84 QRSD: 88 T: 66 QT: 422 QTc: 431 Interpretive Statements Normal sinus rhythm Electronically Signed On 08-27-2024 8:33:24 PDT by Tonio Shelton
[2024-08-26 22:14] LABS: Ur Creatinine Normal (Normal); Ur Specific Gravity Normal (Normal); Urine Amphetamines Negative (Negative); Urine Barbiturates Negative (Negative); Urine Benzodiazepines Negative (Negative); Urine Cocaine Negative (Negative); Urine MDMA Negative (Negative); Urine Methadone Negative (Negative); Urine Methamphetamines Negative (Negative); Urine Opiates Negative (Negative); Urine Oxycodone Negative (Negative); Urine Phencyclidine Negative (Negative); Urine THC Negative (Negative); Urine Tricyclic Antidepressant Negative (Negative); Urine pH Normal (Normal)
== END 2024-08-26 22:27 | disposition left against medical advice (07) ==
PROVIDERS: Emergency Provider Emergency Medicine; PCP Nurse Practitioner
DX: G45.9 Transient cerebral ischemic attack, unspecified (principal); R47.81 Slurred speech; F17.200 Nicotine dependence, unspecified, uncomplicated; I10 Essential (primary) hypertension; Z11.52 Encounter for screening for COVID-19
CPT/HCPCS: 36415; 70450; 70496; 70498; 80053; 80305; 80320; 82550; 82962; 84484; 85025; 85610; 85730; 87635; 93005; 99284; Q9967

== ENCOUNTER 2024-08-27 13:31 | Emergency (ER) | payer MEDICARE, OTHER, SELFPAY ==
[2023-09-18 14:51] VITALS: BMI 23.8
[2024-08-27] VITALS (19 sets, daily range): BP systolic 151–185; BP diastolic 86–107; PULSE 58–70; RESP 12–23; TEMP 36.4–37.2; O2SAT 96–98; BMI 25.8
--- NOTE | 2024-08-27 14:56 | PC.NURSE ---
Pt here yesterday, left AMA, did not want to be admitted for further testing. Back today. No new symptoms. Pt takes 81mg aspirin daily.
--- NOTE | 2024-08-27 16:35 | DI.MRI.S_ITS ---
PROCEDURE: MR HEAD/BRAIN WO CON INDICATIONS: TIA TECHNIQUE: Non-contrast axial T1 spin echo, axial T2 fast spin echo, sagittal and axial FLAIR, coronal T2 fast spin echo, axial gradient echo, axial diffusion and ADC through the brain. COMPARISON: [facility], CT, CT ANGIO HEAD AND NECK, 08/26/2024, 21:01. [facility], CT, CT HEAD/BRAIN WO CON, 08/26/2024, 20:37. FINDINGS: Image quality: Excellent. CSF spaces: Ventricles appear symmetric in size and shape. Basal cisterns are patent. No extra-axial fluid collections. Brain: No intracranial bleeds or mass effects. There is cerebral volume loss for age. There are periventricular and deep white matter chronic small vessel ischemic changes. Brainstem appears normal. Diffusion-weighted images show no acute infarct. No chronic ischemic insults. Normal intravascular flow voids are present. Skull and face: Calvarial bone marrow is normal in signal. Orbits are normal. Sinuses: Sinuses and mastoids are clear. IMPRESSION: No acute stroke or intracranial mass effect. Dictated by: Milton Mckeon M.D. on 08/27/2024 at 17:02 Approved by: Milton Mckeon M.D. on 08/27/2024 at 17:05
--- NOTE | 2024-08-27 18:29 | ED_ITS ---
HPI - Neuro Symptoms/Deficit General Chief Complaint: Neuro Symptoms/Deficit Stated Complaint: return pt, TIA Time Seen by Provider: 08/27/24 16:01 Source: patient Mode of arrival: Ambulatory History of Present Illness HPI Narrative: 68-year-old male returns today after leaving Against Medical Advice last night for TIA resolved neuro symptoms, having refused admission to be on telemetry and coordinate MRI and echocardiogram studies, returns this evening for MRI study. No new neurological problems. Two days ago he had transient right hand numbness symptoms that resolved spontaneously. Yesterday morning he had speech difficulties noted by the , who convinced him to be seen at 6:00 p.m. yesterday for initial evaluation here, which included CT head and CT angiogram head and neck vessel studies, electrolytes unremarkable at that time, glucose normal, EKG showed normal sinus rhythm. History of hypertension for which she takes metoprolol and lisinopril. No known history of TIA or stroke. He has had no interim new neurological symptoms, no numbness or weakness, no speech issues, no visual issues, feels steady on his gait. He is here requesting to have his MRI study. On Anticoagulants: No Related Data Home Medications Medication Instructions Recorded Confirmed lisinopril 5 mg tablet 5 mg PO BEDTIME ##0 01/30/11 10/31/23 metoprolol tartrate 50 mg tablet 50 mg PO BID ##0 01/30/11 10/31/23 aspirin 81 mg tablet,delayed 81 mg PO DAILY ##0 12/30/17 10/31/23 release rosuvastatin 40 mg tablet 40 mg PO DAILY 08/30/23 10/31/23 omeprazole 20 mg capsule,delayed 20 mg PO QPM 09/10/23 10/31/23 release Previous Rx's Medication Instructions Recorded ondansetron 4 mg disintegrating 4 mg PO TID-QID PRN nausea and 08/14/23 tablet vomiting #10 tabs acetaminophen 325 mg capsule 650 mg (2 x 325 mg) PO QID PRN 09/19/23 (Tylenol) pain #60 caps ibuprofen 200 mg tablet 400 mg (2 x 200 mg) PO Q6H #60 tabs 09/19/23 oxycodone 5 mg tablet 5 mg PO Q6H PRN pain #20 tabs 09/19/23 Allergies Allergy/AdvReac Type Severity Reaction Status Date / Time No Known Drug Allergies Allergy Verified 10/31/23 12:55 Review of Systems Review of Systems Narrative: See HPI Hematologic/Lymphatic On Anticoagulants: No Patient History Medical History COPD (chronic obstructive pulmonary disease) H/O ETOH abuse Inferior [place] (2010) GERD (gastroesophageal reflux disease) HLD (hyperlipidemia) Coronary artery disease HTN (hypertension) Surgical History Hx of colectomy H/O vasectomy S/P UPPP (uvulopalatopharyngoplasty) (~1993) H/O heart artery stent (2010) Family History Father Heart disease Social History marital status: household members: spouse lives independently: Yes occupational status: previously employed Smoking Status: Current every day smoker alcohol intake: former substance use type: does not use Smoking Status: Current every day smoker tobacco type: cigarettes alcohol intake frequency: holidays/special occasions only Substance Use Type: does not use Exam Narrative Exam Narrative: GENERAL: Well-developed patient, in mild distress. HEAD: Atraumatic. Normocephalic. EYES: Pupils equal round and reactive. Extraocular motions intact. No scleral icterus. No injection or drainage. ENT: Nose without bleeding, purulent drainage. Throat without erythema, tonsillar hypertrophy or exudate. Airway patent. NECK: Trachea midline. Non tender CARDIOVASCULAR: Regular rate and rhythm without murmurs, gallops, or rubs. RESPIRATORY: Clear to auscultation. Breath sounds equal bilaterally. No wheezes, rales, or rhonchi. GASTROINTESTINAL: Abdomen soft, non-tender, nondistended. EXTREMITIES: No edema or joint tenderness. BACK: Nontender without deformity or crepitance. No flank tenderness. NEURO: AOx3. Cranial nerve examination is again normal. Motor 5/5 bilateral upper extremities and bilateral lower extremities. [id number] testing normal. Sensory intact to light touch face arm and leg. SKIN: No rash or erythema of visible areas Initial Vital Signs Initial Vital Signs: Vital Signs Temperature 98.9 F 08/27/24 13:38 Pulse Rate 70 08/27/24 13:38 Respiratory Rate 18 08/27/24 13:38 Blood Pressure 178/86 H 08/27/24 13:38 Pulse Oximetry 98 08/27/24 13:38 Oxygen Delivery Method Room Air 08/27/24 13:38 Course Orders Ordered: ED Orders 08/27/24 16:35 MR head/brain wo con Stat Vital Signs Vital signs: Vital Signs - 8 hr 08/27/24 13:38 08/27/24 14:59 08/27/24 15:00 Temperature 98.9 F 97.6 F Pulse Rate 70 64 64 Respiratory Rate 18 17 Blood Pressure 178/86 H 163/91 H 159/95 H Pulse Oximetry 98 97 98 Oxygen Delivery Method Room Air Room Air 08/27/24 15:30 08/27/24 16:00 08/27/24 17:03 Temperature Pulse Rate 59 L 63 60 Respiratory Rate 17 21 19 Blood Pressure 151/88 H 163/92 H 170/92 H Pulse Oximetry 96 97 97 Oxygen Delivery Method Room Air Room Air Room Air 08/27/24 17:14 08/27/24 17:15 08/27/24 17:30 Temperature Pulse Rate 59 L 58 L 64 Respiratory Rate 15 15 12 Blood Pressure 185/104 H Pulse Oximetry 98 97 98 Oxygen Delivery Method 08/27/24 17:32 08/27/24 17:32 08/27/24 17:45 Temperature Pulse Rate 63 59 L Respiratory Rate 15 16 Blood Pressure 185/104 H Pulse Oximetry 98 96 Oxygen Delivery Method 08/27/24 18:00 08/27/24 18:01 08/27/24 18:01 Temperature Pulse Rate 61 61 Respiratory Rate 23 22 Blood Pressure 161/93 H Pulse Oximetry 97 96 Oxygen Delivery Method 08/27/24 18:15 08/27/24 18:27 08/27/24 18:30 Temperature Pulse Rate 62 62 Respiratory Rate 14 18 Blood Pressure 160/90 H 180/93 H Pulse Oximetry 98 97 Oxygen Delivery Method Room Air 08/27/24 18:30 08/27/24 18:39 08/27/24 18:45 Temperature Pulse Rate 60 62 Respiratory Rate 15 18 Blood Pressure 169/107 H Pulse Oximetry 97 97 Oxygen Delivery Method MDM - Neuro Symptoms/Deficit Imaging Data MRI head/brain without contrast.: Radiologist's Impression: [address] [address] Magnetic Resonance Report Signed Patient: Russell Burgess MR#: [id number] : 1955 Acct:[id number] Age/Sex: 68 / M Date of Service: 08/27/24 Loc: ED Accession Number: [id number] Procedure: MR head/brain wo con Ordering Provider: Lis Goode MD PROCEDURE: MR HEAD/BRAIN WO CON INDICATIONS: TIA TECHNIQUE: Non-contrast axial T1 spin echo, axial T2 fast spin echo, sagittal and axial FLAIR, coronal T2 fast spin echo, axial gradient echo, axial diffusion and ADC through the brain. COMPARISON: [facility], CT, CT ANGIO HEAD AND NECK, 08/26/2024, 21:01. [facility], CT, CT HEAD/BRAIN WO CON, 08/26/2024, 20:37. FINDINGS: Image quality: Excellent. CSF spaces: Ventricles appear symmetric in size and shape. Basal cisterns are patent. No extra-axial fluid collections. Brain: No intracranial bleeds or mass effects. There is cerebral volume loss for age. There are periventricular and deep white matter chronic small vessel ischemic changes. Brainstem appears normal. Diffusion-weighted images show no acute infarct. No chronic ischemic insults. Normal intravascular flow voids are present. Skull and face: Calvarial bone marrow is normal in signal. Orbits are normal. Sinuses: Sinuses and mastoids are clear. IMPRESSION: No acute stroke or intracranial mass effect. Dictated by: Milton Mckeon M.D. on 08/27/2024 at 17:02 Approved by: Milton Mckeon M.D. on 08/27/2024 at 17:[address] [facility] Narrative Medical decision making narrative: 68-year-old male returns for MRI brain study after leaving against medical advice yesterday with resolved TIA symptoms of right hand numbness and speech difficulties. CT head and CTA head and neck vessels study yesterday negative. He had not stay for overnight admission on telemetry to coordinate MRI brain, echocardiogram, fasting lipids, other studies. He returns today at urging of his to obtain the MRI of the brain study. No interim new neurological symptoms. Neuro exam nonfocal as documented. MRI brain study, no acute changes. See radiology report. Copy of the report given to patient. Patient does not want to stay for telemetry monitoring, does not want to stay for echocardiogram that could be obtained tomorrow during regular hours, does not want to stay for fasting lipid blood testing. He stated that he will have further workup as an outpatient. at bedside did not protest his decision to again leave without further workup. Patient is advised to take aspirin full strength daily. Regarding his blood pressure, systolic blood pressure 170s of concern to patient/. He takes metoprolol and lisinopril, believes his lisinopril dose might be 5 mg, advised he can increase that dose to 10 mg. Would leave metoprolol dose the same now given heart rate 60s. Advised to take full-strength oral aspirin daily. Advised to see his doctor early next week to consider further workup that might include things like echocardiogram, lunchroom monitor, fasting lipid studies. Return precautions discussed. Discharged home with . Discharge Plan Departure Patient Disposition: Home Clinical Impression: Transient ischemic attack (TIA), Hypertension Activity Restrictions/Additional Instructions: 68-year-old left-handed male returns today for further workup of recent transient ischemic attack symptoms, after leaving against medical advice yesterday. Recent resolved right hand numbness, and speech difficulty yesterday. Yesterday here had CT noncontrast study of the brain, CT angiogram of the head and neck vessels, all of which were negative. EKG and lab testing at the time unremarkable. Advised to take full-strength aspirin. Advised to have admission and telemetry monitoring, possibly echocardiogram, MRI of the brain study that might have been done earlier today. You returned today to have MRI brain study. This was performed and was negative. We did not have access to echocardiogram at this time, offered admission for telemetry monitoring, fasting lipid testing in the morning, again declined. Consider workup further as an outpatient that might include cardiac monitoring, echocardiogram, fasting lipid studies, other workup. History of high blood pressure, taking metoprolol and lisinopril. You believes that your lisinopril dose might be 5 mg, if so with elevated blood pressures here you could consider increasing it to 10 mg daily. Keep the same dose of metoprolol for now, as your heart rate seemed to be 60s only for now. Further increase metoprolol now might cause dizziness and adverse symptoms. Take aspirin daily. Follow up with your regular doctor early next week. Return to this/nearest emergency department for any change worsening symptoms or any concerns prior Prescriptions: No Action metoprolol tartrate 50 mg Tablet 50 mg PO BID Qty: 0 lisinopril 5 mg Tablet 5 mg PO BEDTIME Qty: 0 aspirin 81 MG tablet,delayed release (DR/EC) 81 mg PO DAILY Qty: 0 ondansetron 4 mg tablet,disintegrating 4 mg PO TID-QID PRN (Reason: nausea and vomiting) Qty: 10 0RF omeprazole 20 mg Capsule,Delayed Release(Dr/Ec) 20 mg PO QPM ibuprofen 200 mg tablet 400 mg PO Q6H Qty: 60 0RF oxycodone 5 mg tablet 5 mg PO Q6H PRN (Reason: pain) Qty: 20 0RF acetaminophen [Tylenol] 325 mg capsule 650 mg PO QID PRN (Reason: pain) Qty: 60 0RF rosuvastatin 40 mg tablet 40 mg PO DAILY Referrals: Jia Orlando ARNP [Primary Care Provider] - Stand Alone Forms: Patient Portal/API/Survey
== END 2024-08-27 19:16 | disposition home or self-care (01) ==
PROVIDERS: Emergency Provider Emergency Medicine; PCP Nurse Practitioner
DX: G45.9 Transient cerebral ischemic attack, unspecified (principal); I10 Essential (primary) hypertension
CPT/HCPCS: 70551; 99284

== ENCOUNTER 2024-12-21 16:06 | Inpatient (IN) | payer MEDICARE, OTHER, SELFPAY ==
[2023-09-18 14:51] VITALS: BMI 23.8
[2024-12-21] VITALS (23 sets, daily range): BP systolic 116–185; BP diastolic 71–117; PULSE 90–131; RESP 15–28; TEMP 37.2–37.7; O2SAT 88–97; BMI 25.9; BMI 23.9
--- NOTE | 2024-12-21 16:15 | DI.RAD.S_ITS ---
PROCEDURE: XR CHEST 1V INDICATIONS: suspected sepsis TECHNIQUE: One view of the chest was acquired. COMPARISON: [facility], CT, CT ABDOMEN PELVIS W CON, 08/29/2023, 15:15. [facility], CR, CHEST 1 VIEW, 08/18/2016, 20:20. FINDINGS: Surgical changes and devices: None. Lungs and pleura: Lungs are clear. No pleural effusions or pneumothorax. Mediastinum: Aortic arch calcifications. Mediastinal contours appear normal. Heart size is normal. Bones and chest wall: Chronic right 6th-8th lateral rib fractures. No acute, displaced fracture. Overlying soft tissues appear unremarkable. IMPRESSION: No acute cardiothoracic process. Dictated by: Milton Mckeon M.D. on 12/21/2024 at 17:11 Approved by: Milton Mckeon M.D. on 12/21/2024 at 17:12
--- NOTE | 2024-12-21 16:15 | EKG_ITS ---
[facility] [address] [place] [address] Test Date: 2024-12-21 Pat Name: Russell Burgess Department: [facility] Room: Gender: Male Transmission Operator: TATO : 1955 Requested By: Order Number: [id number] Reading MD: Tonio Shelton Measurements Intervals [place] Rate: 115 P: 76 TX: 148 QRS: 84 QRSD: 86 T: 71 QT: 332 QTc: 459 Interpretive Statements Sinus tachycardia Nonspecific ST and T wave abnormality Electronically Signed On 12-21-2024 17:12:04 PST by Tonio Shelton
--- NOTE | 2024-12-21 16:32 | ED.SOB ---
HPI - SOB/Dyspnea <Holly Saldaña, DO - Last Filed: 12/22/24 18:50> General Chief Complaint: Shortness of Breath/Dyspnea Stated Complaint: Respiratory symptoms, chills Time Seen by Provider: 12/21/24 16:31 Source: patient, RN notes reviewed and old records reviewed Mode of arrival: Wheelchair Limitations: no limitations History of Present Illness HPI Narrative: 69-year-old male history of TIA, hypertension, COPD, chronic tobacco use who presents with complaint of fevers, confusion, shortness of breath and wheezing and cough. Patient has also had some nausea or vomiting today. No syncope, no chest pain, patient does note shortness of breath. Had some nausea and vomiting earlier today. Denies any abdominal, back or flank pain. Denies any urinary symptoms. Has a little bit of diarrhea. No new swelling of extremities. Patient quit smoking yesterday because of shortness a breath. His notes he has had some audible wheezing recently in the past several weeks. She also notes he felt very hot earlier today before coming into the ER. Patient does not normally use any inhalers. Does take an aspirin daily is on medication for hypertension, dyslipidemia has had a prior cardiac stent. No reported drug allergies. Does smoke daily, no regular alcohol, denies any recreational drugs. Primary care is through [facility]. Related Data Home Medications Medication Instructions Recorded Confirmed metoprolol tartrate 50 mg tablet 50 mg PO BID ##0 01/30/11 12/21/24 aspirin 81 mg tablet,delayed 81 mg PO BID ##0 12/30/17 12/21/24 release rosuvastatin 40 mg tablet 40 mg PO DAILY 08/30/23 12/21/24 diphenhydramine HCl 50 mg capsule 50 mg PO BEDTIME PRN Sinus Symptoms 12/21/24 12/21/24 lisinopril 10 mg tablet 10 mg PO BID 12/21/24 12/21/24 pseudoephedrine HCl 30 mg tablet 30 mg PO Q4-6H PRN Sinus Symptoms 12/21/24 12/21/24 (Sudafed) varenicline tartrate 0.5 mg (11)-1 See Rx Instructions .Route .COMPLEX 12/21/24 12/21/24 mg (42) tablets in a dose pack Previous Rx's Medication Instructions Recorded albuterol sulfate 90 mcg/actuation 1 inh inhalation QID #8.5 grams 12/22/24 aerosol inhaler doxycycline monohydrate 100 mg 100 mg PO BID #10 caps 12/22/24 capsule prednisone 20 mg tablet 40 mg (2 x 20 mg) PO DAILY #10 tabs 12/22/24 tiotropium bromide 1.25 2 puff inhalation DAILY #4 grams 12/22/24 mcg/actuation mist for inhalation (Spiriva Respimat) Allergies Allergy/AdvReac Type Severity Reaction Status Date / Time No Known Drug Allergies Allergy Verified 12/21/24 16:08 Review of Systems <Holly Saldaña DO - Last Filed: 12/22/24 18:50> Review of Systems ROS Unobtainable: All systems reviewed & are unremarkable except as noted in HPI and below Patient History <Holly Saldaña DO - Last Filed: 12/22/24 18:50> Medical History COPD (chronic obstructive pulmonary disease) H/O ETOH abuse Inferior [place] (2010) GERD (gastroesophageal reflux disease) HLD (hyperlipidemia) Coronary artery disease HTN (hypertension) Surgical History Hx of colectomy H/O vasectomy S/P UPPP (uvulopalatopharyngoplasty) (~1993) H/O heart artery stent (2010) Family History Father Heart disease Social History marital status: household members: spouse lives independently: Yes occupational status: previously employed Smoking Status: Former smoker alcohol intake: former substance use type: does not use Smoking Status: Current every day smoker tobacco type: cigarettes alcohol intake frequency: holidays/special occasions only Exam <DO Mei Cruz Last Filed: 12/22/24 18:50> Narrative Exam Narrative: GENERAL: Alert and oriented x three, male in moderate distress HEENT: Head normocephalic, atraumatic, EOMI, pupils reactive, face symmetric, positive for nasal congestion, moist mucous membranes NECK: Supple, full range of motion CARDIOVASCULAR: Tachycardic but regular rate and rhythm without murmurs, rubs or gallops. RESPIRATORY: Breath sounds equal bilaterally slightly decreased bilaterally, no wheeze, no rales or rhonchi. Mild tachypnea. ABDOMEN: Soft, nontender. Normoactive bowel sounds all 4 quadrants. No guarding or rebound, rigidity, no mass : No CVA tenderness EXTREMITIES: Normal range of motion, no clubbing or edema. Neurovascularly intact NEUROLOGICAL: Cranial nerves II through XII grossly intact. Moving all extremities SKIN: Warm, dry, no petechiae, no rashes or lesions. Initial Vital Signs Initial Vital Signs: Vital Signs Temperature 99.8 F H 12/21/24 16:08 Pulse Rate 128 H 12/21/24 16:08 Respiratory Rate 20 12/21/24 16:08 Blood Pressure 175/117 H 12/21/24 16:08 Pulse Oximetry 88 L 12/21/24 16:08 Oxygen Delivery Method Room Air 12/21/24 16:08 <Ronen Flores, DO - Last Filed: 12/21/24 20:58> Initial Vital Signs Initial Vital Signs: Vital Signs Temperature 99.8 F H 12/21/24 16:08 Pulse Rate 128 H 12/21/24 16:08 Respiratory Rate 20 12/21/24 16:08 Blood Pressure 175/117 H 12/21/24 16:08 Pulse Oximetry 88 L 12/21/24 16:08 Oxygen Delivery Method Room Air 12/21/24 16:08 Course <Holly Saldaña, DO - Last Filed: 12/22/24 18:50> Orders Ordered: Discontinued Medications Acetaminophen (Acetaminophen 325 Mg Tablet) 650 mg PO Q6H PRN PRN Reason: Fever/Mild Pain (1-3) Albuterol/Ipratropium (Albuterol/Ipratropium 3 Ml Ampul) 3 ml INH NOW ONE Stop: 12/21/24 16:40 Last Admin: 12/21/24 17:15 Dose: 3 ml Documented By: FANTA Aspirin (Aspirin Ec 81 Mg Tablet) 81 mg PO BID NICKO Last Admin: 12/22/24 08:47 Dose: 81 mg Documented By: Admin: 12/21/24 23:14 Dose: 81 mg Documented By: FLORIDALMA Diphenhydramine HCl (Diphenhydramine 25 Mg Tablet) 25 mg PO Q6HR PRN PRN Reason: Itching, congestion Last Admin: 12/22/24 09:45 Dose: 25 mg Documented By: ZIA Enoxaparin Sodium (Enoxaparin 30 Mg/0.3 Ml Syringe) 30 mg SUBCUT DAILY [facility] Last Admin: 12/21/24 23:41 Dose: 30 mg Documented By: FLORIDALMA Enoxaparin Sodium (Enoxaparin 40 Mg/0.4 Ml Syringe) 40 mg SUBCUT DAILY [facility] Last Admin: 12/22/24 08:48 Dose: 40 mg Documented By: ZIA Famotidine (Famotidine 20 Mg Tablet) 20 mg PO BID [facility] Last Admin: 12/22/24 08:47 Dose: 20 mg Documented By: Admin: 12/21/24 23:14 Dose: 20 mg Documented By: FLORIDALMA Guaifenesin (Guaifenesin Er 600 Mg Tab) 600 mg PO Q12HR PRN PRN Reason: Cough Last Admin: 12/22/24 09:45 Dose: 600 mg Documented By: ZIA Sodium Chloride (Normal Saline 0.9%) 1,000 mls @ 1,000 mls/hr IV BOLUS ONE Stop: 12/21/24 17:14 Last Infusion: 12/21/24 19:26 Dose: Infused Documented By: Admin: 12/21/24 16:40 Dose: 1,000 mls/hr Documented By: EZEQUIEL Ceftriaxone Sodium 2,000 mg/ (Sodium Chloride) 100 mls @ 200 mls/hr IV NOW ONE Stop: 12/21/24 19:39 Last Infusion: 12/21/24 21:00 Dose: Infused Documented By: Admin: 12/21/24 20:05 Dose: 200 mls/hr Documented By: BAMBI Doxycycline Hyclate 100 mg/ (Sodium Chloride) 100 mls @ 100 mls/hr IV NOW ONE Stop: 12/21/24 19:39 Last Infusion: 12/21/24 22:08 Dose: Infused Documented By: Infusion: 12/21/24 21:23 Dose: 100 mls/hr Documented By: Admin: 12/21/24 21:11 Dose: 100 mls/hr Documented By: CARLOS Ceftriaxone Sodium 1,000 mg/ (Sodium Chloride) 100 mls @ 200 mls/hr IV Q24H [facility] Last Admin: 12/22/24 09:37 Dose: Not Given Documented By: BT Azithromycin 500 mg/ Dextrose 250 mls @ 250 mls/hr IV Q24H [facility] Last Infusion: 12/22/24 11:30 Dose: Infused Documented By: Admin: 12/22/24 09:45 Dose: 250 mls/hr Documented By: ZIA Ceftriaxone Sodium 1,000 mg/ (Sodium Chloride) 100 mls @ 200 mls/hr IV Q24H [facility] Last Infusion: 12/22/24 12:03 Dose: Infused Documented By: Admin: 12/22/24 11:11 Dose: 200 mls/hr Documented By: ZIA Lisinopril (Lisinopril 10 Mg Tablet) 10 mg PO DAILY [facility] Last Admin: 12/22/24 08:47 Dose: 10 mg Documented By: ZIA Methylprednisolone (Methylprednisolone 125 Mg/2 Ml Vial) 125 mg IV NOW ONE Stop: 12/21/24 16:40 Last Admin: 12/21/24 17:20 Dose: 125 mg Documented By: SPF Metoprolol Tartrate (Metoprolol Ir 50 Mg Tablet) 50 mg PO BID [facility] Last Admin: 12/22/24 08:47 Dose: 50 mg Documented By: Admin: 12/21/24 23:14 Dose: 50 mg Documented By: MP Naloxone HCl (Naloxone 0.4 Mg/Ml Vial) 0.2 mg IV Q2MIN PRN PRN Reason: Opiate Reversal Ondansetron HCl (Ondansetron 4 Mg/2 Ml Inj) 4 mg IV NOW PRN PRN Reason: Nausea And Vomiting Ondansetron HCl (Ondansetron 4 Mg Odt) 4 mg SL NOW PRN PRN Reason: Nausea And Vomiting Ondansetron HCl (Ondansetron 4 Mg/2 Ml Inj) 4 mg IV NOW ONE Stop: 12/21/24 16:47 Last Admin: 12/21/24 17:20 Dose: 4 mg Documented By: SPF Ondansetron HCl (Ondansetron 4 Mg/2 Ml Inj) 4 mg IV Q8HR PRN PRN Reason: Nausea And Vomiting Sodium Chloride (Sodium Chloride 0.9% Flush) 10 ml IV PRN PRN PRN Reason: Flush Sodium Chloride (Sodium Chloride 0.9% Flush) 10 ml IV BID [facility] Last Admin: 12/22/24 08:55 Dose: 10 ml Documented By: ZIA Vital Signs Vital signs: Vital Signs - 8 hr 12/21/24 16:08 12/21/24 16:19 12/21/24 16:21 Temperature 99.8 F H Pulse Rate 128 H 122 H 131 H Respiratory Rate 20 28 H 21 Blood Pressure 175/117 H Pulse Oximetry 88 L 88 L Oxygen Delivery Method Room Air Oxygen Flow Rate 12/21/24 16:30 12/21/24 16:30 12/21/24 16:45 Temperature Pulse Rate 116 H Respiratory Rate 21 Blood Pressure 185/81 H 175/88 H Pulse Oximetry 96 Oxygen Delivery Method Nasal Cannula Oxygen Flow Rate 2 12/21/24 16:45 12/21/24 17:00 12/21/24 17:00 Temperature Pulse Rate 123 H 114 H Respiratory Rate 19 21 Blood Pressure 157/85 H Pulse Oximetry 93 95 Oxygen Delivery Method Nasal Cannula Oxygen Flow Rate 2 12/21/24 17:15 12/21/24 17:16 12/21/24 17:16 Temperature Pulse Rate 103 H 109 H Respiratory Rate 16 27 H Blood Pressure 138/74 Pulse Oximetry 95 Oxygen Delivery Method Nasal Cannula Oxygen Flow Rate 2 12/21/24 17:30 12/21/24 17:30 12/21/24 17:46 Temperature Pulse Rate 107 H Respiratory Rate 19 Blood Pressure 143/71 H 132/72 Pulse Oximetry 95 Oxygen Delivery Method Oxygen Flow Rate 12/21/24 17:46 12/21/24 18:00 12/21/24 18:00 Temperature Pulse Rate 106 H 105 H Respiratory Rate 26 H 21 Blood Pressure 129/83 Pulse Oximetry 94 95 Oxygen Delivery Method Nasal Cannula Oxygen Flow Rate 12/21/24 18:15 12/21/24 18:15 12/21/24 19:26 Temperature Pulse Rate 103 H 99 H Respiratory Rate 19 Blood Pressure 126/74 Pulse Oximetry 94 96 Oxygen Delivery Method Oxygen Flow Rate 12/21/24 19:27 12/21/24 19:27 12/21/24 19:29 Temperature Pulse Rate 99 H 96 H Respiratory Rate Blood Pressure 136/83 Pulse Oximetry 96 96 Oxygen Delivery Method Nasal Cannula Oxygen Flow Rate 12/21/24 19:30 Temperature Pulse Rate Respiratory Rate Blood Pressure 127/77 Pulse Oximetry Oxygen Delivery Method Oxygen Flow Rate <Ronen Flores DO - Last Filed: 12/21/24 20:58> Orders Ordered: Discontinued Medications Acetaminophen (Acetaminophen 325 Mg Tablet) 650 mg PO Q6H PRN PRN Reason: Fever/Mild Pain (1-3) Albuterol/Ipratropium (Albuterol/Ipratropium 3 Ml Ampul) 3 ml INH NOW ONE Stop: 12/21/24 16:40 Last Admin: 12/21/24 17:15 Dose: 3 ml Documented By: FANTA Aspirin (Aspirin Ec 81 Mg Tablet) 81 mg PO BID [facility] Last Admin: 12/22/24 08:47 Dose: 81 mg Documented By: Admin: 12/21/24 23:14 Dose: 81 mg Documented By: FLORIDALMA Diphenhydramine HCl (Diphenhydramine 25 Mg Tablet) 25 mg PO Q6HR PRN PRN Reason: Itching, congestion Last Admin: 12/22/24 09:45 Dose: 25 mg Documented By: ZIA Enoxaparin Sodium (Enoxaparin 30 Mg/0.3 Ml Syringe) 30 mg SUBCUT DAILY [facility] Last Admin: 12/21/24 23:41 Dose: 30 mg Documented By: FLORIDALMA Enoxaparin Sodium (Enoxaparin 40 Mg/0.4 Ml Syringe) 40 mg SUBCUT DAILY [facility] Last Admin: 12/22/24 08:48 Dose: 40 mg Documented By: ZIA Famotidine (Famotidine 20 Mg Tablet) 20 mg PO BID [facility] Last Admin: 12/22/24 08:47 Dose: 20 mg Documented By: Admin: 12/21/24 23:14 Dose: 20 mg Documented By: FLORIDALMA Guaifenesin (Guaifenesin Er 600 Mg Tab) 600 mg PO Q12HR PRN PRN Reason: Cough Last Admin: 12/22/24 09:45 Dose: 600 mg Documented By: ZIA Sodium Chloride (Normal Saline 0.9%) 1,000 mls @ 1,000 mls/hr IV BOLUS ONE Stop: 12/21/24 17:14 Last Infusion: 12/21/24 19:26 Dose: Infused Documented By: Admin: 12/21/24 16:40 Dose: 1,000 mls/hr Documented By: EZEQUIEL Ceftriaxone Sodium 2,000 mg/ (Sodium Chloride) 100 mls @ 200 mls/hr IV NOW ONE Stop: 12/21/24 19:39 Last Infusion: 12/21/24 21:00 Dose: Infused Documented By: Admin: 12/21/24 20:05 Dose: 200 mls/hr Documented By: BAMBI Doxycycline Hyclate 100 mg/ (Sodium Chloride) 100 mls @ 100 mls/hr IV NOW ONE Stop: 12/21/24 19:39 Last Infusion: 12/21/24 22:08 Dose: Infused Documented By: Infusion: 12/21/24 21:23 Dose: 100 mls/hr Documented By: Admin: 12/21/24 21:11 Dose: 100 mls/hr Documented By: CARLOS Ceftriaxone Sodium 1,000 mg/ (Sodium Chloride) 100 mls @ 200 mls/hr IV Q24H [facility] Last Admin: 12/22/24 09:37 Dose: Not Given Documented By: BRITTANY Azithromycin 500 mg/ Dextrose 250 mls @ 250 mls/hr IV Q24H [facility] Last Infusion: 12/22/24 11:30 Dose: Infused Documented By: Admin: 12/22/24 09:45 Dose: 250 mls/hr Documented By: ZIA Ceftriaxone Sodium 1,000 mg/ (Sodium Chloride) 100 mls @ 200 mls/hr IV Q24H [facility] Last Infusion: 12/22/24 12:03 Dose: Infused Documented By: Admin: 12/22/24 11:11 Dose: 200 mls/hr Documented By: ZIA Lisinopril (Lisinopril 10 Mg Tablet) 10 mg PO DAILY [facility] Last Admin: 12/22/24 08:47 Dose: 10 mg Documented By: ZIA Methylprednisolone (Methylprednisolone 125 Mg/2 Ml Vial) 125 mg IV NOW ONE Stop: 12/21/24 16:40 Last Admin: 12/21/24 17:20 Dose: 125 mg Documented By: EZEQUIEL Metoprolol Tartrate (Metoprolol Ir 50 Mg Tablet) 50 mg PO BID [facility] Last Admin: 12/22/24 08:47 Dose: 50 mg Documented By: Admin: 12/21/24 23:14 Dose: 50 mg Documented By: FLORIDALMA Naloxone HCl (Naloxone 0.4 Mg/Ml Vial) 0.2 mg IV Q2MIN PRN PRN Reason: Opiate Reversal Ondansetron HCl (Ondansetron 4 Mg/2 Ml Inj) 4 mg IV NOW PRN PRN Reason: Nausea And Vomiting Ondansetron HCl (Ondansetron 4 Mg Odt) 4 mg SL NOW PRN PRN Reason: Nausea And Vomiting Ondansetron HCl (Ondansetron 4 Mg/2 Ml Inj) 4 mg IV NOW ONE Stop: 12/21/24 16:47 Last Admin: 12/21/24 17:20 Dose: 4 mg Documented By: EZEQUIEL Ondansetron HCl (Ondansetron 4 Mg/2 Ml Inj) 4 mg IV Q8HR PRN PRN Reason: Nausea And Vomiting Sodium Chloride (Sodium Chloride 0.9% Flush) 10 ml IV PRN PRN PRN Reason: Flush Sodium Chloride (Sodium Chloride 0.9% Flush) 10 ml IV BID NICKO Last Admin: 12/22/24 08:55 Dose: 10 ml Documented By: ZIA Vital Signs Vital signs: Vital Signs - 8 hr 12/21/24 16:08 12/21/24 16:19 12/21/24 16:21 Temperature 99.8 F H Pulse Rate 128 H 122 H 131 H Respiratory Rate 20 28 H 21 Blood Pressure 175/117 H Pulse Oximetry 88 L 88 L Oxygen Delivery Method Room Air Oxygen Flow Rate 12/21/24 16:30 12/21/24 16:30 12/21/24 16:45 Temperature Pulse Rate 116 H Respiratory Rate 21 Blood Pressure 185/81 H 175/88 H Pulse Oximetry 96 Oxygen Delivery Method Nasal Cannula Oxygen Flow Rate 2 12/21/24 16:45 12/21/24 17:00 12/21/24 17:00 Temperature Pulse Rate 123 H 114 H Respiratory Rate 19 21 Blood Pressure 157/85 H Pulse Oximetry 93 95 Oxygen Delivery Method Nasal Cannula Oxygen Flow Rate 2 12/21/24 17:15 12/21/24 17:16 12/21/24 17:16 Temperature Pulse Rate 103 H 109 H Respiratory Rate 16 27 H Blood Pressure 138/74 Pulse Oximetry 95 Oxygen Delivery Method Nasal Cannula Oxygen Flow Rate 2 12/21/24 17:30 12/21/24 17:30 12/21/24 17:46 Temperature Pulse Rate 107 H Respiratory Rate 19 Blood Pressure 143/71 H 132/72 Pulse Oximetry 95 Oxygen Delivery Method Oxygen Flow Rate 12/21/24 17:46 12/21/24 18:00 12/21/24 18:00 Temperature Pulse Rate 106 H 105 H Respiratory Rate 26 H 21 Blood Pressure 129/83 Pulse Oximetry 94 95 Oxygen Delivery Method Nasal Cannula Oxygen Flow Rate 12/21/24 18:15 12/21/24 18:15 12/21/24 19:26 Temperature Pulse Rate 103 H 99 H Respiratory Rate 19 Blood Pressure 126/74 Pulse Oximetry 94 96 Oxygen Delivery Method Oxygen Flow Rate 12/21/24 19:27 12/21/24 19:27 12/21/24 19:29 Temperature Pulse Rate 99 H 96 H Respiratory Rate Blood Pressure 136/83 Pulse Oximetry 96 96 Oxygen Delivery Method Nasal Cannula Oxygen Flow Rate 12/21/24 19:30 Temperature Pulse Rate Respiratory Rate Blood Pressure 127/77 Pulse Oximetry Oxygen Delivery Method Oxygen Flow Rate MDM - SOB/Dyspnea <Holly Saldaña, DO - Last Filed: 12/22/24 18:50> Lab Data 12/22/24 05:32 12/22/24 05:32 Labs: Lab Results 12/21/24 12/21/24 12/21/24 Range/Units 16:21 16:45 17:25 WBC 13.2 H (4.5-11.0) X10^3/uL RBC 4.73 (4.5-5.9) X10^6/uL Hgb 14.6 (13.5-17.5) g/dL Hct 41.4 (41-53) % MCV 87.5 (80-100) fL MCH 30.8 (26-34) PG MCHC 35.2 (30-36) % RDW 13.8 (11.6-14.8) % Plt Count 158 (150-400) X10^3/uL Neut % (Auto) 88.0 H (50-75) % Lymph % (Auto) 6.3 L (25-40) % Latimer % (Auto) 5.1 (3-14) % Eos % (Auto) 0.2 L (2-4) % Baso % (Auto) 0.4 (0-2) % Neut # (Auto) 41396 H (8293-3320) /uL Lymph # (Auto) 800 L (3076-7354) /uL Latimer # (Auto) 700 (0-900) /uL Eos # (Auto) 0 (0-450) /uL Baso # (Auto) 100 (0-100) /uL PT 11.5 (9.4-12.5) SECONDS INR 1.0 (0.9-1.3) APTT 18 L (25.1-36.5) SECONDS D-Dimer 919 H (<500) ng/ml Sodium 130 L (137-145) mmol/L Potassium 4.1 (3.4-5.1) mmol/L Chloride 94 L (98-107) mmol/L Carbon Dioxide 24 (22-32) mmol/L BUN 16 (9-20) mg/dL Creatinine 1.17 (0.66-1.25) mg/dL Estimated GFR > 60 (>60) mL/min BUN/Creatinine Ratio 13.7 (6-22) Glucose 133 H (80-110) mg/dL Lactate 1.4 (0.7-2.1) mmol/L Calcium 9.1 (8.4-10.2) mg/dL Total Bilirubin 0.9 (0.2-1.3) mg/dL AST 36 (17-59) IU/L ALT 26 (<50) IU/L Alkaline Phosphatase 55 (38-126) U/L Total Creatine Kinase 133 (55-170) U/L Troponin I < 0.012 (0.01-0.034) ng/mL NT-Pro-B Natriuret Pep 146 H (<125) pg/mL Total Protein 7.6 (6.3-8.2) g/dL Albumin 4.5 (3.5-5.0) g/dL Globulin 3.1 (1.7-4.1) g/dL Albumin/Globulin Ratio 1.5 (1.0-2.8) Lipase 89 (23-300) U/L Procalcitonin 0.052 (<0.5) ng/mL Urine RBC None seen (0-5/HPF) Urine WBC 1-5/hpf (0-5/HPF) Ur Squamous Epith Cells None seen (0-5/HPF) Urine Bacteria Few (2-10) H (None) Ur Culture Indicated? Cult not indicated Vol Urine Centrifuged 10ml (spun) SARS-CoV-2 (PCR) Negative (Negative) Influenza A (RT-PCR) Flu a negative (NEGATIVE) Influenza B (RT-PCR) Flu b negative (NEGATIVE) RSV (PCR) Negative (Negative) Urine Dip Bedside Urine Glucose Negative Bedside Urine Bilirubin - Negative Bedside Urine Ketone - Negative Urine Specific Carmen 1.015 Bedside Urine Occult Blood + Bedside Urine pH 6.5 Bedside Urine Protein +/- 15 Bedside Urine Urobilinogen - Negative Bedside Urine Nitrite - Negative Bedside Urine Leukocytes +/- 15 Esterase ECG Data Attestation: I personally reviewed and interpreted this ECG as follows: Prior ECG tracings: available for review Interpretation: Sinus tachycardia rate of 115 MT 148 QRS 86 QTC of 459, no acute ST elevation nonspecific T-wave abnormality. Patient has prior from 08/26/2024 nonspecific change MDM Narrative Medical decision making narrative: 69-year-old male with recent upper respiratory symptoms seemed to be exacerbating chronic COPD. Patient was not particularly wheezy on exam but has a little bit decreased movement bilaterally. He was tachycardic and hypoxic here. EKG shows sinus tachycardia Labs show white count of 13.2 hemoglobin of 14 platelets of 158 <Ronen Flores, DO - Last Filed: 12/21/24 20:58> Lab Data Labs: Lab Results 12/21/24 12/21/24 12/21/24 Range/Units 16:21 16:45 17:25 WBC 13.2 H (4.5-11.0) X10^3/uL RBC 4.73 (4.5-5.9) X10^6/uL Hgb 14.6 (13.5-17.5) g/dL Hct 41.4 (41-53) % MCV 87.5 (80-100) fL MCH 30.8 (26-34) PG MCHC 35.2 (30-36) % RDW 13.8 (11.6-14.8) % Plt Count 158 (150-400) X10^3/uL Neut % (Auto) 88.0 H (50-75) % Lymph % (Auto) 6.3 L (25-40) % Latimer % (Auto) 5.1 (3-14) % Eos % (Auto) 0.2 L (2-4) % Baso % (Auto) 0.4 (0-2) % Neut # (Auto) 85067 H (0760-1086) /uL Lymph # (Auto) 800 L (7147-7226) /uL Latimer # (Auto) 700 (0-900) /uL Eos # (Auto) 0 (0-450) /uL Baso # (Auto) 100 (0-100) /uL PT 11.5 (9.4-12.5) SECONDS INR 1.0 (0.9-1.3) APTT 18 L (25.1-36.5) SECONDS D-Dimer 919 H (<500) ng/ml Sodium 130 L (137-145) mmol/L Potassium 4.1 (3.4-5.1) mmol/L Chloride 94 L (98-107) mmol/L Carbon Dioxide 24 (22-32) mmol/L BUN 16 (9-20) mg/dL Creatinine 1.17 (0.66-1.25) mg/dL Estimated GFR > 60 (>60) mL/min BUN/Creatinine Ratio 13.7 (6-22) Glucose 133 H (80-110) mg/dL Lactate 1.4 (0.7-2.1) mmol/L Calcium 9.1 (8.4-10.2) mg/dL Total Bilirubin 0.9 (0.2-1.3) mg/dL AST 36 (17-59) IU/L ALT 26 (<50) IU/L Alkaline Phosphatase 55 (38-126) U/L Total Creatine Kinase 133 (55-170) U/L Troponin I < 0.012 (0.01-0.034) ng/mL NT-Pro-B Natriuret Pep 146 H (<125) pg/mL Total Protein 7.6 (6.3-8.2) g/dL Albumin 4.5 (3.5-5.0) g/dL Globulin 3.1 (1.7-4.1) g/dL Albumin/Globulin Ratio 1.5 (1.0-2.8) Lipase 89 (23-300) U/L Procalcitonin 0.052 (<0.5) ng/mL Urine RBC None seen (0-5/HPF) Urine WBC 1-5/hpf (0-5/HPF) Ur Squamous Epith Cells None seen (0-5/HPF) Urine Bacteria Few (2-10) H (None) Ur Culture Indicated? Cult not indicated Vol Urine Centrifuged 10ml (spun) SARS-CoV-2 (PCR) Negative (Negative) Influenza A (RT-PCR) Flu a negative (NEGATIVE) Influenza B (RT-PCR) Flu b negative (NEGATIVE) RSV (PCR) Negative (Negative) Urine Dip Bedside Urine Glucose Negative Bedside Urine Bilirubin - Negative Bedside Urine Ketone - Negative Urine Specific Carmen 1.015 Bedside Urine Occult Blood + Bedside Urine pH 6.5 Bedside Urine Protein +/- 15 Bedside Urine Urobilinogen - Negative Bedside Urine Nitrite - Negative Bedside Urine Leukocytes +/- 15 Esterase Imaging Data Chest x-ray: Radiologist's Impression: [address] [address] XRay Report Signed Patient: Russell Burgess MR#: [id number] : 1955 Acct:[id number] Age/Sex: 69 / M Date of Service: 12/21/24 Loc: ED Accession Number: [id number] Procedure: XR chest 1V Ordering Provider: Holly Saldaña D.O. PROCEDURE: XR CHEST 1V INDICATIONS: suspected sepsis TECHNIQUE: One view of the chest was acquired. COMPARISON: [facility], CT, CT ABDOMEN PELVIS W CON, 08/29/2023, 15:15. [facility], CR, CHEST 1 VIEW, 08/18/2016, 20:20. FINDINGS: Surgical changes and devices: None. Lungs and pleura: Lungs are clear. No pleural effusions or pneumothorax. Mediastinum: Aortic arch calcifications. Mediastinal contours appear normal. Heart size is normal. Bones and chest wall: Chronic right 6th-8th lateral rib fractures. No acute, displaced fracture. Overlying soft tissues appear unremarkable. IMPRESSION: No acute cardiothoracic process. CT scan - chest: Radiologist's Impression: [address] [address] [address] Scan Report Signed Patient: Russell Burgess MR#: [id number] : 1955 Acct:[id number] Age/Sex: 69 / M Date of Service: 12/21/24 Loc: ED Accession Number: [id number] Procedure: CT angio chest PE protocol Ordering Provider: Holly Saldaña D.O. PROCEDURE: CT ANGIO CHEST PE PROTOCOL INDICATIONS: tachycardia, hypoxia TECHNIQUE: After the administration of intravenous contrast, 2 mm thick sections acquired from the pulmonary apices to the posterior costophrenic angles. 3-dimensional maximum intensity projection (MIP) coronal and sagittal reformats were then acquired through the thorax. For radiation dose reduction, the following was used: automated exposure control, adjustment of mA and/or kV according to patient size. COMPARISON: [facility], CR, XR CHEST 1V, 12/21/2024, 16:33. FINDINGS: Image quality: Diagnostic. Pulmonary arteries: Pulmonary arteries are normal in size, and demonstrate no intraluminal filling defects to suggest central pulmonary embolism. Lower Neck: No enlarged lymph nodes. Thyroid: No thyroid nodules which require sonographic follow up, per consensus guidelines. Axillae: No enlarged lymph nodes. Chest Wall: Unremarkable. Bones: Unremarkable. Lungs and Pleura: No pneumothorax or pleural effusions. Focal and consolidative clusters of nodularity are present within the lungs bilaterally predominantly within the bases, right greater than left. Heart: Heart size is normal. No pericardial effusion. Thoracic Vessels: No aortic aneurysm. Mediastinum and Neyda: No enlarged lymph nodes. Esophagus: No wall thickening. No hiatal hernia. Upper Abdomen: Visualized upper abdomen solid organs and bowel loops appear normal. IMPRESSION: No pulmonary embolus. Bilateral areas of nodularity most consistent with pneumonia. Recommend interval follow-up to document resolution. MDM Narrative Medical decision making narrative: 69-year-old male with recent upper respiratory symptoms seemed to be exacerbating chronic COPD. Patient was not particularly wheezy on exam but has a little bit decreased movement bilaterally. He was tachycardic and hypoxic here. EKG shows sinus tachycardia Labs show white count of 13.2 hemoglobin of 14 platelets of 158 1800 (Dr. Flores): Patient is signed out to me by Dr. Saldaña, patient is a 69-year-old male recent upper respiratory symptoms history of COPD, just stopped smoking yesterday, hypertension hyperlipidemia comes in complaining of cough shortness of breath patient found to be tachycardic hypoxic requiring 2 L supplemental oxygen, patient did receive albuterol, Solu-Medrol. Ddimer was ordered and elevated at 919, CTA PE ordered. Trop negative, BNP 146. Procal negative. Resp panel negative. 2000: Patient re-evaluated no new complaints at this time states significant improvement of his symptoms, still requiring 2 L nasal cannula, informed him of his CT scan showing bilateral pneumonia and need for admission to the hospital he understands and agrees with this plan call placed out to hospitalist for admission The patient's management plan was discussed Dr. Lincoln, who agrees to admit the patient to their service and assumes care of this patient at this time. Full admission orders will be placed by the primary team. Discharge Plan Departure Patient Disposition: Admitted As Inpatient Clinical Impression: Acute hypoxemic respiratory failure, Multifocal pneumonia Admit Date/Time: 12/21/24 20:58 Admit Provider: Jenifer Lincoln
[2024-12-21] MEDS: SODIUM CHLORIDE 0.9% 1,000 ML 1000 ML IV (16:40)
[2024-12-21 17:04] LABS: Add Manual Diff / Slide Review NO; Basophils Absolute Auto 100 /uL (0-100); Basophils Percent Auto 0.4 % (0-2); Eosinophils Absolute Auto 0 /uL (0-450); Eosinophils Percent Auto 0.2 % (2-4); Hematocrit 41.4 % (41-53); Hemoglobin 14.6 g/dL (13.5-17.5); Lymphocytes Absolute Auto 800 /uL (1100-4500); Lymphocytes Percent Auto 6.3 % (25-40); Mean Corpuscular HGB Conc 35.2 % (30-36); Mean Corpuscular Hemoglobin 30.8 PG (26-34); Mean Corpuscular Volume 87.5 fL (80-100); Monocytes Absolute Auto 700 /uL (0-900); Monocytes Percent Auto 5.1 % (3-14); Neutrophils Absolute Auto 11600 /uL (1500-7000); Platelet Count 158 X10^3/uL (150-400); Red Blood Cell Count 4.73 X10^6/uL (4.5-5.9); Red Cell Distribution Width 13.8 % (11.6-14.8); White Blood Cell Count 13.2 X10^3/uL (4.5-11.0)
[2024-12-21 17:07] LABS: Prothrombin Time 11.5 SECONDS (9.4-12.5)
[2024-12-21 17:10] LABS: PTT Partial Thromboplastin Tim 18 SECONDS (25.1-36.5)
[2024-12-21 17:11] LABS: Lactate (Lactic Acid) 1.4 mmol/L (0.7-2.1)
[2024-12-21 17:12] LABS: Alanine Aminotransferase 26 IU/L (<50); Albumin 4.5 g/dL (3.5-5.0); Albumin Globulin Ratio 1.5 (1.0-2.8); Alkaline Phosphatase 55 U/L (38-126); Aspartate Aminotransferase 36 IU/L (17-59); BUN Creatinine Ratio 13.7 (6-22); Bilirubin Total 0.9 mg/dL (0.2-1.3); Blood Urea Nitrogen 16 mg/dL (9-20); Calcium 9.1 mg/dL (8.4-10.2); Carbon Dioxide 24 mmol/L (22-32); Chloride 94 mmol/L (98-107); Estimated Glomerular Filt Rate > 60 mL/min (>60); Globulin 3.1 g/dL (1.7-4.1); Glucose 133 mg/dL (80-110); HEMOLYSIS < 15 (0-50); Lipase 89 U/L (23-300); Potassium 4.1 mmol/L (3.4-5.1); Sodium 130 mmol/L (137-145); Total Protein 7.6 g/dL (6.3-8.2)
[2024-12-21 17:14] LABS: Influenza A - CEPHEID Flu A NEGATIVE (NEGATIVE); Influenza B - CEPHEID Flu B NEGATIVE (NEGATIVE); Respiratory Syncytial Virus Negative (Negative)
[2024-12-21] MEDS: ALBUTEROL/IPRATROPIUM 3 ML AMPUL INH (17:15)
[2024-12-21] MEDS: methylPREDNISolone 125 MG/2 ML VIAL IV (17:20)
[2024-12-21] MEDS: ONDANSETRON 4 MG/2 ML INJ IV (17:20)
[2024-12-21 17:26] LABS: COVID-19 CEPHEID 4-PLEX PCR Negative (Negative)
[2024-12-21 17:29] LABS: Procalcitonin 0.052 ng/mL (<0.5)
[2024-12-21 17:53] LABS: D Dimer 919 ng/ml (<500)
[2024-12-21 18:03] LABS: Creatine Kinase 133 U/L (55-170)
--- NOTE | 2024-12-21 18:10 | DI.CT.S_ITS ---
PROCEDURE: CT ANGIO CHEST PE PROTOCOL INDICATIONS: tachycardia, hypoxia TECHNIQUE: After the administration of intravenous contrast, 2 mm thick sections acquired from the pulmonary apices to the posterior costophrenic angles. 3-dimensional maximum intensity projection (MIP) coronal and sagittal reformats were then acquired through the thorax. For radiation dose reduction, the following was used: automated exposure control, adjustment of mA and/or kV according to patient size. COMPARISON: [facility], CR, XR CHEST 1V, 12/21/2024, 16:33. FINDINGS: Image quality: Diagnostic. Pulmonary arteries: Pulmonary arteries are normal in size, and demonstrate no intraluminal filling defects to suggest central pulmonary embolism. Lower Neck: No enlarged lymph nodes. Thyroid: No thyroid nodules which require sonographic follow up, per consensus guidelines. Axillae: No enlarged lymph nodes. Chest Wall: Unremarkable. Bones: Unremarkable. Lungs and Pleura: No pneumothorax or pleural effusions. Focal and consolidative clusters of nodularity are present within the lungs bilaterally predominantly within the bases, right greater than left. Heart: Heart size is normal. No pericardial effusion. Thoracic Vessels: No aortic aneurysm. Mediastinum and Neyda: No enlarged lymph nodes. Esophagus: No wall thickening. No hiatal hernia. Upper Abdomen: Visualized upper abdomen solid organs and bowel loops appear normal. IMPRESSION: No pulmonary embolus. Bilateral areas of nodularity most consistent with pneumonia. Recommend interval follow-up to document resolution. Dictated by: Angela Wu M.D. on 12/21/2024 at 19:01 Approved by: Angela Wu M.D. on 12/21/2024 at 19:03
[2024-12-21 18:15] LABS: NT-proBNP (BNP-Adult 18+) 146 pg/mL (<125); Troponin I < 0.012 ng/mL (0.01-0.034)
--- NOTE | 2024-12-21 18:43 | PC.NURSE ---
CANDY SUPERVISOR note: pt. stood to use bedside urinal and urinated all over the floor. pt. was able to get back in bed without injury. housekeeping notified to mop pt. room. pt. was advised to be cautious since floor is wet. call light within reach
[2024-12-21 18:51] LABS: RBC Urine None Seen (0-5/HPF); Squamous Epithelial Cell Urine None Seen (0-5/HPF); Urine Volume 10mL (spun); WBC Urine 1-5/HPF (0-5/HPF)
[2024-12-21 18:52] LABS: Bacteria Urine Few (2-10)
[2024-12-21 18:53] LABS: Culture Indicated Urine Cult Not Indicated
[2024-12-21] MEDS: cefTRIAXone 2,000 MG in SODIUM CHLORIDE 0.9% 100 ML 200 MG IV (20:05)
--- NOTE | 2024-12-21 20:19 | PC.NURSE ---
Cheri, pt's spouse left home and did take the pt's wallet home with her.
--- NOTE | 2024-12-21 21:04 | P.HP_ITS ---
History of Present Illness History of Present Illness Date Patient Seen: 12/21/24 Chief complaint: Respiratory symptoms, chills Narrative: Aditya Wells is a 69 y/o M , with h/o COPD, CAD s/p Cor stent ( 2010), HTN, HLD, TIA, daily tobacco use, presented to ED with 4 days of cough, wheezing, chills, Shortness of breath during coughing episodes, and also has been vomiting ( non bloody / non coffee grounds emesis) for 2 days. Emesis has been non bloody and no coffee grounds. Also has had diarrhea, non bloody , and non tarry , intermittently x 2- 3 days. Denies sick contacts. Denies immuno compromized status. No h/o DM. Denies CP, Abd Pain, Light headedness or Syncope. No dysuria or diarrhea. Denies peripheral edema, and orthopnea He quit smoking cigs yesterday afternoon, and declines Nicotine patch . He was evaluated in ED VS: tachycardiac, Tachypneic, Temp 99F, O2 sats : 88% on RA, Was put on 2 L O2 via nc, with improvement in O2 sats. Labs remarkable for elevated D Dimer: 919, Mild Leukocytosis 13 K Other labs : including ProBNP, Troponin, Lactate and Pracal WNL EKG Sinus Tach 115v , no acute ST- T wave changes noted CTA Chest : no PE Bilat area of nodularity c/q likely Pneumonia Pt was started on IV abx : Doxycycline and Ceftriaxone in ED Given Neb inh treatments, Zofran, 1 L NS and Solumedrol 125 mg IV Pt referred to Hospitalist tele team for admission and further care. [facility] [place] Medical History COPD (chronic obstructive pulmonary disease) H/O ETOH abuse Inferior [place] (2010) GERD (gastroesophageal reflux disease) HLD (hyperlipidemia) Coronary artery disease HTN (hypertension) Surgical History Hx of colectomy H/O vasectomy S/P UPPP (uvulopalatopharyngoplasty) (~1993) H/O heart artery stent (2010) Family History Father Heart disease Social History marital status: household members: spouse lives independently: Yes occupational status: previously employed Smoking Status: Former smoker alcohol intake: former substance use type: does not use Meds Home Medications and Allergies Home Medications Medication Instructions Recorded Confirmed Type metoprolol tartrate 50 mg tablet 50 mg PO BID ##0 01/30/11 12/21/24 History aspirin 81 mg tablet,delayed 81 mg PO BID ##0 12/30/17 12/21/24 History release rosuvastatin 40 mg tablet 40 mg PO DAILY 08/30/23 12/21/24 History diphenhydramine HCl 50 mg capsule 50 mg PO BEDTIME PRN Sinus Symptoms 12/21/24 12/21/24 History lisinopril 10 mg tablet 10 mg PO BID 12/21/24 12/21/24 History pseudoephedrine HCl 30 mg tablet 30 mg PO Q4-6H PRN Sinus Symptoms 12/21/24 12/21/24 History (Sudafed) varenicline tartrate 0.5 mg (11)-1 See Rx Instructions .Route .COMPLEX 12/21/24 12/21/24 History mg (42) tablets in a dose pack Allergies Allergy/AdvReac Type Severity Reaction Status Date / Time No Known Drug Allergies Allergy Verified 12/21/24 16:08 Review of Systems Review of Systems ROS: Yes All systems reviewed with the patient and are negative except as otherwise documented Exam Vital Signs (past 8 hours): - 12/21/24 16:08 12/21/24 16:19 12/21/24 16:21 Temperature 99.8 F H Pulse Rate 128 H 122 H 131 H Respiratory Rate 20 28 H 21 Blood Pressure 175/117 H Pulse Oximetry 88 L 88 L Oxygen Delivery Method Room Air Oxygen Flow Rate 12/21/24 16:30 12/21/24 16:30 12/21/24 16:45 Temperature Pulse Rate 116 H Respiratory Rate 21 Blood Pressure 185/81 H 175/88 H Pulse Oximetry 96 Oxygen Delivery Method Nasal Cannula Oxygen Flow Rate 2 12/21/24 16:45 12/21/24 17:00 12/21/24 17:00 Temperature Pulse Rate 123 H 114 H Respiratory Rate 19 21 Blood Pressure 157/85 H Pulse Oximetry 93 95 Oxygen Delivery Method Nasal Cannula Oxygen Flow Rate 2 12/21/24 17:15 12/21/24 17:16 12/21/24 17:16 Temperature Pulse Rate 103 H 109 H Respiratory Rate 16 27 H Blood Pressure 138/74 Pulse Oximetry 95 Oxygen Delivery Method Nasal Cannula Oxygen Flow Rate 2 12/21/24 17:30 12/21/24 17:30 12/21/24 17:46 Temperature Pulse Rate 107 H Respiratory Rate 19 Blood Pressure 143/71 H 132/72 Pulse Oximetry 95 Oxygen Delivery Method Oxygen Flow Rate 12/21/24 17:46 12/21/24 18:00 12/21/24 18:00 Temperature Pulse Rate 106 H 105 H Respiratory Rate 26 H 21 Blood Pressure 129/83 Pulse Oximetry 94 95 Oxygen Delivery Method Nasal Cannula Oxygen Flow Rate 12/21/24 18:15 12/21/24 18:15 12/21/24 19:26 Temperature Pulse Rate 103 H 99 H Respiratory Rate 19 Blood Pressure 126/74 Pulse Oximetry 94 96 Oxygen Delivery Method Oxygen Flow Rate 12/21/24 19:27 12/21/24 19:27 12/21/24 19:29 Temperature Pulse Rate 99 H 96 H Respiratory Rate Blood Pressure 136/83 Pulse Oximetry 96 96 Oxygen Delivery Method Nasal Cannula Oxygen Flow Rate 12/21/24 19:30 Temperature Pulse Rate Respiratory Rate Blood Pressure 127/77 Pulse Oximetry Oxygen Delivery Method Oxygen Flow Rate Oxygen Delivery Method Nasal Cannula Oxygen Flow Rate 2 Glucose POC: 133 Narrative Exam Narrative: General : Laying in bed, appears comfortable, speaking in full sentences. NAD HEENT: AT, NC , EOMI, PERRL, non icteric sclerae, normal conjunctivae, neck is supple, no JVD, No TMG Chest : No respiratory distress, BS present and equal on both sides, mild diminished at bases, few Exp wheezing . No Crackles or Rhonchi. Heart: S1, S2, RRR, No M/G/R Abd: Soft, NT, ND, No HSM. BS present and WNL Ext: no Edema, no Cyanosis, no calf tenderness bilat PP 2+ Bilat symmetric Skin: warm, dry, non diaphoretic, no rash , no bruising Neuro: A & O x 4, follows commands, speech normal. Moving all extremities. Psych: somewhat Flat affect , asking for food, is hungry. Objective Labs 12/21/24 16:45 12/21/24 16:45 Labs: Laboratory Results - last 24 hr 12/21/24 12/21/24 12/21/24 16:21 16:45 17:25 WBC 13.2 H RBC 4.73 Hgb 14.6 Hct 41.4 MCV 87.5 MCH 30.8 MCHC 35.2 RDW 13.8 Plt Count 158 Neut % (Auto) 88.0 H Lymph % (Auto) 6.3 L [place] % (Auto) 5.1 Eos % (Auto) 0.2 L Baso % (Auto) 0.4 Neut # (Auto) 27011 H Lymph # (Auto) 800 L [place] # (Auto) 700 Eos # (Auto) 0 Baso # (Auto) 100 PT 11.5 INR 1.0 APTT 18 L D-Dimer 919 H Sodium 130 L Potassium 4.1 Chloride 94 L Carbon Dioxide 24 BUN 16 Creatinine 1.17 Estimated GFR > 60 BUN/Creatinine Ratio 13.7 Glucose 133 H Lactate 1.4 Calcium 9.1 Total Bilirubin 0.9 AST 36 ALT 26 Alkaline Phosphatase 55 Total Creatine Kinase 133 Troponin I < 0.012 NT-Pro-B Natriuret Pep 146 H Total Protein 7.6 Albumin 4.5 Globulin 3.1 Albumin/Globulin Ratio 1.5 Lipase 89 Procalcitonin 0.052 Urine RBC None seen Urine WBC 1-5/hpf Ur Squamous Epith Cells None seen Urine Bacteria Few (2-10) H Ur Culture Indicated? 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 Mild Leukocytosis. Shall monitor CBC Status: Acute (3) Hypokalemia: Problem details: Likely sec to GI losses / Emesis and Diarrhea KCl replaced in ED Cont monitor Electrolytes/ BMP in am Status: Acute Time-Based Coding :: [TOTAL MINUTES] spent with patient and on the chart (including review of chart, obtaining history, exam, reviewing outside data, placing orders, documenting exam and treatment plan, and counseling patient) on [DATE].
[2024-12-21] MEDS: DOXYCYCLINE 100 MG in SODIUM CHLORIDE 0.9% 100 ML IV (21:11)
[2024-12-21] MEDS: METOPROLOL IR 50 MG TABLET PO (23:14)
[2024-12-21] MEDS: ASPIRIN EC 81 MG TABLET PO (23:14)
[2024-12-21] MEDS: FAMOTIDINE 20 MG TABLET PO (23:14)
--- NOTE | 2024-12-21 23:28 | PC.NURSE ---
Pt. admitted to room 206 by Monique BOOGIE. Alert & oriented, denies any headache, chest pain & other discomfort. Showed how to use his call light, TV & bed controls. Hungry given sandwiches, apple sauce & bryson crackers. No C/O dyspnea, SOB, RLL slight wheezing noted. Will continue plan of care & monitor.
[2024-12-21] MEDS: ENOXAPARIN 30 MG/0.3 ML SYRINGE SUBCUT (23:41)
[2024-12-22 03:00] VITALS: BP 132/91; PULSE 76; RESP 20; TEMP 36.4; O2SAT 91
[2024-12-22 05:49] LABS: Add Manual Diff / Slide Review NO; Basophils Absolute Auto 200 /uL (0-100); Basophils Percent Auto 1.3 % (0-2); Eosinophils Absolute Auto 0 /uL (0-450); Hematocrit 38.3 % (41-53); Hemoglobin 13.1 g/dL (13.5-17.5); Lymphocytes Absolute Auto 800 /uL (1100-4500); Lymphocytes Percent Auto 4.7 % (25-40); Mean Corpuscular HGB Conc 34.3 % (30-36); Mean Corpuscular Hemoglobin 30.3 PG (26-34); Mean Corpuscular Volume 88.3 fL (80-100); Monocytes Absolute Auto 800 /uL (0-900); Monocytes Percent Auto 4.4 % (3-14); Neutrophils Absolute Auto 15700 /uL (1500-7000); Neutrophils Percent Auto 89.6 % (50-75); Platelet Count 142 X10^3/uL (150-400); Red Blood Cell Count 4.34 X10^6/uL (4.5-5.9); Red Cell Distribution Width 13.7 % (11.6-14.8); White Blood Cell Count 17.5 X10^3/uL (4.5-11.0)
[2024-12-22 06:07] LABS: BUN Creatinine Ratio 14.3 (6-22); Blood Urea Nitrogen 15 mg/dL (9-20); Calcium 9.1 mg/dL (8.4-10.2); Carbon Dioxide 22 mmol/L (22-32); Chloride 99 mmol/L (98-107); Estimated Glomerular Filt Rate > 60 mL/min (>60); Glucose 149 mg/dL (80-110); HEMOLYSIS < 15 (0-50); Potassium 4.5 mmol/L (3.4-5.1); Sodium 131 mmol/L (137-145)
[2024-12-22 07:00] VITALS: O2SAT 94
--- NOTE | 2024-12-22 07:43 | PM.PN.1 ---
Subjective Subjective Interval history: From night doctor: Aditya Wells is a 69 y/o M , with h/o COPD, CAD s/p Cor stent ( 2010), HTN, HLD, TIA, daily tobacco use, presented to ED with 4 days of cough, wheezing, chills, Shortness of breath during coughing episodes, and also has been vomiting ( non bloody / non coffee grounds emesis) for 2 days. Emesis has been non bloody and no coffee grounds. Also has had diarrhea, non bloody , and non tarry , intermittently x 2- 3 days. Denies sick contacts. Denies immuno compromized status. No h/o DM. Denies CP, Abd Pain, Light headedness or Syncope. No dysuria or diarrhea. Denies peripheral edema, and orthopnea He quit smoking cigs yesterday afternoon, and declines Nicotine patch . He was evaluated in ED VS: tachycardiac, Tachypneic, Temp 99F, O2 sats : 88% on RA, Was put on 2 L O2 via nc, with improvement in O2 sats. Labs remarkable for elevated D Dimer: 919, Mild Leukocytosis 13 K Other labs : including ProBNP, Troponin, Lactate and Pracal WNL EKG Sinus Tach 115v , no acute ST- T wave changes noted CTA Chest : no PE Bilat area of nodularity c/q likely Pneumonia Pt was started on IV abx : Doxycycline and Ceftriaxone in ED Given Neb inh treatments, Zofran, 1 L NS and Solumedrol 125 mg IV Pt referred to Hospitalist tele team for admission and further care. S: Exam Vital Signs (past 8 hours): - 12/22/24 02:06 12/22/24 03:00 12/22/24 07:00 Temperature 97.6 F Pulse Rate 76 Respiratory Rate 20 Blood Pressure 132/91 H Pulse Oximetry 91 94 Oxygen Flow Rate 2 2 2 Oxygen Delivery Method Nasal Cannula Oxygen Flow Rate 2 Narrative Exam Narrative: NAD, alert and oriented. Fluent speech. Lungs are clear, normal rate and effort. Heart is regular, no murmur gallop or rub. Abdomen is soft, non distended. Extremities are free of edema. Objective Labs 12/22/24 05:32 12/22/24 05:32 Labs: Laboratory Results - last 24 hr 12/21/24 12/21/24 12/21/24 16:21 16:45 17:25 WBC 13.2 H RBC 4.73 Hgb 14.6 Hct 41.4 MCV 87.5 MCH 30.8 MCHC 35.2 RDW 13.8 Plt Count 158 Neut % (Auto) 88.0 H Lymph % (Auto) 6.3 L [place] % (Auto) 5.1 Eos % (Auto) 0.2 L Baso % (Auto) 0.4 Neut # (Auto) 44863 H Lymph # (Auto) 800 L [place] # (Auto) 700 Eos # (Auto) 0 Baso # (Auto) 100 PT 11.5 INR 1.0 APTT 18 L D-Dimer 919 H Sodium 130 L Potassium 4.1 Chloride 94 L Carbon Dioxide 24 BUN 16 Creatinine 1.17 Estimated GFR > 60 BUN/Creatinine Ratio 13.7 Glucose 133 H Lactate 1.4 Calcium 9.1 Total Bilirubin 0.9 AST 36 ALT 26 Alkaline Phosphatase 55 Total Creatine Kinase 133 Troponin I < 0.012 NT-Pro-B Natriuret Pep 146 H Total Protein 7.6 Albumin 4.5 Globulin 3.1 Albumin/Globulin Ratio 1.5 Lipase 89 Procalcitonin 0.052 Urine RBC None seen Urine WBC 1-5/hpf Ur Squamous Epith Cells None seen Urine Bacteria Few (2-10) H Ur Culture Indicated? Cult not indicated Vol Urine Centrifuged 10ml (spun) SARS-CoV-2 (PCR) Negative Influenza A (RT-PCR) Flu a negative Influenza B (RT-PCR) Flu b negative RSV (PCR) Negative 12/22/24 05:32 WBC 17.5 H RBC 4.34 L Hgb 13.1 L Hct 38.3 L MCV 88.3 MCH 30.3 MCHC 34.3 RDW 13.7 Plt Count 142 L Neut % (Auto) 89.6 H Lymph % (Auto) 4.7 L [place] % (Auto) 4.4 Eos % (Auto) 0.0 L Baso % (Auto) 1.3 Neut # (Auto) 46145 H Lymph # (Auto) 800 L [place] # (Auto) 800 Eos # (Auto) 0 Baso # (Auto) 200 H PT INR APTT D-Dimer Sodium 131 L Potassium 4.5 Chloride 99 Carbon Dioxide 22 BUN 15 Creatinine 1.05 Estimated GFR > 60 BUN/Creatinine Ratio 14.3 Glucose 149 H Lactate Calcium 9.1 Total Bilirubin AST ALT Alkaline Phosphatase Total Creatine Kinase Troponin I NT-Pro-B Natriuret Pep Total Protein Albumin Globulin Albumin/Globulin Ratio Lipase Procalcitonin Urine RBC Urine WBC Ur Squamous Epith Cells Urine Bacteria Ur Culture Indicated? Vol Urine Centrifuged SARS-CoV-2 (PCR) Influenza A (RT-PCR) Influenza B (RT-PCR) RSV (PCR) PFSH Medical History COPD (chronic obstructive pulmonary disease) H/O ETOH abuse Inferior [place] (2010) GERD (gastroesophageal reflux disease) HLD (hyperlipidemia) Coronary artery disease HTN (hypertension) Surgical History Hx of colectomy H/O vasectomy S/P UPPP (uvulopalatopharyngoplasty) (~1993) H/O heart artery stent (2010) Family History Father Heart disease Social History marital status: household members: spouse lives independently: Yes occupational status: previously employed Smoking Status: Former smoker alcohol intake: former substance use type: does not use Assessment & Plan Assessment & Plan narrative: (1) Acute hypoxemic respiratory failure: Likely sec to Pneumonia and some COPD exacerbation ( 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 Mild Leukocytosis. Shall monitor CBC (3) Hypokalemia: Likely sec to GI losses / Emesis and Diarrhea KCl replaced in ED Cont monitor Electrolytes/ BMP in am PLAN: -continue antibiotics -follow cultures -wean O2 as able -PT/OT Time-Based Coding :: [TOTAL MINUTES] spent with patient and on the chart (including review of chart, obtaining history, exam, reviewing outside data, placing orders, documenting exam and treatment plan, and counseling patient) on [DATE]. Quality VTE Deep Vein Thrombosis/Pulmonary Embolism Present on Admission: No
[2024-12-22 08:25] VITALS: BP 119/93; PULSE 79; RESP 20; TEMP 36.1; O2SAT 95
[2024-12-22 08:47] VITALS: BP 119/93; PULSE 79
[2024-12-22] MEDS: METOPROLOL IR 50 MG TABLET PO (08:47)
[2024-12-22] MEDS: FAMOTIDINE 20 MG TABLET PO (08:47)
[2024-12-22] MEDS: ASPIRIN EC 81 MG TABLET PO (08:47)
[2024-12-22] MEDS: lisinopriL 10 MG TABLET PO (08:47)
[2024-12-22] MEDS: ENOXAPARIN 40 MG/0.4 ML SYRINGE SUBCUT (08:48)
[2024-12-22] MEDS: SODIUM CHLORIDE 0.9% FLUSH 10 ML IV (08:55)
[2024-12-22] MEDS: diphenhydrAMINE 25 MG TABLET PO (09:45)
[2024-12-22] MEDS: AZITHROMYCIN 500 MG in DEXTROSE 5% IN WATER 250 ML 250 MG IV (09:45)
[2024-12-22] MEDS: guaiFENesin ER 600 MG TAB PO (09:45)
--- NOTE | 2024-12-22 11:09 | P.DS_ITS ---
History of Present Illness History of Present Illness Chief complaint: Respiratory symptoms, chills Narrative: From H&P: Aditya Wells is a 69 y/o M , with h/o COPD, CAD s/p Cor stent ( 2010), HTN, HLD, TIA, daily tobacco use, presented to ED with 4 days of cough, wheezing, chills, Shortness of breath during coughing episodes, and also has been vomiting ( non bloody / non coffee grounds emesis) for 2 days. Emesis has been non bloody and no coffee grounds. Also has had diarrhea, non bloody , and non tarry , intermittently x 2- 3 days. Denies sick contacts. Denies immuno compromized status. No h/o DM. Denies CP, Abd Pain, Light headedness or Syncope. No dysuria or diarrhea. Denies peripheral edema, and orthopnea He quit smoking cigs yesterday afternoon, and declines Nicotine patch . He was evaluated in ED VS: tachycardiac, Tachypneic, Temp 99F, O2 sats : 88% on RA, Was put on 2 L O2 via nc, with improvement in O2 sats. Labs remarkable for elevated D Dimer: 919, Mild Leukocytosis 13 K Other labs : including ProBNP, Troponin, Lactate and Pracal WNL EKG Sinus Tach 115v , no acute ST- T wave changes noted CTA Chest : no PE Bilat area of nodularity c/q likely Pneumonia Pt was started on IV abx : Doxycycline and Ceftriaxone in ED Given Neb inh treatments, Zofran, 1 L NS and Solumedrol 125 mg IV Pt referred to Hospitalist tele team for admission and further care. Discharge Providers Provider Date of admission: 12/21/24 20:58 Discharge Date: 12/22/24 Primary care physician: AKASH Calixto Consults: None. Discharge provider: Tonio Shelton MD Summary Hospital Course Discharge Diagnosis: 1. Acute hypoxemic respiratory failure, present on admission and resolved. 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 Multifocal pneumonia, present on admission and improved. As noted on CTA Chest, and given Clinical Presentation, likely Pneumonia Continue IV abx / Ceftriaxone and Doxycycline IV Monitor for further Hypoxia, currently requiring 2 L nc O2 maintaining O2 sats 93-94% Procal not elevated. Mild Leukocytosis. Shall monitor CBC 3. Hypokalemia, present on admission and improved. Likely sec to GI losses / Emesis and Diarrhea KCl replaced in ED 4. Long history of tobacco use disorder, quit in the last several days. Declines 5. Possible COPD with exacerbation, present on admission and improved. Hospital Course: He was admitted for COPD exacerbation and pneumonia and treated with IV antibiotics, IV fluids, IV steroids and bronchodilators. He improved dramatically. He was on room air and breathing comfortably in the afternoon of December 22. He declined staying another night and was adamant to return home. He was felt to be reasonably stable for discharge home on oral antibiotics, as well as steroids for 5 days, and it inhaler. Status at Discharge Cognitive/behavioral status at discharge: oriented Functional status at discharge: independent ambulation Overall status at discharge: patient is progressing back to baseline Time Spent with Patient Time spent: Greater than 30 minutes Exam Vital Signs (past 8 hours): - 12/22/24 07:00 12/22/24 08:25 12/22/24 08:47 Temperature 97 F L Pulse Rate 79 79 Respiratory Rate 20 Blood Pressure 119/93 H 119/93 H Pulse Oximetry 94 95 Oxygen Flow Rate 2 2 Oxygen Delivery Method Nasal Cannula Oxygen Flow Rate 2 Narrative Exam Narrative: NAD, alert and oriented. Fluent speech. Lungs notable for expiratory wheezing, with normal rate and effort. Heart is regular, no murmur gallop or rub. Abdomen is soft, non distended. Extremities are free of edema. Objective ECG Impression: Sinus tachycardia Nonspecific ST and T wave abnormality Imaging Chest x-ray: Radiologist's impression: No acute cardiothoracic process. CT scan - chest: Radiologist's impression: No pulmonary embolus. Bilateral areas of nodularity most consistent with pneumonia. Recommend interval follow-up to document resolution. Labs 12/22/24 05:32 12/22/24 05:32 Labs: Laboratory Results - last 24 hr 12/21/24 12/21/24 12/21/24 16:21 16:45 17:25 WBC 13.2 H RBC 4.73 Hgb 14.6 Hct 41.4 MCV 87.5 MCH 30.8 MCHC 35.2 RDW 13.8 Plt Count 158 Neut % (Auto) 88.0 H Lymph % (Auto) 6.3 L [place] % (Auto) 5.1 Eos % (Auto) 0.2 L Baso % (Auto) 0.4 Neut # (Auto) 32659 H Lymph # (Auto) 800 L [place] # (Auto) 700 Eos # (Auto) 0 Baso # (Auto) 100 PT 11.5 INR 1.0 APTT 18 L D-Dimer 919 H Sodium 130 L Potassium 4.1 Chloride 94 L Carbon Dioxide 24 BUN 16 Creatinine 1.17 Estimated GFR > 60 BUN/Creatinine Ratio 13.7 Glucose 133 H Lactate 1.4 Calcium 9.1 Total Bilirubin 0.9 AST 36 ALT 26 Alkaline Phosphatase 55 Total Creatine Kinase 133 Troponin I < 0.012 NT-Pro-B Natriuret Pep 146 H Total Protein 7.6 Albumin 4.5 Globulin 3.1 Albumin/Globulin Ratio 1.5 Lipase 89 Procalcitonin 0.052 Urine RBC None seen Urine WBC 1-5/hpf Ur Squamous Epith Cells None seen Urine Bacteria Few (2-10) H Ur Culture Indicated? Cult not indicated Vol Urine Centrifuged 10ml (spun) SARS-CoV-2 (PCR) Negative Influenza A (RT-PCR) Flu a negative Influenza B (RT-PCR) Flu b negative RSV (PCR) Negative 12/22/24 05:32 WBC 17.5 H RBC 4.34 L Hgb 13.1 L Hct 38.3 L MCV 88.3 MCH 30.3 MCHC 34.3 RDW 13.7 Plt Count 142 L Neut % (Auto) 89.6 H Lymph % (Auto) 4.7 L [place] % (Auto) 4.4 Eos % (Auto) 0.0 L Baso % (Auto) 1.3 Neut # (Auto) 41637 H Lymph # (Auto) 800 L [place] # (Auto) 800 Eos # (Auto) 0 Baso # (Auto) 200 H PT INR APTT D-Dimer Sodium 131 L Potassium 4.5 Chloride 99 Carbon Dioxide 22 BUN 15 Creatinine 1.05 Estimated GFR > 60 BUN/Creatinine Ratio 14.3 Glucose 149 H Lactate Calcium 9.1 Total Bilirubin AST ALT Alkaline Phosphatase Total Creatine Kinase Troponin I NT-Pro-B Natriuret Pep Total Protein Albumin Globulin Albumin/Globulin Ratio Lipase Procalcitonin Urine RBC Urine WBC Ur Squamous Epith Cells Urine Bacteria Ur Culture Indicated? Vol Urine Centrifuged SARS-CoV-2 (PCR) Influenza A (RT-PCR) Influenza B (RT-PCR) RSV (PCR) [facility] Medical History COPD (chronic obstructive pulmonary disease) H/O ETOH abuse Inferior ID (2010) GERD (gastroesophageal reflux disease) HLD (hyperlipidemia) Coronary artery disease HTN (hypertension) Surgical History Hx of colectomy H/O vasectomy S/P UPPP (uvulopalatopharyngoplasty) (~1993) H/O heart artery stent (2010) Family History Father Heart disease Social History marital status: household members: spouse lives independently: Yes occupational status: previously employed Smoking Status: Former smoker alcohol intake: former substance use type: does not use Discharge Assessment & Plan Assessment and Plan Assessment: 1. Acute hypoxemic respiratory failure, present on admission and resolved. 2. Multifocal pneumonia, present on admission and improved. 3. Hypokalemia, present on admission and improved. 4. Long history of tobacco use disorder, quit in the last several days. 5. Possible COPD with exacerbation, present on admission and improved. Plan of Treatment: Discharge home with prednisone 40 daily for 5 days, doxycycline b.i.d. for 5 days, albuterol as needed. He declines Nicoderm. He was asked to see his primary care within the next several days to 6 days for re-evaluation. Return to hospital for fevers, or dyspnea. Discharge Plan Discharge Plan Patient Disposition: Home Provider Discharge Comment: The patient was insistent on returning home, he was likely stable for discharge home with close follow up. Discharge orders & Medications Prescriptions: New prednisone 20 mg tablet 40 mg PO DAILY Qty: 10 0RF doxycycline monohydrate 100 mg capsule 100 mg PO BID Qty: 10 0RF albuterol sulfate 90 mcg/actuation HFA aerosol inhaler 1 inh inhalation QID Qty: 8.5 2RF Spiriva Respimat 1.25 mcg/actuation mist 2 puff inhalation DAILY Qty: 4 2RF Continued metoprolol tartrate 50 mg Tablet 50 mg PO BID Qty: 0 aspirin 81 MG tablet,delayed release (DR/EC) 81 mg PO BID Qty: 0 lisinopril 10 mg tablet 10 mg PO BID varenicline tartrate 0.5 mg (11)- 1 mg (42) tablets,dose pack See Rx Instructions .ROUTE .COMPLEX Patient Comments: 12/21 is day two Rx Instructions: as directed diphenhydramine HCl 50 mg Capsule 50 mg PO BEDTIME PRN (Reason: Sinus Symptoms) pseudoephedrine HCl [Sudafed] 30 mg Tablet 30 mg PO Q4-6H PRN (Reason: Sinus Symptoms) Rx Instructions: DNExceed 4 doses/24h rosuvastatin 40 mg tablet 40 mg PO DAILY Medication counseling provided by Pharmacist: No Follow up/Referrals: Jia Orlando ARNP [Primary Care Provider] - (Janet guido nurse will call you with a follow up appointment if you do not here from them by the end of this week please call them for a appointment ) Diet/Activity/Treatments Diet: Diet as Tolerated Skin/Wound/Dressing Care Report to your healthcare provider any signs of infection, such as:: chills, fever Visit Report/Discharge Packet Instructions: DI for Chronic Obstructive Pulmonary Disease, DI for Pneumonia -- Adult Stand Alone Forms: Patient Portal/API Discharge Data Primary Care Provider: Jia Orlando Quality VTE Deep Vein Thrombosis/Pulmonary Embolism Present on Admission: No
[2024-12-22] MEDS: cefTRIAXone 1,000 MG in SODIUM CHLORIDE 0.9% 100 ML 200 MG IV (11:11)
--- NOTE | 2024-12-22 13:43 | CM.DANOTE ---
Initial DCP Assessment Visit Note Reviewed EMR and team rounds for status updates. This ROPE MAKER was unable to meet with pt f/f due to unit triage needs today. Pt resides independently in his own home with his in [place]. He was medically cleared for home d/c, and his transported him home. He denied any CM d/c assistance needs prior to his discharge. Payor: Medicare PCP: Rohan Orlando Pt is a 69 year-old M with a hx of TIA, hypertension, COPD, and tobacco use who presented to the ED last evening with c/o fevers, confusion, SOB, wheezing, and a cough. He's had some episodes of nausea and vomiting earlier in the day as well. In the ED, he was found to be tachycardic and hypoxic. CT chest was negative for pneumonia, however it was suspected. Pt was started on IV ABO's, 2LO2, and Duo Nebs for SOB with good benefit. Dx was suspicious for COPD exacerbation and non-specific pneumonia. He was admitted to the floor for further tx and monitoring, and was able to improve enough for home d/c earlier this morning. No further needs are indicated at this time. Discharge Planning/Care Management Advanced directive,confirm from FACILITY Start: 12/21/24 21:45 Freq: Q24H Status: Discharge Protocol: Document 12/21/24 21:45 MP (Rec: 12/21/24 22:05 MP [id number]) Advance Directive, confirm on record Time 22:05 Person contacted Pt. Copy received No CM Discharge Assessment Start: 12/22/24 13:41 Freq: Status: Discharge Protocol: Document 12/22/24 13:41 DPL (Rec: 12/22/24 13:43 DPL [id number]) Discharge Planning Assessment Assigned Counter Manager NAYA Galo Advance Directives? No Advance Directives on File No History Provided By Medical Record Has Patient been admitted in last 30 No days? Prior Living Arrangements House Household Members spouse Type of transporation used prior to Drives own vehicle admit Independent with ADL's Yes Is patient alert and oriented? Yes Comment N/A Caregiver for Another No Comment N/A Comment No identified home d/c needs at this time. Barriers to Discharge No Discharge Plan Home Transportation Arrangement Spouse will transport. Referrals Initiated None needed Review Status In Process Please Provide Date Initial DC 12/22/24 Assessment Was Performed
== END 2024-12-22 13:05 | disposition home or self-care (01) | DRG 193 ==
LOC: ED 20:03 → AC 20:59
PROVIDERS: Emergency Medicine; Admitting Provider Hospitalist; Emergency Provider Student in an Organized Health Care Education/Training Program; PCP Nurse Practitioner; Referring Provider Student in an Organized Health Care Education/Training Program; Visit Provider Hospitalist
DX: J18.9 Pneumonia, unspecified organism (principal); J96.01 Acute respiratory failure with hypoxia; J44.1 Chronic obstructive pulmonary disease with (acute) exacerbation; I25.10 Atherosclerotic heart disease of native coronary artery without angina pectoris; R00.0 Tachycardia, unspecified; E87.6 Hypokalemia; R19.7 Diarrhea, unspecified; R11.10 Vomiting, unspecified; I10 Essential (primary) hypertension; I25.2 Old myocardial infarction; E78.5 Hyperlipidemia, unspecified; Z86.73 Personal history of transient ischemic attack (TIA), and cerebral infarction without residual deficits; Z95.5 Presence of coronary angioplasty implant and graft; Z72.0 Tobacco use
CPT/HCPCS: 0241U; 36415; 71045; 71275; 80048; 80053; 81003; 81015; 82550; 83605; 83690; 83880; 84145; 84484; 85025; 85379; 85610; 85730; 87040; 93005; 94640; 96361; 96365; 96375; 99285; A9270; J0696; J1650; J2405; J2919; Q9967